=== PATIENT | female | born 1935 | race Caucasian/White ===

== ENCOUNTER 2023-09-05 21:25 | Emergency (ER) | payer MEDICARE, MEDICAID, SELFPAY ==
--- NOTE | ~2023-09-05 | XR_ITS ---
EXAMINATION: CHEST Abdomen CLINICAL INFORMATION: Evaluate prior to MRI COMPARISON: None. TECHNIQUE: Supine frontal view of the chest Frontal view of the abdomen FINDINGS: Chest: Tortuous aorta. No mediastinal or hilar mass. Low lung volumes. No dense consolidation or edema. There are no findings which would preclude safe performance of MRI. ABDOMEN: There is a large amount of gas and enteric material within large and small bowel throughout the abdomen and pelvis to the level of the rectum and nonobstructed pattern. Large fecal residue. Degenerative change in the spine. Narrowing and sclerosis with proliferative change around the right hip. There are no findings which would preclude safe performance of MRI XR/XR KUB IMPRESSION: No findings which would contraindicate safe performance of MRI
--- NOTE | ~2023-09-05 | MR_ITS ---
EXAMINATION: MR BRAIN WITHOUT CONTRAST CLINICAL INFORMATION: Acute vision changes. History of multiple sclerosis and lupus. COMPARISON: CT scan of the head earlier 09/06/2023. TECHNIQUE: MRI of the brain was obtained using routine sequences without contrast. FINDINGS: No diffusion abnormalities are identified to suggest an acute or subacute infarct. No mass effect or midline shift is seen. There is commensurate prominence of the ventricles and sulci consistent with diffuse volume loss. There are scattered areas of hyperintense T2 and FLAIR signal in the periventricular subcortical white matter, most consistent with chronic microvascular ischemic changes. In view of the patient's history, areas of demyelination cannot be excluded. No extra-axial fluid collections are seen. The brainstem appears normal. No pathologic magnetic susceptibility artifact is identified on the gradient refocused acquisition. The cerebellar tonsils have normal contour and position, and the craniocervical junction appears normal. Marrow signal and midline structures are normal. There is extensive hyperostosis frontalis interna. The orbits appear normal bilaterally. The major intracranial flow-voids at the level of the [place] of [place] are preserved. The dural venous sinus flow-voids are maintained. There is trace fluid at the right mastoid tip. There is mild mucoperiosteal thickening in the inferior right sphenoid sinus and in the bilateral anterior ethmoid air cells. MR/MR head/brain wo con IMPRESSION: 1. There are no acute bleeds or territorial infarcts. No masses are demonstrated. 2. There are chronic microvascular ischemic changes and there is diffuse volume loss.
--- NOTE | ~2023-09-05 | XR_ITS ---
EXAMINATION: CHEST Abdomen CLINICAL INFORMATION: Evaluate prior to MRI COMPARISON: None. TECHNIQUE: Supine frontal view of the chest Frontal view of the abdomen FINDINGS: Chest: Tortuous aorta. No mediastinal or hilar mass. Low lung volumes. No dense consolidation or edema. There are no findings which would preclude safe performance of MRI. ABDOMEN: There is a large amount of gas and enteric material within large and small bowel throughout the abdomen and pelvis to the level of the rectum and nonobstructed pattern. Large fecal residue. Degenerative change in the spine. Narrowing and sclerosis with proliferative change around the right hip. There are no findings which would preclude safe performance of MRI XR/XR chest 1V IMPRESSION: No findings which would contraindicate safe performance of MRI
--- NOTE | ~2023-09-05 | CT_ITS ---
EXAMINATION: CT head/brain wo IV con CLINICAL INFORMATION: Reason for Exam ams COMPARISON: None. TECHNIQUE: Contiguous axial imaging was performed from the skull base to vertex without intravenous contrast. Sagittal and coronal reformatted images were obtained. This CT examination was performed using dose optimization techniques as appropriate, variously including the following: * Automated exposure control * Adjustment of mA and/or kV according to patient size (this includes techniques or standardized protocols for targeted exams where dose is matched to indication/reason for exam; i.e. extremities or head) Use of iterative reconstruction technique DLP: 562 mGy-cm FINDINGS: No acute osseous or soft tissue abnormality. Degenerative changes of the left greater than right temporomandibular joints. The mastoid air cells and visualized portions of the paranasal sinuses are well aerated. There is no evidence of acute intracranial hemorrhage or territorial infarction. No abnormal mass effect or midline shift is seen. Colin to white matter differentiation is well preserved. No extra-axial fluid collections are identified. No hydrocephalus. No significant volume loss. Patchy periventricular and deep white matter hypoattenuation is consistent with mild to moderate small vessel ischemic changes. CT/CT head/brain wo IV con IMPRESSION: No acute intracranial abnormality including hemorrhage, mass effect, hydrocephalus, or acute territorial edematous infarction.
[2023-09-05 21:35] VITALS: BP 106/64; BP 119/72; PULSE 80; PULSE 87; RESP 16; TEMP 36.7; O2SAT 94; O2SAT 96; BMI 25.0
--- NOTE | 2023-09-05 22:06 | ED.GENADULT ---
HPI - General Adult General Chief complaint: Failure to Thrive Stated complaint: increased confusion, visual changes, hip pain Time Seen by Provider: 09/05/23 21:35 Source: patient and EMS Mode of arrival: EMS Limitations: altered mental status History of Present Illness HPI narrative: Patient's history of dementia details not available from group home place was at [facility] earlier today discharge comes back as staff noticed that she is more confused patient complaining of vision changes keep changing her complaints seems to be very confused feels that cough is causing her vision change Related Data Allergies Allergy/AdvReac Type Severity Reaction Status Date / Time No Known Allergies Allergy Verified 09/05/23 21:39 Review of Systems Review of Systems: Yes Unobtainable due to mental condition [facility] Social History Social History Advance Directives: No Advance Directives Information Provided: No Do you have a plan to hurt others: No Plan Physical Exam ED Vital Signs: Vital Signs - 24 hr 09/05/23 21:35 09/06/23 01:48 Temperature 98.0 F 97.9 F Pulse Rate 87 76 Respiratory Rate 16 16 Blood Pressure 119/72 138/67 Pulse Oximetry 96 97 Oxygen Delivery Method Room Air Room Air BMI result Body Mass Index 25.0 Appearance: Alert. Oriented X2-3. No acute distress. Eyes: PERRLA, No Nystagmus cataract+ ENT: Pharynx normal. Oral Mucosa moist Neck: Normal inspection. Neck supple. CVS: Normal heart rate and rhythm. Pulses normal. Respiratory: No respiratory distress. Equal air entry bilateral, no wheezing/rales/rhonchi Abdomen: Soft and nontender. Bowel sounds are present, no mass palpable, no CVA tenderness Skin: Skin warm and dry. Normal skin color. Normal skin turgor. Extremities: No lower extremity edema. No calf tenderness Neuro: Oriented X 2-3. No motor deficit. No sensory deficit.No cerebellar signs , cranial nerves II-XII intact Medical Decision Making Medical Decision Making [facility] Narrative: Patient with increased confusion with dementia will get records from [facility] no focal deficits labs are stable will get CT head rule out CVA and get case management Differential Diagnosis Differential Diagnoses: The differential diagnosis associated with the presentation includes Dementia/metabolic encephalopathy/UTI/CVA Lab Data [facility] Lab Attestation statement: I reviewed the patient's lab results. 09/05/23 23:45 09/05/23 23:45 Labs: Lab Results 09/05/23 09/06/23 Range/Units 23:45 01:35 WBC 10.3 (4.8-10.8) X10*3/uL RBC 4.00 L (4.20-5.50) X10*6/uL Hgb 12.2 (12.0-16.0) g/dl Hct 36.5 L (37.0-47.0) % MCV 91.3 (80.0-98.0) fL MCH 30.5 (27.0-33.0) pg MCHC 33.4 (31.0-35.0) g/dl RDW 19.3 H (11.0-16.0) % Plt Count 199 (160-400) X10*3/uL MPV 12.3 (9.4-12.3) fL Immature Gran % (Auto) 0.4 (0.0-0.4) % Neut % (Auto) 59.5 (45-73) % Lymph % (Auto) 25.8 (20-40) % [place] % (Auto) 10.9 (2-11) % Eos % (Auto) 2.7 (0-4) % Baso % (Auto) 0.7 (0-2) % Lymph # (Auto) 2.7 (1.2-4.9) X10*3/uL [place] # (Auto) 1.1 (0.1-1.2) X10*3/uL Eos # (Auto) 0.3 (0.0-0.4) X10*3/uL Baso # (Auto) 0.1 (0.0-0.2) X10*3/uL Abs Immat Gran (auto) 0.04 H (0.00-0.03) X10*3/uL Absolute Neuts (auto) 6.1 (2.0-8.3) x10*3/uL Absolute Nucleated RBC 0.000 (0.0-0.012) X10*3/uL Nucleated RBC % (auto) 0.0 (0.0-0.2) /100WBC Sodium 139 (135-145) mmol/L Potassium 3.9 (3.3-5.1) mmol/L Chloride 106 (96-108) mmol/L Carbon Dioxide 23 (22-29) mmol/L Anion Gap 14 (12-20) BUN 28 H (9-16) mg/dL Creatinine 0.86 (0.5-1.4) mg/dL Estim Creat Clear Calc 41.4 Estimated GFR > 60 Random Glucose 102 (60-115) mg/dL Calcium 9.4 (8.4-10.2) mg/dL Total Bilirubin 0.5 (0.0-1.0) mg/dL AST 14 (5-31) U/L ALT 9 (0-31) U/L Alkaline Phosphatase 49 (39-117) U/L Total Protein 6.6 (6.5-8.0) g/dL Albumin 3.9 (3.5-5.0) g/dL Urine Color Dark Yellow Urine Appearance Clear Urine pH 5.5 (5.0-9.0) Ur Specific Arp 1.025 (1.005-1.025) Urine Protein Negative (Neg-Trace) mg/dL Urine Glucose (UA) Negative (Negative) mg/dL Urine Ketones Negative (Negative) mg/dL Urine Blood Negative (Negative) Urine Nitrite Negative (Negative) Ur Leukocyte Esterase Trace H (Negative) Discharge Plan Discharge Clinical Impression: Dementia, Acute on chronic alteration in mental status Patient Disposition: Still a Patient Print Language: Uruguayan
--- NOTE | 2023-09-05 23:47 | MHC.EDTECH ---
Labs collected on Pt. Pt advised Dr ordered a urine sample but states she does not have to go at this time and states that she can tell us when she has to go.
[2023-09-05 23:49] LABS: MANUAL DIFF FLAG NO
[2023-09-05 23:50] LABS: Basophils Absolute Auto 0.1 X10*3/uL (0.0-0.2); Basophils Percent Auto 0.7 % (0-2); Eosinophils Absolute Auto 0.3 X10*3/uL (0.0-0.4); Eosinophils Percent Auto 2.7 % (0-4); Hematocrit 36.5 % (37.0-47.0); Hemoglobin 12.2 g/dl (12.0-16.0); Imm Gran Abs Auto 0.04 X10*3/uL (0.00-0.03); Imm Gran Pct Auto 0.4 % (0.0-0.4); Lymphocytes Absolute Auto 2.7 X10*3/uL (1.2-4.9); Lymphocytes Percent Auto 25.8 % (20-40); Mean Corpuscular HGB Conc 33.4 g/dl (31.0-35.0); Mean Corpuscular Hemoglobin 30.5 pg (27.0-33.0); Mean Corpuscular Volume 91.3 fL (80.0-98.0); Mean Platelet Volume 12.3 fL (9.4-12.3); Monocytes Absolute Auto 1.1 X10*3/uL (0.1-1.2); Monocytes Percent Auto 10.9 % (2-11); Neutrophils Absolute Auto 6.1 x10*3/uL (2.0-8.3); Neutrophils Percent Auto 59.5 % (45-73); Platelet Count 199 X10*3/uL (160-400); Red Cell Distribution Width 19.3 % (11.0-16.0); White Blood Count 10.3 X10*3/uL (4.8-10.8)
[2023-09-06 00:07] LABS: Alanine Aminotransferase 9 U/L (0-31); Albumin Level 3.9 g/dL (3.5-5.0); Alkaline Phosphatase 49 U/L (39-117); Anion Gap 14 (12-20); Aspartate Amino Transferase 14 U/L (5-31); Bilirubin Total 0.5 mg/dL (0.0-1.0); Blood Urea Nitrogen 28 mg/dL (9-16); Calcium 9.4 mg/dL (8.4-10.2); Carbon Dioxide 23 mmol/L (22-29); Chloride 106 mmol/L (96-108); Creatinine Clr Calc Pharmacy 41.4; Estimated Glomerular Filt Rate > 60; Glucose Random 102 mg/dL (60-115); Potassium 3.9 mmol/L (3.3-5.1); Sodium 139 mmol/L (135-145); Total Protein 6.6 g/dL (6.5-8.0)
--- NOTE | 2023-09-06 01:39 | MHC.EDTECH ---
T/w ambulated with Pt to and from bathroom with walker. Urine sample provided and sent. Pt lying in stretcher at this time.
[2023-09-06 01:41] LABS: Appearance Urine Clear; Color Urine Dark Yellow; Glucose Urine UA Negative (Negative); Leukocyte Esterase Urine Trace (Negative); Nitrite Urine Negative (Negative); PH 5.5 (5.0-9.0); Specific Gravity - Urine 1.025 (1.005-1.025); UMIC TRIGGER UACC YES; Urine Blood Negative (Negative); Urine Ketones Negative (Negative); Urine Protein Negative (Neg-Trace)
[2023-09-06 01:48] VITALS: BP 138/67; PULSE 76; RESP 16; TEMP 36.6; O2SAT 97
[2023-09-06 01:51] LABS: Bacteria Urine 1+ (None Seen); Hyaline Casts Urine 0-2 /LPF (0-2); RBC Urine 0-2 /HPF (0-2); UACC Culture Trigger YES
--- NOTE | 2023-09-06 03:10 | PC.NURSE ---
Pt resting at the bedside. No apparent distress noted. Able to engage in conversation with intermittent episodes of confusion. Pt is able to ambulate to the bathroom with a walker and one assist for safety.
[2023-09-06 04:00] VITALS: BP 108/58; PULSE 66; RESP 16; TEMP 36.2; O2SAT 96
--- NOTE | 2023-09-06 06:11 | MHC.EDTECH ---
Assisted Pt to and from bathroom, now resting comfortably in stretcher.
--- NOTE | 2023-09-06 08:33 | MHC.EDTECH ---
Patient ate 100% of breakfast. Patient currently in rinaldi bed. Patient states she is comfortable. Patient resting, respirations even and unlabored.
[2023-09-06 10:24] LABS: C Reactive Protein < 0.10 mg/dL (< or = 0.50)
[2023-09-06 10:50] LABS: Erythrocyte Sedimentation Rate 9 MM/HR (0-20)
[2023-09-06 13:04] VITALS: BP 137/70; PULSE 78; RESP 16; O2SAT 98
--- NOTE | 2023-09-06 14:09 | MHC.CM.ED ---
Received case management consult overnight from Dr Riley. Patient came to the ER via EMS due to confusion, visual changes and hip pain. Work up essentially negative. Physical therapy eval is pending. Per [facility], patient was inpatient there from 08/29-09/02 due to question of TIA. Capacity eval was completed. Patient was found to have capacity to make her own decisions. Patient was found to have severe cataracts, was d/c'd home with [facility] and outpatient follow up. Patient declined VNA when at home. Patient returned to [facility] ER on 09/04 due to vision issues. Patient declined vision acuity test at [facility]. Patient was d/c'd home and then apparently came to [facility] ER. Awaiting copy of [facility] d/c summary and HCP. Attempted to contact patient's friend/HCP, Cathyleonila Park via telephone at [phone]. Cathy is unable to talk at this time because she is in [place]. She will return call to kristie. Waiting for PT eval to determine safe d/c plan. Continue to monitor for d/c needs.
[2023-09-06 15:22] LABS: COVID-19 Test Negative (Negative); IDNOW Serial# 152EDE1D
--- NOTE | 2023-09-06 15:33 | MHC.CM.ED ---
Received return telephone call from Cathy. Cathy reports patient has been to [facility] 6 times in the past 30 days. Patient has received all services at home except for digital asset specialist. Patient's digital asset specialist has reported to Cathy that she is unsure of patient's ability to take care of herself and questions her grasp on reality. Cathy was able to further explain that patient states there is no adequate medical services in [facility]. 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 Cathy also states patient has been having a hard time dealing with life due to her limited eye vision, her mother passing away over a year ago and her older sister passing away over 3 years ago. Cathy also stated patient's biggest fear is dying of pneumonia. Patient has stated I feel safe in the hospital because people don't in the hospital. 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 T/W has concerns about patient safely discharging home at this time. Thelma HEEL BREASTER and Anamaria RN made aware. Psych consult ordered for capacity to see if patient can safely return home. Continue to monitor for d/c needs.
--- NOTE | 2023-09-06 17:51 | PC.NURSE ---
pt restless throughout shift, camera placed on pt in rinaldi as she will jump out of bed. pt demanding to walk home. educated pt on the safety of his matter. CM spoke with pts HCP. pt currently awaiting PT and psych eval. pt requiring frequent redirection and re-education related to why she is here and the plan of care. pt is otherwise alert and oriented but forgetful
[2023-09-06 18:10] VITALS: BP 118/60; PULSE 71; RESP 18; TEMP 36.6; O2SAT 98
--- NOTE | 2023-09-06 19:52 | PC.NURSE ---
pt repeatedly trying to get out of bed, says she is going anywhere but here, I have had enough of being in the hallway , no rooms available at this time. pt is upset she doesnt have a tv.
[2023-09-06] MEDS: OLANZapine 2.5 MG TABLET PO (21:06)
--- NOTE | 2023-09-06 21:11 | PC.NURSE ---
pt medicated per MAR, pt reports feeling restless
--- NOTE | 2023-09-06 22:29 | PC.NURSE ---
assist with ambulation to bathroom
[2023-09-06] MEDS: Melatonin 3 MG TABLET PO (22:55)
[2023-09-06] MEDS: Acetaminophen 325 MG TABLET 650 MG PO (23:45)
--- NOTE | 2023-09-07 00:18 | PC.NURSE ---
pt reporting her fentanyl patch was removed yesterday for MRI. now c/o R hip pain d/t not having patch. aware
--- NOTE | 2023-09-07 02:42 | PC.NURSE ---
spoke with pharmacy regarding fentanyl patch, 12 mcg not available. aware
[2023-09-07 02:56] VITALS: BP 128/67; PULSE 72; RESP 20; TEMP 36.9; O2SAT 98
[2023-09-07] MEDS: fentaNYL citrate/PF 100 MCG/2 ML VIAL 50 MCG IVPUSH (02:59)
--- NOTE | 2023-09-07 03:11 | PC.NURSE ---
pt medicated per MAR for pain
--- NOTE | 2023-09-07 03:23 | PC.NURSE ---
IV to L wrist infiltrated, new 22g IV placed to R upper arm
--- NOTE | 2023-09-07 03:58 | PC.NURSE ---
pt awake on the stretcher but resting comfortably at this time
--- NOTE | 2023-09-07 05:09 | PC.NURSE ---
pt resting comfortably with eyes closed, breathing even and unlabored. no apparent distress noted at this time
[2023-09-07 06:33] VITALS: BP 112/47; PULSE 59; RESP 18; TEMP 36.6; O2SAT 96
[2023-09-07] MEDS: fentaNYL 12 MCG PATCH.TD72 TRANSDERMA ×3 (08:25→10:33)
[2023-09-07] MEDS: Acetaminophen 325 MG TABLET 650 MG PO (11:37)
--- NOTE | 2023-09-07 13:42 | MHC.CM.ED ---
Patient remains in ER. Psych consult is pending to evaluate if patient has the capacity to make her own medical decisions. Attempted to speak to patient's sister/2nd HCP, Jojo, via telephone at [phone] for additional collateral. Left message requesting return telephone call. Patient requesting to speak with CM. CM met with patient again and explained that patient was waiting for a physical therapy eval and for psych to see her. Patient then stated I know what is wrong with the healthcare system . Patient then proceded to state There are not enough good PCP's. So everyone comes to the ER. The ER will need to start providing PCP care to patients to fix this. Continue to monitor for d/c needs.
[2023-09-07 19:44] VITALS: BP 120/77; PULSE 94; RESP 16
--- NOTE | 2023-09-07 19:49 | PC.NURSE ---
This RN assumed pt care @ 1900. Pt upset about not having a working tv. Pt requested and given dinner. Pt repositioned in bed for comfort Pt ca&ox3, no signs of distress. Plan of care ongoing.
--- NOTE | 2023-09-07 21:27 | PC.NURSE ---
Pt requested Zyprexa and when this RN attempted to administer med, pt took med and stated im not taking it now. I will take it at 2300. This RN asked pt take med now orthopedics teacher could bring med back at 2300. Pt stated I cannot trust you, you are all liars. Pt gave med back to RN after refusing. Pt states I hope you go to [facility] and I hope everyone that works here goes to [facility] Zyprexa wasted. Plan of care ongoing.
--- NOTE | 2023-09-07 22:59 | PC.NURSE ---
Pt requested and assisted to restroom. Pt requesting Zyprexa. Plan of care ongoing.
[2023-09-07] MEDS: OLANZapine 2.5 MG TABLET PO (23:05)
--- NOTE | 2023-09-07 23:07 | PC.NURSE ---
Pt given zyprexa as requested. Pt states I want something that will help me sleep, and if I dont get anything I'm going to make it hell for everyone here. Plan of care ongoing.
[2023-09-07] MEDS: LORazepam 2 MG/ML VIAL 1 MG IVPUSH (23:22)
[2023-09-07 23:25] VITALS: BP 111/70; PULSE 80; RESP 16; TEMP 36.7; O2SAT 98
--- NOTE | 2023-09-07 23:26 | MHC.EDTECH ---
This tech took over care of patient at 2300,hourly rounds and vitals completed,call bruno in reach
--- NOTE | 2023-09-08 00:06 | MHC.EDTECH ---
Patient ambulated with a 1 assist to the bathroom,patient has a slow and steady gait,patient urinated and is back in bed at this time.call bruno in reach
[2023-09-08] MEDS: LORazepam 1 MG TABLET 2 MG PO (02:43)
--- NOTE | 2023-09-08 04:40 | MHC.EDTECH ---
Assisted pt to bathroom with walker multiple times at every 30 min intervals. After being medicated by RN, pt started to get more unsteady on feet and bedside commode was brought to pt room. Pt being very difficult and adamant to walk to bathroom. This pct and RN explained to pt that it is only for her safety to make sure she does not fall. Pt expressed her frustration with her care and stated you are all liars and just want to keep me here to Camera in pt room to alert when pt gets up.
--- NOTE | 2023-09-08 04:55 | PC.NURSE ---
Pt A+Ox2 forgetful. Pt frequently getting up to urinate. One time dose PO ativan given as sleep aid. Pt demanded to get up and walk with walker to bathroom through unsteady. Bedside commode placed in room to minimize chance of fall. Camera in room and bed alarm on for safety. Call bruno within reach
--- NOTE | 2023-09-08 06:42 | MHC.EDTECH ---
Pt refused vitals. Pt states I'm not here for anything medical so you're not allowed to do that . RN notified. Pt keeps trying to get out of bed and demanding that the RN gives her more pills. Requesting advil, adivan and morphine. Multiple episodes of confusion where pt forgets that RN and Pct already talked to her. Pt requiring constant redirection. RN aware
[2023-09-08 10:00] VITALS: BP 133/66; PULSE 71; RESP 15; O2SAT 97
--- NOTE | 2023-09-08 10:39 | MHC.CM.PN ---
EMR REVIEWED, P.T. ATTEMPTED TO EVAL THIS AM HOWEVER UNABLE TO AROUSE PT AND WILL REVISIT, PSYCH CONSULT FOR CAPACITY STILL PENDING, CM WILL CONT TO FOLLOW.
--- NOTE | 2023-09-08 10:51 | PM.PSYCN ---
History of Present Illness Date of Service: 09/08/23 Chief Complaint: increased confusion, visual changes, hip pain Reason for Consult: capacity eval Requesting physician: Thelma Jeff Discussed with referring provider: Yes Sources of Information: patient interviewed and chart reviewed HPI Narrative: pt seen lying in bed. she is slightly irritable and dismissive upon approach. pt states sheis here inhospital due to police calling ambulance due toconcerns about how she was walking in common room at assisted living. pt states she came to common room to ask someone for help because her clock had stopped working. 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 She asks me to call her Dr Hernandez. She does report a history of being misjudged and at times discriminated due to being a woman, saying everyone thought I should just get but I loved teaching the students. pt participated in MOCA screening, she reported having cataracts so could not do some of the tests that required seeing well or drawing; she was able to name 3 animals , recalled 5 /5 immediately but only 1 after five minutes. she was able to recite 5 digits backward without hesitation. she was able to count backwards from 100 She scored 100% on abstractions. she is oriented x 4 knew month, year, day of week, [facility] nancy MADRID and presidebt of us is michela. Past Psychiatric History: pt denies Personal & Social History: lives alone, had 3 sibkings - s2 and Morena still alive; pt has VNA and RN DOCUMENTATION services at home Review of Systems Review of Systems Yes Unobtainable due to mental condition Diagnostics Vital Signs (24Hr): Vital Signs - 24 hr 09/07/23 19:44 09/07/23 23:25 09/08/23 10:00 Temperature 98.0 F Pulse Rate 94 80 71 Respiratory Rate 16 16 15 Blood Pressure 120/77 111/70 133/66 Pulse Oximetry 98 97 Oxygen Delivery Method Room Air Room Air BMI result Body Mass Index 25.0 Labs 09/05/23 23:45 09/05/23 23:45 Labs: Laboratory Results - last 48 hr 09/06/23 09/06/23 15:04 23:45 ESR 9 COVID-19 ([facility]) Negative COVID-19 Clin Com See Note Imaging Radiology Impressions: ITS Impressions Head CT 09/06/23 02:05 IMPRESSION: No acute intracranial abnormality including hemorrhage, mass effect, hydrocephalus, or acute territorial edematous infarction. Chest X-Ray 09/06/23 11:23 IMPRESSION: No findings which would contraindicate safe performance of MRI KUB X-Ray 09/06/23 11:23 IMPRESSION: No findings which would contraindicate safe performance of MRI Brain MRI 09/06/23 12:15 IMPRESSION: 1. There are no acute bleeds or territorial infarcts. No masses are demonstrated. 2. There are chronic microvascular ischemic changes and there is diffuse volume loss. Medications Medications Current Medications Olanzapine (Olanzapine 2.5 Mg Tablet) 2.5 mg PO BEDTIME BALTAZAR Last Admin: 09/07/23 23:05 Dose: 2.5 mg Allergies Allergies Allergy/AdvReac Type Severity Reaction Status Date / Time No Known Allergies Allergy Verified 09/05/23 21:39 Assessment & Plan Assessment & Plan (1) Acute on chronic alteration in mental status: Status: Acute Code(s): R41.82 - Altered mental status, unspecified (2) Dementia: Status: Acute Code(s): F03.90 - Unspecified dementia, unspecified severity, without behavioral disturbance, psychotic disturbance, mood disturbance, and anxiety Plan pt has capacity to make decison about health care at this time; she does need help with daily functioning Total time managing care of this patient today ____ minutes.
[2023-09-08 14:00] VITALS: BP 101/59; PULSE 76; RESP 14; O2SAT 97
[2023-09-08 16:35] VITALS: BP 101/62
[2023-09-08] MEDS: OLANZapine 2.5 MG TABLET PO (21:07)
[2023-09-08 21:08] VITALS: BP 103/63; PULSE 67; RESP 16; TEMP 36.9; O2SAT 96
--- NOTE | 2023-09-08 21:08 | MHC.EDTECH ---
THIS PCT ASSUMED CARE OF PATIENT AT 1900 ,VITALS TAKEN ,PT WAS ASSISTED TO BEDSIDE COMMODE AND BACK TO BED ,FRESH WATER GIVEN AND WARM BLANKET .
--- NOTE | 2023-09-08 22:22 | PC.NURSE ---
pt resting comfortably at this time, denies any pain. assist with boost in bed, changed TV channel. call kiana w/in reach
[2023-09-09 05:25] VITALS: BP 110/54; PULSE 67; RESP 16; TEMP 36.4; O2SAT 97
--- NOTE | 2023-09-09 10:45 | PC.NURSE ---
pt calm and cooperative with care this AM.
[2023-09-09 11:50] VITALS: BP 115/52; PULSE 83; RESP 18; TEMP 36.6; O2SAT 94
[2023-09-09] MEDS: Famotidine 20 MG TABLET PO (13:56)
--- NOTE | 2023-09-09 14:53 | MHC.CM.ED ---
Patient remains in ER overflow. Per psych, has capacity to make her own decisions. Physical therapy eval completed. Short term rehab is recommended. Referral broadcasted within 15 miles of patient's home at this time. Copy of discharge summary and HCP requested from [facility]. Continue to monitor for d/c needs.
[2023-09-09 16:40] VITALS: BP 113/56; PULSE 78; RESP 16; TEMP 36.3; O2SAT 98
--- NOTE | 2023-09-09 17:06 | MHC.CM.ED ---
CM met with patient to discuss plan of care moving forward. Pt aware that [facility] should have a bed in the morning for STR. Pt is agreeable. Pt is aware that CM will follow up with her in the morning. CM will follow for discharge planning.
--- NOTE | 2023-09-09 18:10 | MHC.EDTECH ---
Pt ate 100% of her dinner and 240cc of fluids
[2023-09-09] MEDS: OLANZapine 2.5 MG TABLET PO (21:25)
--- NOTE | 2023-09-09 21:27 | PC.NURSE ---
Addendum entered by Rozina Holt RN 09/10/23 01:53: pt oob to BR with a walker and standby assist, pt tolerated well, returned to bed with any difficulties. bed alarmed for safety Original Note: assumed care at 1900, pt assessed, c/o visual problems, medicated per jun, eating, bed alarmed for safety
[2023-09-10 02:00] VITALS: BP 100/56; PULSE 74; RESP 14; TEMP 36.3; O2SAT 94
--- NOTE | 2023-09-10 07:59 | PHA.MEDREC ---
Pharmacy Consult ? Medication Reconciliation Pharmacy has completed the medication reconciliation. reviewed med rec done by nursing.
[2023-09-10 08:21] VITALS: BP 118/82; PULSE 85; RESP 16; TEMP 37.1; O2SAT 98
[2023-09-10] MEDS: DULoxetine HCl 30 MG CAPSULE.DR PO (08:26)
[2023-09-10] MEDS: Atorvastatin Calcium 20 MG TABLET PO (08:26)
[2023-09-10] MEDS: Ondansetron ODT 4 MG TAB.RAPDIS TRANSLINGU (08:26)
--- NOTE | 2023-09-10 09:43 | MHC.CM.ED ---
Addendum entered by Zoey Sebastian 09/10/23 13:32: Ismael MILLER booked for 1pm. Med nec with chart. Patient, friend Parul Fay RN and Ciera ENGLAND aware. Patient's sister/2nd HCP, Jojo, made aware via telephone at [phone]. Left message for friend/1st HCP, Cathy, at [phone] requesting return telephone call. Original Note: Patient remains in ER overflow. Copy of HCP obtained from PCP's office. [facility] PASRR Level 1 completed. Both sent to [facility]. Continue to monitor for d/c needs.
== END 2023-09-10 12:56 ==
PROVIDERS: Nurse Practitioner Family; Emergency Provider Internal Medicine; PCP Internal Medicine
DX: R41.82 Altered mental status, unspecified (principal); R62.7 Adult failure to thrive; Z68.25 Body mass index [BMI] 25.0-25.9, adult; F03.90 Unspecified dementia, unspecified severity, without behavioral disturbance, psychotic disturbance, mood disturbance, and anxiety; R05.9 Cough, unspecified; Z79.02 Long term (current) use of antithrombotics/antiplatelets; Z79.899 Other long term (current) drug therapy
CPT/HCPCS: 36415; 70450; 70551; 71045; 74018; 80053; 81001; 85025; 85652; 86140; 87086; 87635; 96374; 96375; 97162; 99285; J2060; J3010

== ENCOUNTER → 2023-09-05 22:46 | Outpatient (BNV) | payer MEDICARE, MEDICAID, SELFPAY | PROVIDERS: Emergency Provider Internal Medicine; Visit Provider Clinical Nurse Specialist Psychiatric/Mental Health | DX: R41.82 Altered mental status, unspecified (principal); F03.90 Unspecified dementia, unspecified severity, without behavioral disturbance, psychotic disturbance, mood disturbance, and anxiety | CPT/HCPCS: 99222 ==

== ENCOUNTER 2023-10-28 12:41 | Emergency (ER) | payer MEDICARE, MEDICAID, SELFPAY ==
[2023-10-28] VITALS (9 sets, daily range): BP systolic 110–157; BP diastolic 60–78; PULSE 58–81; RESP 14–20; TEMP 36.7–37.3; O2SAT 96–99; BMI 22.3
--- NOTE | 2023-10-28 13:05 | ECG_ITS ---
Test Reason : weakness Blood Pressure : / mmHG Vent. Rate : 064 BPM Atrial Rate : 064 BPM P-R Int : 158 ms QRS Dur : 090 ms QT Int : 416 ms P-R-T Axes : 017 017 037 degrees QTc Int : 429 ms Normal sinus rhythm Normal ECG No previous ECGs available Referred By: Nydia Daniels Electronically Signed By:ELE TOMPKINS MD
[2023-10-28 13:50] LABS: Alanine Aminotransferase 6 U/L (0-31); Albumin Level 3.7 g/dL (3.5-5.0); Alkaline Phosphatase 55 U/L (39-117); Anion Gap 12 (12-20); Aspartate Amino Transferase 11 U/L (5-31); Bilirubin Direct 0.1 mg/dL (0.0-0.5); Bilirubin Total 0.5 mg/dL (0.0-1.0); Blood Urea Nitrogen 13 mg/dL (9-16); Calcium 8.8 mg/dL (8.4-10.2); Carbon Dioxide 21 mmol/L (22-29); Chloride 111 mmol/L (96-108); Creatinine Clr Calc Pharmacy 38.4; Estimated Glomerular Filt Rate 60; Glucose Random 94 mg/dL (60-115); Magnesium 1.5 mg/dL (1.6-2.6); Potassium 3.3 mmol/L (3.3-5.1); Sodium 141 mmol/L (135-145); Total Protein 5.9 g/dL (6.5-8.0)
--- NOTE | 2023-10-28 14:04 | MHC.EDTECH ---
pt was 1 assisted to commode with steady gait and very little assistance, clean catch urine sample collected, RN aware
[2023-10-28 14:05] LABS: Appearance Urine Hazy; Color Urine Yellow; Glucose Urine UA Negative (Negative); Leukocyte Esterase Urine Small (1+) (Negative); Nitrite Urine Positive (Negative); PH 5.5 (5.0-9.0); Specific Gravity - Urine 1.025 (1.005-1.025); UMIC TRIGGER UACC YES; Urine Blood Trace (Negative); Urine Ketones Negative (Negative); Urine Protein Trace mg/dL (Neg-Trace)
[2023-10-28 14:12] LABS: Bacteria Urine 4+ (None Seen); Hyaline Casts Urine 0-2 /LPF (0-2); RBC Urine 0-2 /HPF (0-2); UACC Culture Trigger YES
[2023-10-28 14:15] LABS: Basophils Absolute Auto 0.1 X10*3/uL (0.0-0.2); Basophils Percent Auto 0.9 % (0-2); Eosinophils Absolute Auto 0.2 X10*3/uL (0.0-0.4); Eosinophils Percent Auto 2.4 % (0-4); Hematocrit 33.6 % (37.0-47.0); Hemoglobin 10.8 g/dl (12.0-16.0); Imm Gran Abs Auto 0.03 X10*3/uL (0.00-0.03); Imm Gran Pct Auto 0.3 % (0.0-0.4); Lymphocytes Absolute Auto 1.9 X10*3/uL (1.2-4.9); Mean Corpuscular HGB Conc 32.1 g/dl (31.0-35.0); Mean Corpuscular Hemoglobin 27.8 pg (27.0-33.0); Mean Corpuscular Volume 86.4 fL (80.0-98.0); Mean Platelet Volume 11.8 fL (9.4-12.3); Monocytes Absolute Auto 1.1 X10*3/uL (0.1-1.2); Monocytes Percent Auto 12.1 % (2-11); Neutrophils Absolute Auto 5.5 x10*3/uL (2.0-8.3); Neutrophils Percent Auto 62.3 % (45-73); Platelet Count 185 X10*3/uL (160-400); Red Blood Count 3.89 X10*6/uL (4.20-5.50); Red Cell Distribution Width 19.2 % (11.0-16.0); White Blood Count 8.8 X10*3/uL (4.8-10.8)
[2023-10-28 14:17] LABS: Glucose, Whole Blood 88 mg/dL (60-115)
[2023-10-28 14:19] LABS: Amphetamine Screen Urine Not Detected (Not Detect); Barbiturates, Urine Not Detected (Not Detect); Benzodiazepines Screen Urine Not Detected (Not Detect); Buprenorphine Scr Not Detected (Not Detect); Cannabinoid Screen Urine Not Detected (Not Detect); Cocaine Screen Urine Not Detected (Not Detect); Fentanyl, urine POSITIVE (Not Detect); Methadone Screen, Urine Not Detected (Not Detect); Opiate Screen Urine Not Detected (Not Detect); Oxycodone Screen Urine Not Detected (Not Detect); Phencyclidine Screen Urine Not Detected (Not Detect)
--- NOTE | 2023-10-28 15:08 | MHC.EDTECH ---
pt was 1 assisted to bedside commode with little assistance, pt was helped back to bed, warm blankets given, call bruno within reach
--- NOTE | 2023-10-28 15:13 | PC.NURSE ---
Steph at [facility] [phone] Ext [phone]
--- NOTE | 2023-10-28 16:43 | ED.GENADULT ---
HPI - General Adult General Chief complaint: General Medical Stated complaint: feels unwell fever blurred vision Time Seen by Provider: 10/28/23 16:43 History of Present Illness ED Provider: Dr. Alex Mejias HPI narrative: 88-year-old female with a history of chronic right hip pain which is treated with fentanyl patches 12 mcg q.72 hours who was sent to the emergency department from her [facility] for not appearing well. The patient told the nurse that she lives in [place] and lives close to the [facility]. She walk to the [facility] and when she got there staff felt that she did not appear well. Patient complained of blurred vision, feeling short of breath and feeling weak. Patient had similar complaints in the past and was seen at [facility] and had a negative workup including an MRI. She was also seen here on 09/04/2024 and also had a negative workup for these symptoms including CT scan MRI and blood work. The MRI here revealed chronic microvascular ischemic changes and diffuse volume loss but no other acute findings After her ED stay she was sent to the [facility] ([facility]) but it is unclear if she had any services set up for her at home. The patient told me that she has an upper respiratory tract infection with her symptoms including a dry nonproductive cough and feeling short of breath. Patient was oriented to person, place, month and year. She answers all questions appropriately. Related Data Home Medications ?Medication ?Instructions ?Recorded ?Confirmed atorvastatin 20 mg tablet 20 mg PO DAILY 09/08/23 09/08/23 duloxetine 30 mg capsule,delayed 30 mg PO DAILY 09/08/23 09/08/23 release esomeprazole magnesium 40 mg 40 mg PO DAILY 09/08/23 09/08/23 capsule,delayed release fentanyl 12 mcg/hr transdermal 3 patch transdermal Q3D 09/08/23 09/08/23 patch albuterol sulfate 90 mcg/actuation 2 puff inhalation Q4H PRN 09/10/23 09/10/23 aerosol inhaler Shortness Of Breath Or Wheezing Previous Rx's ?Medication ?Instructions ?Recorded fentanyl 12 mcg/hr transdermal 3 patch transdermal Q72H #5 ea 09/10/23 patch Allergies Allergy/AdvReac Type Severity Reaction Status Date / Time No Known Allergies Allergy Verified 10/28/23 12:53 Review of Systems Review of Systems: Yes all other systems are reviewed and are negative [facility] Past Medical History [facility] Narrative: Social history: The patient states she lives alone. She has some with the helps her with housekeeping but does not have anyone that helps her with her medications. She denies tobacco, alcohol and drug use. Social History Social History Smoked in Last 30 Days: No Advance Directives: Yes Advance Directives on File: Yes Advance Directives Date on File: 09/10/23 Physical Exam ED Vital Signs: Vital Signs - 24 hr 10/28/23 12:52 10/28/23 13:03 10/28/23 14:12 Temperature 98.4 F 99.2 F Pulse Rate 75 58 Respiratory Rate 18 14 Blood Pressure 143/62 H Pulse Oximetry 97 96 Oxygen Delivery Method Room Air Room Air 10/28/23 17:03 Temperature 98.1 F Pulse Rate 62 Respiratory Rate 14 Blood Pressure 157/78 H Pulse Oximetry 99 Oxygen Delivery Method Room Air BMI result Body Mass Index 22.3 Vital signs were normal Exam: General: Awake, alert in no distress, oriented to person, place, month and year. Patient has a very flat affect Head: Normocephalic, atraumatic EENT: PERRL, Lids normal, sclera normal, conjunctiva normal, nose normal , ears normal, throat without erythema or exudates Neck: Supple, no adenopathy Lung: breath sounds symmetric, no wheezing, rales or rhonchi Chest: symmetric movement, nontender Heart: regular rate and rhythm, normal S1, S2 no murmurs or rubs Abdomen: soft, non-tender, nondistended, normal bowel sounds Back: no vertebral tenderness, no CVAT Extremities: no deformities, moves all extremities symmetrically Neuro: Awake, alert, oriented, normal speech, cranial nerves intact, moves all extremities symmetrically, patient was able to walk without assistance with a slow gait Psych: Flat affect, cooperative Medical Decision Making Medical Decision Making MDM Narrative: 88-year-old female with a history of chronic right hip pain which is treated with fentanyl patches 12 mcg q.72 hours who was sent to the emergency department from her [facility] for not appearing well. Patient states she has an upper respiratory tract infection, she feels weak and has blurred vision. She states she has had these symptoms for very long time and had a negative workup here on 09/04/[address] scan and an MRI that revealed no acute findings-she did have chronic microvascular ischemia with diffuse volume loss. Vital signs were normal. Physical examination was unremarkable. Differential diagnosis: ?Includes but is not limited to myocardial infarction, myocardial ischemia, electrolyte abnormalities, anemia, unintentional fentanyl overdose secondary to wearing too many patches Following evaluation was ordered: CBC, BMP, liver panel, magnesium, urinalysis, EKG Course: 17:27 My interpretation patient's laboratory evaluation is as follows: Normocytic anemia with an H&H of 10.8 and 33.6. Normal WBC 8800. Magnesium low 1.5. Urinalysis positive for leukocyte esterase and nitrates. Microscopic revealed 11-20 WBCs, 6-10 squamous cells, 4+ bacteria-the patient has no symptoms At this time, I believe that the patient's symptoms that she is complaining of her chronic. I do not think that she has a lung infection or an upper respiratory tract infection based on her symptoms. I am concerned that the patient had 5 fentanyl patches on and she can not explain this. I will obtain a case management consult to determine what type of services the patient has at home. 20:54 Start physician observation The patient was seen by our immigration case manager. The immigration case manager was unable to reach [facility] who is aware of this patient's home situation. The patient does have meals on wheels and a housecleaner floor but it is unclear she has anyone to his sister with her medical needs. Given the fact that the patient had 5 fentanyl patches her body and was unaware of this situation, the patient will be kept in the emergency room overnight for observation until we can determine a safe disposition for her tomorrow morning. I did discuss this with the patient and she is agreeable to stay in the hospital overnight. She is requesting something to help her sleep while she was in the emergency department therefore I ordered Zyprexa 10 mg orally. I also ordered a fentanyl transdermal 12 mcg and this should be removed in 72 hours. Patient will remain in the emergency department until disposition can be determined or until patient's symptoms improve over time. I was informed by the nurse then we do not have 12 mcg fentanyl patches. I am concerned that the patient will withdraw if she does not get transdermal fentanyl therefore I ordered a fentanyl 25 mcg transdermal patch. Admission/Observation Consideration of admission/observation: Escalation of care including admission/observation considered Lab Data MDM Lab Attestation statement: I reviewed the patient's lab results. 10/28/23 13:58 10/28/23 13:30 Labs: Lab Results 10/28/23 10/28/23 10/28/23 Range/Units 13:30 13:55 13:58 WBC 8.8 (4.8-10.8) X10*3/uL RBC 3.89 L (4.20-5.50) X10*6/uL Hgb 10.8 L (12.0-16.0) g/dl Hct 33.6 L (37.0-47.0) % MCV 86.4 (80.0-98.0) fL MCH 27.8 (27.0-33.0) pg MCHC 32.1 (31.0-35.0) g/dl RDW 19.2 H (11.0-16.0) % Plt Count 185 (160-400) X10*3/uL MPV 11.8 (9.4-12.3) fL Immature Gran % (Auto) 0.3 (0.0-0.4) % Neut % (Auto) 62.3 (45-73) % Lymph % (Auto) 22.0 (20-40) % Mellette % (Auto) 12.1 H (2-11) % Eos % (Auto) 2.4 (0-4) % Baso % (Auto) 0.9 (0-2) % Lymph # (Auto) 1.9 (1.2-4.9) X10*3/uL Mellette # (Auto) 1.1 (0.1-1.2) X10*3/uL Eos # (Auto) 0.2 (0.0-0.4) X10*3/uL Baso # (Auto) 0.1 (0.0-0.2) X10*3/uL Abs Immat Gran (auto) 0.03 (0.00-0.03) X10*3/uL Absolute Neuts (auto) 5.5 (2.0-8.3) x10*3/uL Absolute Nucleated RBC 0.000 (0.0-0.012) X10*3/uL Nucleated RBC % (auto) 0.0 (0.0-0.2) /100WBC Sodium 141 (135-145) mmol/L Potassium 3.3 (3.3-5.1) mmol/L Chloride 111 H (96-108) mmol/L Carbon Dioxide 21 L (22-29) mmol/L Anion Gap 12 (12-20) BUN 13 (9-16) mg/dL Creatinine 0.89 (0.5-1.4) mg/dL Estim Creat Clear Calc 38.4 Estimated GFR 60 POC Glucose (60-115) mg/dL Random Glucose 94 (60-115) mg/dL Calcium 8.8 D (8.4-10.2) mg/dL Magnesium 1.5 L (1.6-2.6) mg/dL Total Bilirubin 0.5 (0.0-1.0) mg/dL Direct Bilirubin 0.1 (0.0-0.5) mg/dL AST 11 (5-31) U/L ALT 6 (0-31) U/L Alkaline Phosphatase 55 (39-117) U/L Total Protein 5.9 L (6.5-8.0) g/dL Albumin 3.7 (3.5-5.0) g/dL Urine Color Yellow Urine Appearance Hazy Urine pH 5.5 (5.0-9.0) Ur Specific [place] 1.025 (1.005-1.025) Urine Protein Trace (Neg-Trace) mg/dL Urine Glucose (UA) Negative (Negative) mg/dL Urine Ketones Negative (Negative) mg/dL Urine Blood Trace (Negative) Urine Nitrite Positive H (Negative) Ur Leukocyte Esterase Small (1+) H (Negative) Urine RBC 0-2 (0-2) /HPF Urine WBC 11-20 H (0-5) /HPF Ur Squamous Epith Cells 6-10 (0-2) /HPF Urine Bacteria 4+ (None Seen) Hyaline Casts 0-2 (0-2) /LPF Urine Opiates Screen Not Detected (Not Detect) Ur Buprenorphine Scrn Not Detected (Not Detect) ng/mL Ur Oxycodone Screen Not Detected (Not Detect) ng/mL Urine Methadone Screen Not Detected (Not Detect) ng/mL Urine Fentanyl Screen POSITIVE H (Not Detect) Ur Barbiturates Screen Not Detected (Not Detect) Ur Phencyclidine Scrn Not Detected (Not Detect) Ur Amphetamines Screen Not Detected (Not Detect) U Benzodiazepines Scrn Not Detected (Not Detect) Urine Cocaine Screen Not Detected (Not Detect) U Marijuana (THC) Screen Not Detected (Not Detect) 10/28/23 Range/Units 14:12 WBC (4.8-10.8) X10*3/uL RBC (4.20-5.50) X10*6/uL Hgb (12.0-16.0) g/dl Hct (37.0-47.0) % MCV (80.0-98.0) fL MCH (27.0-33.0) pg MCHC (31.0-35.0) g/dl RDW (11.0-16.0) % Plt Count (160-400) X10*3/uL MPV (9.4-12.3) fL Immature Gran % (Auto) (0.0-0.4) % Neut % (Auto) (45-73) % Lymph % (Auto) (20-40) % Mellette % (Auto) (2-11) % Eos % (Auto) (0-4) % Baso % (Auto) (0-2) % Lymph # (Auto) (1.2-4.9) X10*3/uL Mellette # (Auto) (0.1-1.2) X10*3/uL Eos # (Auto) (0.0-0.4) X10*3/uL Baso # (Auto) (0.0-0.2) X10*3/uL Abs Immat Gran (auto) (0.00-0.03) X10*3/uL Absolute Neuts (auto) (2.0-8.3) x10*3/uL Absolute Nucleated RBC (0.0-0.012) X10*3/uL Nucleated RBC % (auto) (0.0-0.2) /100WBC Sodium (135-145) mmol/L Potassium (3.3-5.1) mmol/L Chloride (96-108) mmol/L Carbon Dioxide (22-29) mmol/L Anion Gap (12-20) BUN (9-16) mg/dL Creatinine (0.5-1.4) mg/dL Estim Creat Clear Calc Estimated GFR POC Glucose 88 (60-115) mg/dL Random Glucose (60-115) mg/dL Calcium (8.4-10.2) mg/dL Magnesium (1.6-2.6) mg/dL Total Bilirubin (0.0-1.0) mg/dL Direct Bilirubin (0.0-0.5) mg/dL AST (5-31) U/L ALT (0-31) U/L Alkaline Phosphatase (39-117) U/L Total Protein (6.5-8.0) g/dL Albumin (3.5-5.0) g/dL Urine Color Urine Appearance Urine pH (5.0-9.0) Ur Specific [place] (1.005-1.025) Urine Protein (Neg-Trace) mg/dL Urine Glucose (UA) (Negative) mg/dL Urine Ketones (Negative) mg/dL Urine Blood (Negative) Urine Nitrite (Negative) Ur Leukocyte Esterase (Negative) Urine RBC (0-2) /HPF Urine WBC (0-5) /HPF Ur Squamous Epith Cells (0-2) /HPF Urine Bacteria (None Seen) Hyaline Casts (0-2) /LPF Urine Opiates Screen (Not Detect) Ur Buprenorphine Scrn (Not Detect) ng/mL Ur Oxycodone Screen (Not Detect) ng/mL Urine Methadone Screen (Not Detect) ng/mL Urine Fentanyl Screen (Not Detect) Ur Barbiturates Screen (Not Detect) Ur Phencyclidine Scrn (Not Detect) Ur Amphetamines Screen (Not Detect) U Benzodiazepines Scrn (Not Detect) Urine Cocaine Screen (Not Detect) U Marijuana (THC) Screen (Not Detect) Independent Interpretation I performed an independent interpretation of an: EKG Interpretation: My independent interpretation patient's 12 EKG is as follows: Normal sinus rhythm with a rate of 64, normal SD interval, QRS duration QTC interval, no ST segment elevation, no ST segment depression, flattened T-waves lead 3, no PACs, no PVCs Discharge Plan Discharge Clinical Impression: Fentanyl dependence, Vision blurred Patient Disposition: Still a Patient Prescriptions: No Action atorvastatin 20 mg tablet 20 mg PO DAILY esomeprazole magnesium 40 mg capsule,delayed release(DR/EC) 40 mg PO DAILY duloxetine 30 mg capsule,delayed release(DR/EC) 30 mg PO DAILY fentanyl 12 mcg/hr patch 72 hour 3 patch transdermal Q3D albuterol sulfate 90 mcg/actuation HFA aerosol inhaler 2 puff inhalation Q4H PRN (Reason: Shortness Of Breath Or Wheezing) fentanyl 12 mcg/hr patch 72 hour 3 patch transdermal Q72H Qty: 5 0RF Rx Instructions: Partial Fill upon patient request. Print Language: Spanish
--- NOTE | 2023-10-28 17:22 | PC.NURSE ---
pt ambulated independently. Standby assist their for precaution. No walker or cane, pt with steady gait
--- NOTE | 2023-10-28 18:02 | MHC.EDTECH ---
camera placed in room for pt safety d/t being a fall risk, RN aware
[2023-10-28] MEDS: OLANZapine 10 MG TABLET PO (21:08)
[2023-10-28] MEDS: fentaNYL 25 MCG PATCH.TD72 TRANSDERMA (21:10)
[2023-10-28] MEDS: OLANZapine 10 MG VIAL IM (22:11)
--- NOTE | 2023-10-28 22:38 | MHC.CM.ED ---
Patient screaming for help. Believes staff is out to hurt her. Yelling that she is being held against her will. Believes she is being medicated against her will. Trying to climb out of bed. Unable to re-direct her. Nursing staff and CM tried to calm her fears. Pt received IM medication. Requested psych for capacity consult. Pt does not appear able to safely care for herself.
--- NOTE | 2023-10-28 22:54 | PC.NURSE ---
Patient screaming that staff is hurting her and harming her, and holding me against my will and giving me medication without my permission. Patient was attempted to be redirected by the camera monitor, a sitter, and numerous staff. Patient stated that all the staff are evil, hateful, and only wanting to put her to sleep for the night. There were numerous attempts prior to the PO zyprexa of going to the bathroom and repositioning with no help.Patient continued prior to the sitter to try and scoot off the end of the bed repeatedly. SItter was initiated for the safety of the patient at which time patient was swinging and grabbing at staff, trying to pull out IV,etc. At one point there were 5 staff members present attempting to calm the patient and to no avail it did not work. Patient was dosed with Zyprexa IM ultimately for her safety. Patient even after receiving IM zyprexa is attempting to scratch and swing at staff. She states, just let me outside in the parking lot so I can hitchhike home. We reassured her why she was here and what the plan was for the morning, when patient stated, Well I will never go to the [facility] again after this. At this moment patient is still awake and restless, screaming don't touch me
--- NOTE | 2023-10-28 23:08 | PC.NURSE ---
Patient now screaming, help, help, help, repeatedly.
--- NOTE | 2023-10-28 23:13 | PC.NURSE ---
Patient currently attempting to slide through the side rails. Redirection is not working, staff assisting patient back to center of bed
[2023-10-29] VITALS (15 sets, daily range): BP systolic 102–167; BP diastolic 47–98; PULSE 59–106; RESP 14–22; TEMP 36.2–37.2; O2SAT 95–99
--- NOTE | 2023-10-29 00:04 | PC.NURSE ---
patient ambulated to bathroom with assist of 1. very unsteady gait. Screaming, help repeatedly over and over. Attempted to switch sitters to see if that would help and it did not. Nurse at bedside and patient attempting to reach for staff amd then pumched staff in stomach. Youre all monsters.
[2023-10-29] MEDS: Acetaminophen 325 MG TABLET 975 MG PO (00:30)
[2023-10-29] MEDS: Phenazopyridine HCL 100 MG TABLET PO (01:17)
[2023-10-29] MEDS: cefuroxime axetiL 250 MG TABLET PO ×2 (01:20→11:31)
--- NOTE | 2023-10-29 01:45 | PC.NURSE ---
Patient still being combative and attempting to hit staff at this time.
--- NOTE | 2023-10-29 02:12 | PC.NURSE ---
patient requesting to go to the cabinet for peaches, to go outside and walk. Patient is still intrmittently screaming HELP. Patient has been reoriented several times and to no avail does this seem to help the patient.
[2023-10-29] MEDS: risperiDONE 1 MG TABLET PO (02:29)
--- NOTE | 2023-10-29 04:14 | PC.NURSE ---
Patient grabbing staff, attempting to dismantle wall equipment, and attempting to get out of bed. Patient kicking staff.
[2023-10-29] MEDS: LORazepam 2 MG/ML VIAL IM (04:21)
--- NOTE | 2023-10-29 05:36 | PC.NURSE ---
Patient remains restless but less violent
--- NOTE | 2023-10-29 06:13 | MHC.EDTECH ---
Patient is less restless ,But still trying to get oob ,Was incontinent of urine ,care given and bedding change ,vitals taken .
[2023-10-29] MEDS: OLANZapine 10 MG VIAL IM (09:20)
--- NOTE | 2023-10-29 10:03 | MHC.CM.ED ---
Patient remains in ER. Psych consult pending. Received telephone call from Jake wolf [facility]. He can be reached via telephone at [phone]. Patient receives meals on wheels 5 days a week and 6 hours a week of personal care/homemaking. Patient had someone for heavy chores in order to pickle pumper human feces. But patient fired this worker before coming into the ER. [facility] has tried to put additional services in patient's home but she has refused stating if they're not providing medical care then I don't need them. [facility] has also been trying to get patient into LTC, which patient has been agreeable to. Continue to monitor for d/c needs.
--- NOTE | 2023-10-29 11:31 | PC.NURSE ---
Antibiotic administered late d/t pt. being too combative earlier and refusing care
--- NOTE | 2023-10-29 17:53 | P.CNPS_ITS ---
History of Present Illness Date of Service: 10/29/23 Chief Complaint: feels unwell fever blurred vision Reason for Consult: Assess capacity Requesting physician: Alex Mejias Discussed with referring provider: No Sources of Information: patient interviewed, chart reviewed and crisis/core team assessment reviewed Additional Sources of Information: Earnest Schofield, nurse bilingual case manager HPI Narrative: Patient is an 88-year-old woman, who lives alone, history of chronic hip pain treated with fentanyl patches, chronic, microvascular ischemic changes, who presents to the emergency department after she walked to [facility] staff there who knew her thought she seemed confused. In the ED patient found to have several fentanyl patches on her at the time which she could not explain to staff; found to be with UTI and started on antibiotic treatment. On approach, patient currently sleeping did not easily awake and at this time underwriter solicitation director thought best to let her sleep (as she's recovering from UTI). Discussed case in detail with nursing bilingual case manager Earnest Schofield who has worked with patient in the past and reports that patient continues to live alone, eats and drinks, attends to most ADLs and has been able to function independently in the community without any dangerousness to self. She has a an apartment intermodal customer service who comes to the house several times a week to help with various chores; she has meals on wheels that deliver food; she has a home health aide that comes and helps her shop; she also has another helping service that comes and deep cleans the apartment when patient incontinent. Patient also has some services from [facility]. She has thus far been resistant to getting more help and has in the past refused a VNA. In the ED she did yell and scream on 1 night asking for help. Otherwise nursing bilingual case manager reports that patient is fully oriented to self, time, place; she has some limited insight into the fact that she is needs more help than she has allowing, but does not seem to accept that she has moments of confusion or any cognitive dysfunction. At this time it is unclear why patient has numerous fentanyl patches on her; either she forgets to take them off and puts new ones on or she forgets she put 1 on it puts on additional ones. Patient capacity was recently assessed by Jojo Perez APRN assessed on 09/08/23 who reports pt has capacity to make decison about health care at this time;she does need help with daily functioning. Past Psychiatric History: pt denies The MRI here revealed chronic microvascular ischemic changes and diffuse volume loss Diagnostics Vital Signs (24Hr): Vital Signs - 24 hr 10/28/23 22:10 10/28/23 22:25 10/28/23 22:40 Temperature Pulse Rate 78 80 Respiratory Rate 20 18 18 Blood Pressure Pulse Oximetry 96 96 Oxygen Delivery Method Room Air Room Air 10/28/23 22:55 10/28/23 23:10 10/29/23 00:00 Temperature 97.7 F Pulse Rate 79 81 84 Respiratory Rate 18 16 22 H Blood Pressure 167/86 H Pulse Oximetry 97 98 98 Oxygen Delivery Method Room Air Room Air Room Air 10/29/23 04:20 10/29/23 04:35 10/29/23 04:50 Temperature Pulse Rate 96 101 H Respiratory Rate 18 19 16 Blood Pressure 156/90 H 146/47 H Pulse Oximetry 96 96 96 Oxygen Delivery Method Room Air Room Air Room Air 10/29/23 05:05 10/29/23 05:20 10/29/23 06:00 Temperature 97.9 F Pulse Rate 106 H 95 85 Respiratory Rate 17 15 16 Blood Pressure 145/68 H Pulse Oximetry 95 97 95 Oxygen Delivery Method Room Air Room Air Room Air 10/29/23 08:40 10/29/23 09:50 10/29/23 10:05 Temperature 98.9 F 97.1 F Pulse Rate 59 89 81 Respiratory Rate 14 16 16 Blood Pressure 124/61 119/81 140/84 H Pulse Oximetry 98 98 99 Oxygen Delivery Method Room Air Room Air Room Air 10/29/23 10:20 10/29/23 11:26 10/29/23 15:18 Temperature Pulse Rate 77 81 102 H Respiratory Rate 16 16 16 Blood Pressure 154/98 H 139/65 144/83 H Pulse Oximetry 98 98 98 Oxygen Delivery Method Room Air Room Air Room Air BMI result Body Mass Index 22.3 Labs 10/28/23 13:58 10/28/23 13:30 Labs: Laboratory Results - last 48 hr 10/28/23 10/28/23 10/28/23 13:30 13:55 13:58 WBC 8.8 RBC 3.89 L Hgb 10.8 L Hct 33.6 L MCV 86.4 MCH 27.8 MCHC 32.1 RDW 19.2 H Plt Count 185 MPV 11.8 Immature Gran % (Auto) 0.3 Neut % (Auto) 62.3 Lymph % (Auto) 22.0 Early % (Auto) 12.1 H Eos % (Auto) 2.4 Baso % (Auto) 0.9 Lymph # (Auto) 1.9 Early # (Auto) 1.1 Eos # (Auto) 0.2 Baso # (Auto) 0.1 Abs Immat Gran (auto) 0.03 Absolute Neuts (auto) 5.5 Absolute Nucleated RBC 0.000 Nucleated RBC % (auto) 0.0 Sodium 141 Potassium 3.3 Chloride 111 H Carbon Dioxide 21 L Anion Gap 12 BUN 13 Creatinine 0.89 Estim Creat Clear Calc 38.4 Estimated GFR 60 POC Glucose Random Glucose 94 Calcium 8.8 D Magnesium 1.5 L Total Bilirubin 0.5 Direct Bilirubin 0.1 AST 11 ALT 6 Alkaline Phosphatase 55 Total Protein 5.9 L Albumin 3.7 Urine Color Yellow Urine Appearance Hazy Urine pH 5.5 Ur Specific Reading 1.025 Urine Protein Trace Urine Glucose (UA) Negative Urine Ketones Negative Urine Blood Trace Urine Nitrite Positive H Ur Leukocyte Esterase Small (1+) H Urine RBC 0-2 Urine WBC 11-20 H Ur Squamous Epith Cells 6-10 Urine Bacteria 4+ Hyaline Casts 0-2 Urine Opiates Screen Not Detected Ur Buprenorphine Scrn Not Detected Ur Oxycodone Screen Not Detected Urine Methadone Screen Not Detected Urine Fentanyl Screen POSITIVE H Ur Barbiturates Screen Not Detected Ur Phencyclidine Scrn Not Detected Ur Amphetamines Screen Not Detected U Benzodiazepines Scrn Not Detected Urine Cocaine Screen Not Detected U Marijuana (THC) Screen Not Detected 10/28/23 14:12 WBC RBC Hgb Hct MCV MCH MCHC RDW Plt Count MPV Immature Gran % (Auto) Neut % (Auto) Lymph % (Auto) Early % (Auto) Eos % (Auto) Baso % (Auto) Lymph # (Auto) Early # (Auto) Eos # (Auto) Baso # (Auto) Abs Immat Gran (auto) Absolute Neuts (auto) Absolute Nucleated RBC Nucleated RBC % (auto) Sodium Potassium Chloride Carbon Dioxide Anion Gap BUN Creatinine Estim Creat Clear Calc Estimated GFR POC Glucose 88 Random Glucose Calcium Magnesium Total Bilirubin Direct Bilirubin AST ALT Alkaline Phosphatase Total Protein Albumin Urine Color Urine Appearance Urine pH Ur Specific Reading Urine Protein Urine Glucose (UA) Urine Ketones Urine Blood Urine Nitrite Ur Leukocyte Esterase Urine RBC Urine WBC Ur Squamous Epith Cells Urine Bacteria Hyaline Casts Urine Opiates Screen Ur Buprenorphine Scrn Ur Oxycodone Screen Urine Methadone Screen Urine Fentanyl Screen Ur Barbiturates Screen Ur Phencyclidine Scrn Ur Amphetamines Screen U Benzodiazepines Scrn Urine Cocaine Screen U Marijuana (THC) Screen Mental Status Exam Mental Status Exam Narrative: pt sleeping Medications Medications Current Medications Cefuroxime Axetil (Cefuroxime Axetil 250 Mg Tablet) 250 mg PO BID BALTAZAR Stop: 11/05/23 01:09 Last Admin: 10/29/23 11:31 Dose: 250 mg Allergies Allergies Allergy/AdvReac Type Severity Reaction Status Date / Time No Known Allergies Allergy Verified 10/28/23 12:53 Assessment & Plan Assessment & Plan (1) Cognitive and behavioral changes: Status: Acute Code(s): R41.89 - Other symptoms and signs involving cognitive functions and awareness; R46.89 - Other symptoms and signs involving appearance and behavior (2) UTI (urinary tract infection): Status: Acute Code(s): N39.0 - Urinary tract infection, site not specified Plan HPI: Patient is an 88-year-old woman, who lives alone, history of chronic hip pain treated with fentanyl patches, chronic, microvascular ischemic changes, who presents to the emergency department after she walked to [facility] staff there who knew her thought she seemed confused. In the ED patient found to have several fentanyl patches on her at the time which she could not explain to staff; found to be with UTI and started on antibiotic treatment. On approach, patient currently sleeping did not easily awake and at this time underwriter solicitation director thought best to let her sleep (as she's recovering from UTI). Discussed case in detail with nursing bilingual case manager Earnest Schofield who has worked with patient in the past and reports that patient continues to live alone, eats and drinks, attends to most ADLs and has been able to function independently in the community without any dangerousness to self. She has a an apartment intermodal customer service who comes to the house several times a week to help with various chores; she has meals on wheels that deliver food; she has a home health aide that comes and helps her shop; she also has another helping service that comes and deep cleans the apartment when patient incontinent. Patient also has some services from [facility]. She has thus far been resistant to getting more help and has in the past refused a VNA. In the ED she did yell and scream on 1 night asking for help. Otherwise nursing bilingual case manager reports that patient is fully oriented to self, time, place; she has some limited insight into the fact that she is needs more help than she has allowing, but does not seem to accept that she has moments of confusion or any cognitive dysfunction. At this time it is unclear why patient has numerous fentanyl patches on her; either she forgets to take them off and puts new ones on or she forgets she put 1 on it puts on additional ones. Recently, patients capacity was assessed by Jojo Perez APRN assessed on 09/08/23 who reports pt has capacity to make decison about health care at this time;she does need help with daily functioning. Impression/Clinical reasoning: At this time patient was not able to participate in interview. However discussed case at length with nursing bilingual case manager Mary Schofield who knows patient. The consult to assess for capacity is vague. At this time underwriter solicitation director can not testify she is fully unable to live independently and care for herself in the community; ANITA Hernandez agrees. Thus far, it seems that patient has capacity to make a number of decisions for herself; she has continued to demonstrate her ability live independently, on her own with the assistance of community resources, and has no history of dangerousness to self or others. 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 The fact that she has multiple fentanyl patches on her body demonstrates the presence of some amount of cognitive dysfunction. And while she retains capacity some areas, it is underwriter solicitation director's opinion that patient lacks capacity and other areas, i.e. making medical decisions as it is apparent she needs more help than she realizes. In order to remain safe in the community, patient needs a VNA (that she has refused in the past) who can safely deliver and administer fentanyl patches. At this time, underwriter solicitation director finds that patient lacks capacity to make medical decisions for herself and for this reason underwriter solicitation director INVOKES patients healthcare proxy, patient's friend Cathy Lazaro. At some point, perhaps as UTI clears, patient may regain capacity. This can be re- evaluated as patient progresses. At this time however for her safety HCP remains involved INVOKE HCP Total time managing care of this patient today ____ minutes.
--- NOTE | 2023-10-29 19:34 | PC.NURSE ---
assumed care of the pt at 1915. pt resting on stretcher, continuously yelling out help! 1:1 sitter at bedside. plan of care ongoing.
--- NOTE | 2023-10-29 19:37 | MHC.EDTECH ---
this tech began 1:1 observation of the pt at 19:05. Pt found incontinent of urine. Pt cleaned, linens changed with VIJAY Bates. Pt combative, agitated, and confused.
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
--- NOTE | 2023-10-29 21:33 | PC.NURSE ---
Tech attempted to feed patient dinner however pt continuously throwing food at the tech.
--- NOTE | 2023-10-29 22:46 | PC.NURSE ---
late admin for abx as pt is finally asleep, comfortable on stretcher, respirations even and unlabored. 1:1 sitter at bedside
[2023-10-30] VITALS (8 sets, daily range): BP systolic 95–113; BP diastolic 52–67; PULSE 61–98; RESP 14–19; TEMP 36.4–37; O2SAT 92–99
[2023-10-30] MEDS: cefuroxime axetiL 250 MG TABLET PO ×2 (09:16→20:15)
--- NOTE | 2023-10-30 09:33 | PHA.MEDREC ---
Pharmacy Consult ? Medication Reconciliation Pharmacy has completed the medication reconciliation. Spoke to pt at bedside, she confirmed that all she takes is her fentanyl patches, 3 patches every 3 days. Despite past claim history she said she does not take any pills or eyedrops. Did not endorse taking an albuterol inhaler, atorvastatin, duloxetine, esomeprazole, or ketorolac eyedrops.
--- NOTE | 2023-10-30 13:15 | PC.NURSE ---
Report given to Marilin schroeder RN, patient to be transported over to overflow once room clean.
[2023-10-30] MEDS: OLANZapine ODT 10 MG TAB.RAPDIS TRANSLINGU (15:34)
--- NOTE | 2023-10-30 15:58 | PC.NURSE ---
pt came over from main ED and I assumed care of this patient at approx 1400. pt was sleeping at the time- fall precautions/bed alarm as well as camera in tact, as pt woke she became increasingly agitated and screaming. pt was mad because there was no TV available for her to watch in bed 5, to help with this situation this nurse moved patient over to bed 3 where there was a tv available, pt then became fixated on wanting coffee and screaming for coffee and food. pt was offered food which she stated wasnt good enough, pt also had coffee and when she finished it she wanted more and became agitated when we told her there wasnt any currently available- the kitchen was called for some more. Pt then began screaming for help and jumping up out of bed to use bathroom, pt was ambulated with assist to the bathroom and back to her bed. pt was medicated with prn zyprexa and this nurse spoke with provider as patients agitation is elevating, sitter was ordered and obtained.
[2023-10-30] MEDS: OLANZapine 10 MG VIAL 5 MG IM (16:28)
--- NOTE | 2023-10-30 16:33 | MHC.CM.ED ---
CM called and spoke with RN at [facility] in [place] regarding this patient and her missed appointment yesterday due to being in the ED. Pt was to have medical clearance appointment for cataract surgery. Per RN, patient has missed appointments, and they have had concerns about her ability to safely care for herself at home. Pt has had multiple fentanyl patches on in the past. They will make note in her chart regarding this ED visit and need to remain due to delirium from a UTI. RN will message her PCP Dr. Abbe Galeana.
--- NOTE | 2023-10-30 16:38 | MHC.CM.ED ---
Pt continues to yell and scream for help. Wants to go home. Has no safety awareness and no understanding of her current medical situation. Denies having delirium from her UTI or dementia. Cannot be re-directed, despite CM and 2 RN attempts to do so. RN to medicate patient with IM injection.
[2023-10-30] MEDS: QUEtiapine Fumarate 25 MG TABLET PO (22:50)
--- NOTE | 2023-10-31 00:36 | PC.NURSE ---
Pt sleeping at the bedside. No apparent distress noted. Breaths are even regular and unlabored with equal chest rises. Monitoring is ongoing.
[2023-10-31 05:56] VITALS: BP 106/62; PULSE 81; RESP 17; TEMP 36.6; O2SAT 97
--- NOTE | 2023-10-31 11:23 | MHC.CM.ED ---
Addendum entered by Zoey Sebastian 10/31/23 16:09: Shelly Hernandez CM director aware. Original Note: Patient remains in ER. IM zyprexa given on 10/29. Will not be able to find SNF placement until patient has been sitter free and IM med free for at least 48 hours. Continue to monitor for d/c needs.
[2023-10-31] MEDS: OLANZapine ODT 10 MG TAB.RAPDIS TRANSLINGU (15:23)
[2023-10-31] MEDS: cefuroxime axetiL 250 MG TABLET PO ×2 (15:23→21:41)
[2023-10-31 16:50] VITALS: BP 116/62; PULSE 90; RESP 20; O2SAT 99
[2023-10-31] MEDS: Ondansetron ODT 4 MG TAB.RAPDIS TRANSLINGU (19:15)
[2023-10-31 20:49] VITALS: RESP 16
--- NOTE | 2023-10-31 23:11 | PC.NURSE ---
delay on Zyprexa as we do not have the med in overflow, messaged charge to bring it over from main ED
[2023-10-31] MEDS: OLANZapine 7.5 MG TABLET PO (23:28)
[2023-11-01 06:38] VITALS: BP 136/76; PULSE 82; RESP 16; TEMP 37.7; O2SAT 96
--- NOTE | 2023-11-01 08:22 | MHC.CM.ED ---
Addendum entered by Gabriela Bach 11/01/23 14:25: No response from [facility] regarding acceptance. Review of EMR does not indicate pt had a Medicare qualifying stay for STR. Pt may need to access her [facility] benefit for placement. In addition, pt has not had a PT eval for STR needs. Will discuss w/ED provider. Message left for pt's activated HCP, Cathy inquiring on extending the STR search (which has been done) ED CM to await offers. Original Note: Review of notes, meds and clinical data do not show IM medication administration or sitter. Pt getting po meds and has a video monitor only. Referred to [facility] and presently awaiting response. Will contact pt's activated HCP with updates or requests for more STR choices as needed. ED CM to follow
[2023-11-01] MEDS: Ibuprofen 600 MG TABLET PO (09:27)
[2023-11-01] MEDS: cefuroxime axetiL 250 MG TABLET PO ×2 (12:47→22:19)
--- NOTE | 2023-11-01 14:54 | MHC.EDTECH ---
Patient refused vitals at this time.
[2023-11-01 16:04] VITALS: BP 103/49; PULSE 101; RESP 16; TEMP 37.3; O2SAT 99
--- NOTE | 2023-11-01 16:10 | MHC.EDTECH ---
This pct assumed care of Pt at 1500 ,patient awake watching television ,Pt was reposition and boosted up in bed .vitals taken .Patient had sips of joe aristides .
[2023-11-01] MEDS: Acetaminophen 325 MG TABLET 975 MG PO (16:44)
--- NOTE | 2023-11-01 18:00 | MHC.EDTECH ---
Patient was set up for dinner ate 50 % of meal and drank 120 ml fluids .
[2023-11-01] MEDS: fentaNYL 12 MCG PATCH.TD72 TRANSDERMA (18:33)
[2023-11-01] MEDS: fentaNYL 25 MCG PATCH.TD72 TRANSDERMA (18:33)
--- NOTE | 2023-11-01 18:40 | PC.NURSE ---
Fentanyl patch placed to R upper chest, old patched found on the L upper chest was removed.
[2023-11-01 20:15] VITALS: BP 121/68; PULSE 97; RESP 16; TEMP 36.8; O2SAT 96
--- NOTE | 2023-11-01 20:16 | MHC.EDTECH ---
Patient was assisted to walk with walker and 1 person to bathroom ,Pt void care given and back to bed ,vitals taken ,Pt now watching television ,Plan of care continue .
[2023-11-01] MEDS: Omeprazole 20 MG CAPSULE.DR PO (20:46)
--- NOTE | 2023-11-02 00:08 | PC.NURSE ---
vp digital marketing social media and crm delayed, pt resting quietly with eyes closed, will wait until pt wakes on her own to prevent agitation during vp digital marketing social media and crm
[2023-11-02] MEDS: Melatonin 3 MG TABLET PO (00:53)
[2023-11-02] MEDS: Acetaminophen 325 MG TABLET 975 MG PO ×2 (00:54→23:50)
--- NOTE | 2023-11-02 01:08 | MHC.EDTECH ---
Patient awake asked to bathroom ,was assisted to walk ,Pt void and was assisted by to bed .
--- NOTE | 2023-11-02 06:23 | PC.NURSE ---
pt resting comfortably throughout the night, no apparent distress noted, breathing even and unlabored with eyes closed. call bruno w/in reach
[2023-11-02 06:41] VITALS: BP 113/57; PULSE 76; RESP 16; TEMP 36.6; O2SAT 95
--- NOTE | 2023-11-02 12:50 | PC.NURSE ---
continues to rest quietly in room, respirations even and unlabored.
--- NOTE | 2023-11-02 14:13 | MHC.CM.ED ---
Pt holding in ED OF waiting for STR placement with likely LTC transition: PT eval supports STR: eval uploaded for SNF referrals. Several facilities requesting last SNF admission dates: pt not reliable and HCP Cathy unsure but feels it was September 2023. Some referrals have responded with no bed availabilty: still waiting for 2 to respond. PLAN: confirm last SNF dates: may need to refer further out if no local offers are extended.
--- NOTE | 2023-11-02 15:12 | PC.NURSE ---
Addendum entered by Micki Cantrell 11/02/23 15:52: continuously asking for someone to talk to in regards to her discharge and leaving today. made aware that she will most likely not be leaving today, continues to ask to speak with someone in regards to leaving as she has been here for too long. Original Note: patient awake ambulated with one assist using walker to the bathroom
[2023-11-02] MEDS: Ondansetron ODT 4 MG TAB.RAPDIS TRANSLINGU (18:16)
[2023-11-02] MEDS: OLANZapine ODT 10 MG TAB.RAPDIS TRANSLINGU (18:21)
--- NOTE | 2023-11-02 18:22 | PC.NURSE ---
patient agitated in the room, complaining of nausea - medicated per the MAR. states that zofran does not help. yelling out help constantly in the room. medicated with prn agitation medication which patient took willingly.
[2023-11-02] MEDS: diphenhydrAMINE HCL 25 MG CAPSULE 50 MG PO (20:57)
[2023-11-02 20:59] VITALS: BP 107/56; PULSE 84; RESP 18; TEMP 37.3; O2SAT 97
--- NOTE | 2023-11-02 21:00 | PC.NURSE ---
PT assisted to the br, pt amb slowly and steadily with a walker, with standby assist. Pt requested something for sleep, new orders received. Pt medicated as ordered.
--- NOTE | 2023-11-02 22:12 | PC.NURSE ---
pt slept for awhile, now she is awake and stating that she did not sleep, and asking for something for sleep
[2023-11-02] MEDS: cefuroxime axetiL 250 MG TABLET PO (22:36)
--- NOTE | 2023-11-02 22:40 | PC.NURSE ---
pt yelling at nurse, calling the nurse hateful and rotten. Pt yelling out for help, but willl not let this nurse help her. pt wants more sleeping med, but refuses to close her eyes and try to sleep. No S/S of acute distress, resp with ease.
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
[2023-11-02] MEDS: QUEtiapine Fumarate 50 MG TABLET PO (23:50)
--- NOTE | 2023-11-03 00:07 | PC.NURSE ---
pt medicated withseroquel po. Pt is quietly taking to Makayla TORIBIO, who is sitting at her bedside.
--- NOTE | 2023-11-03 00:43 | PC.NURSE ---
pt is quietly, watching tv at this time, not yelling, no s/s of any acute distress, resp with ease, cont plan of care
--- NOTE | 2023-11-03 01:29 | MHC.EDTECH ---
Patient was ambulated to bathroom with 1 asst ,pt void and was ambulated back to bed ,Pt having some saltines crackers and watching the news ,at this time Pt is calm and Cooperative ,Plan of care continue .
[2023-11-03 06:37] VITALS: BP 134/61; PULSE 64; RESP 16; TEMP 36.8; O2SAT 96
--- NOTE | 2023-11-03 06:37 | PC.NURSE ---
pt is resting quietly on the bed at this time, resp with ease, no s/s of acute distress, will cont plan of care
--- NOTE | 2023-11-03 06:40 | MHC.EDTECH ---
Patient awake ,vitals taken ,was assisted to b/r void and back to bed .
--- NOTE | 2023-11-03 07:13 | PC.NURSE ---
report ashia Pope RN
[2023-11-03] MEDS: Acetaminophen 325 MG TABLET 975 MG PO ×2 (08:34→16:32)
--- NOTE | 2023-11-03 09:39 | MHC.CM.ED ---
Addendum entered by Zoey Sebastian 11/03/23 16:01: Received verification from Aubree that patient was under observation 09/28-09/29. Was not inpatient. [facility] is unable to offer a bed. Addendum entered by Zoey Sebastian 11/03/23 13:23: [facility] and [facility] are not able to offer a bed. [facility] and [facility] are still reviewing. Addendum entered by Zoey Sebastian 11/03/23 09:57: [facility] does not have a bed available. Original Note: Patient remains in ER overflow. Call placed to [facility] to see if they have a bed available. Waiting for return telephone call. Clinical updates [facility], [facility]. Continue to monitor for d/c needs.
--- NOTE | 2023-11-03 12:26 | PC.NURSE ---
Pt with fentanyl patch 25mcg and 12 mcg patch both well secured under same tegaderm on R anterior shoulder/chest. verified with RN Christine Powell.
--- NOTE | 2023-11-03 12:30 | PC.NURSE ---
Report taken from Toshia TORIBIO, assumed care of pt at this time. Resting in bed, skin pwd respirations even unlabored. Lunch offered, pt only eating chips and drinking gingerale. Fentanyl patches remain in place to right chest. Plan for STR, awaiting placement.
[2023-11-03 14:26] VITALS: BP 165/70; PULSE 61; RESP 17; TEMP 37.5; O2SAT 99
--- NOTE | 2023-11-03 15:08 | PC.NURSE ---
Pt complaining of nausea and heartburn requesting med, provider notified awaiting new med order.
[2023-11-03] MEDS: Omeprazole 20 MG CAPSULE.DR PO (15:20)
[2023-11-03] MEDS: ondansetron HCL 4 MG/2 ML VIAL IVPUSH (15:20)
--- NOTE | 2023-11-03 15:23 | PC.NURSE ---
Pt medicated per MAR, awaiting improvement in symptoms.
[2023-11-03] MEDS: OLANZapine ODT 10 MG TAB.RAPDIS TRANSLINGU (16:58)
--- NOTE | 2023-11-03 17:04 | PC.NURSE ---
Pt agitated yelling out Help, help, help incessantly. Requesting something to help her sleep. Medicated with PRN per MAR. Dinner tray provided, pt states I'm not going to eat pushing tray away. Tray kept in pt reach in case she changes mind.
--- NOTE | 2023-11-03 17:33 | PC.NURSE ---
Pt resting eyes closed, skin pwd, respirations even unlabored.
--- NOTE | 2023-11-03 19:08 | PC.NURSE ---
received report from Christine TORIBIO, assume care of pt at this time. pt is lying in bed, yelling for help, whenever, someone is not by her bedside. Cont plan of care
--- NOTE | 2023-11-03 21:18 | PC.NURSE ---
pt asking for something for her acid reflux, explained to pt, that she had something earlier and it was a once a day medicine. Offer pt some milk, and she refused. Informed pt, I would check with the doctor and get her something.
[2023-11-03 22:00] VITALS: BP 93/64; PULSE 74; RESP 16; TEMP 37.4; O2SAT 95
--- NOTE | 2023-11-03 22:56 | PC.NURSE ---
pt is resting quietly, with eyes closed, resp at east, at this time
--- NOTE | 2023-11-03 23:29 | PC.NURSE ---
report given ot oncoming nurse at 2300, all questions answered
[2023-11-03] MEDS: cefuroxime axetiL 250 MG TABLET PO (23:56)
[2023-11-04] MEDS: Acetaminophen 325 MG TABLET 975 MG PO ×3 (02:14→21:08)
[2023-11-04 06:25] VITALS: BP 102/63; PULSE 94; RESP 16; TEMP 37.3; O2SAT 94
[2023-11-04] MEDS: cefuroxime axetiL 250 MG TABLET PO ×2 (10:10→22:59)
--- NOTE | 2023-11-04 10:49 | PC.NURSE ---
assumed care of pt at 0700, pt resting quietly, reporting acid reflux, medicated per MAR. messaged PA at pt request for a PRN order for Tums. pt expressing anxiety at missing surgery schedule 11/12 for cataract repair. pt stated that she has an envelope on her kitchen table with paperwork that needs to get mailed for the surgery. case management notified. pt declined breakfast, no needs at this time.
--- NOTE | 2023-11-04 12:06 | MHC.CM.ED ---
Addendum entered by Zoey Sebastian 11/04/23 14:09: [facility] updated. Original Note: Patient remains in ER overflow. Referral broadcasted within 25 miles. Waiting to hear about bed availability. Patient's friend/HCP, Cathy made aware via telephone. Continue to monitor for d/c needs.
[2023-11-04 16:00] VITALS: BP 92/49; PULSE 88; RESP 20; TEMP 37.4; O2SAT 99
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
--- NOTE | 2023-11-04 18:33 | PC.NURSE ---
pt redirectable after visit from Case Management staff. calmed by discussion regarding psych consult in am to determine capacity. pt expressed that she is frustrated that Cathy is making decisions for her because she isn't family and has no legal right. pt focused on how she can get out of here. pt calling family members to explain situation to see if anyone else can assist her legally. pt asking RN how she can prove she can home. explained to pt that outburst are not helping to show that she is able to make decisions for herself - emphasised that pt hasn't been eating meals and participating in ADLs. suggested that pt focus on demonstrating ability to perform self care tasks and work on emotion control. pt agreeable to plan and ate 75% of dinner. pt calm and cooperative w plan of care at this time.
[2023-11-04 19:11] VITALS: BP 140/68; PULSE 103; RESP 16; TEMP 36.7; O2SAT 96
--- NOTE | 2023-11-04 19:45 | PC.NURSE ---
Assumed care of pt. Pt lying on stretcher, no acute distress at this time. Preparing for night med administration and educated pt on plan of care.
--- NOTE | 2023-11-04 20:11 | PC.NURSE ---
This RN reviewed med Rec with Pharmacy and Corrina Teague, and determined pt should remain on Q3day Fentanyl patches. Home dosing unavailable, so approximate dosing to be ordered. Of note, the pain reevaluation for the existing Fetanyl patches cannot be completed d/t a fault in the JUN. pt currently endorsing no pain; however pain to be reassessed prior to next dosing of patches.
[2023-11-04] MEDS: fentaNYL 25 MCG PATCH.TD72 TRANSDERMA (21:08)
[2023-11-04] MEDS: fentaNYL 12 MCG PATCH.TD72 TRANSDERMA (21:08)
[2023-11-04] MEDS: OLANZapine ODT 10 MG TAB.RAPDIS TRANSLINGU (21:08)
[2023-11-05 06:00] VITALS: BP 102/47; PULSE 87; RESP 16; TEMP 36.9; O2SAT 97
[2023-11-05] MEDS: cefuroxime axetiL 250 MG TABLET PO ×2 (11:35→21:50)
[2023-11-05 14:18] VITALS: BP 89/51; PULSE 88; RESP 16; TEMP 37.4; O2SAT 95
[2023-11-05 14:45] VITALS: BP 125/62
[2023-11-05] MEDS: Acetaminophen 325 MG TABLET 975 MG PO (15:57)
[2023-11-05 21:52] VITALS: BP 99/61; PULSE 80; RESP 16; TEMP 36.6; O2SAT 94
[2023-11-05 23:45] VITALS: BP 100/52; PULSE 80
[2023-11-05] MEDS: OLANZapine ODT 10 MG TAB.RAPDIS TRANSLINGU (23:48)
[2023-11-06 01:20] VITALS: RESP 16
[2023-11-06 06:00] VITALS: BP 128/69; PULSE 86; RESP 18; TEMP 36.8; O2SAT 97
[2023-11-06] MEDS: Acetaminophen 325 MG TABLET 975 MG PO ×3 (08:34→20:39)
--- NOTE | 2023-11-06 08:37 | PC.NURSE ---
this RN resumed care of pt at 0645. alert and oriented x 3. unaware on why she's here. pt reporting, i don't know why i'm here and that's why i'm so angry all the time. pt educated on why she currently resides in overflow unit at this time. pt medicated per provider order. pt refusing breakfast at this time stating, i'm not hungry, get it away from me. breakfast tray placed bedside for convenience if she changes her mind. pt resting comfortably in no apparent distress w/ eyes closed. no sob/wob noted. respirations even/unlabored. bed alarm turned on for safety precautions. plan of care ongoing. call bruno placed within reach.
[2023-11-06] MEDS: cefuroxime axetiL 250 MG TABLET PO ×2 (10:07→23:02)
--- NOTE | 2023-11-06 10:08 | PC.NURSE ---
abx administered per provider order.
--- NOTE | 2023-11-06 15:09 | PC.NURSE ---
pt ambulated to the restroom w/ a strong steady gait w/ the use of a walker. no difficulties noted. UA obtained/sent to lab. fresh linen/pads applied to pt's bed. pt now resting in bed in no apparent distress. respirations remain even/unlabored. bed alarm turned on for safety precautions. plan of care ongoing.
[2023-11-06 15:10] VITALS: BP 119/63; PULSE 78; RESP 16; TEMP 37.2; O2SAT 95
[2023-11-06 15:15] LABS: Appearance Urine Cloudy; Color Urine Yellow; Glucose Urine UA Negative (Negative); Leukocyte Esterase Urine Large (3+) (Negative); Nitrite Urine Negative (Negative); UMIC TRIGGER UACC YES; Urine Blood Trace (Negative); Urine Ketones Negative (Negative); Urine Protein Negative (Neg-Trace)
[2023-11-06 15:27] LABS: Bacteria Urine 2+ (None Seen); Hyaline Casts Urine 0-2 /LPF (0-2); RBC Urine 0-2 /HPF (0-2); Squamous Epithelial Cell Urine 0-2 /HPF (0-2); UACC Culture Trigger YES; WBC Urine 21-50 /HPF (0-5)
--- NOTE | 2023-11-06 15:58 | PC.NURSE ---
Addendum entered by Annia George 11/06/23 18:40: *strong steady gait Original Note: pt ambulating around overflow unit w/ stony steady gait. walker being utilized. medication administered per provider order.
[2023-11-06] MEDS: OLANZapine ODT 10 MG TAB.RAPDIS TRANSLINGU (17:40)
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
--- NOTE | 2023-11-06 17:54 | PC.NURSE ---
analysis or research safety inspector notified/aware of pt's behavior. this physician underwriter is requesting a sitter for pt's inappropriate behavior at this time. 1:1 sitter pending. safety precautions in place.
--- NOTE | 2023-11-06 18:24 | PC.NURSE ---
1:1 sitter now present.
--- NOTE | 2023-11-06 18:40 | MHC.CM.ED ---
CM present when patient was yelling for help. Sitter at bedside. CM spoke with patient in a firm voice, explaining why patient is here, that she is not acting like she can care for herself, and that staff at [facility], Her PCP, [facility] and her HCP/friend Cathy all have concerns about her ability to care for herself. Pt states we are all wrong, that she has no friends and when she gets out of hospital, she will sheila. CM explained that psych has ordered an ACL test to determine her ability to care for herself at home. Pt was encouraged to have appropriate behaviors and that she does not have to yell and scream. Explained that those behaviors do not help her.. Pt is calm and not yelling, but states she will no longer speak to CM
--- NOTE | 2023-11-06 18:46 | PC.NURSE ---
pt currently asleep/resting in no apparent distress s/p medication administration. 1:1 sitter/camera/bed alarm in place for safety precautions. call bruno placed within reach.
[2023-11-06 19:20] VITALS: BP 106/55; PULSE 80; RESP 16; TEMP 37.1; O2SAT 95
--- NOTE | 2023-11-06 21:56 | PC.NURSE ---
Patient occasionally yelling out requesting help . Pt agitated stating I don't want to stay the weekend. I don't need to have another evaluation, I've already had a bunch! I'm not confused! Also repeatedly asking for something to help me sleep and my antacid medication . Was given Zyprexa at 17:40 prior to this RN's shift, confirmed in RN to RN report and EMAR. Pt then stated that If I don't get some help to sleep, then I'm gonna yell and wake everyone up! Pt got into brief verbal arguement with 1:1 sitter, that quickly resolved. Pt called the sitter isaiah . This RN explained that she is exhibiting concerning behaviors and the inability to care for herself or recall events. Denies throwing a walker at staff earlier today. She has been closing her eyes intermittently since this RN's shift began (19:00). Dr. Angulo aware of patient's statements, behaviors, and requests. Care ongoing. 1:1 remains at bedside.
--- NOTE | 2023-11-06 22:41 | PC.NURSE ---
Spoke with pharmacy. Geodon 40mg tablet unavailable in ED Overflow Pyxis. Awaiting pharmacy to bring medication to ED Overflow. Will administer upon receipt.
[2023-11-06] MEDS: Ziprasidone 40 MG CAPSULE PO (23:02)
[2023-11-06 23:56] VITALS: BP 127/62; PULSE 80; RESP 16; TEMP 36.8; O2SAT 98
--- NOTE | 2023-11-07 00:59 | PC.NURSE ---
Pt rummaging through back pack at bedside. Pt counting money, refusing to allow t/w to lock it up. Money counted with pt 7-$20, 1-$10 and 6-$1 bills. Placed back in backpack and tried to redirect pt. Pt concerned about bills that need to be paid and t/w tried to explain the time and that nothing could be done at this time. Pt was agreeable momentarily but trying to go through backpack just a few short minutes later.
[2023-11-07] MEDS: traZODone HCL 50 MG TABLET PO ×2 (01:59→21:20)
[2023-11-07 06:00] VITALS: RESP 16
--- NOTE | 2023-11-07 08:05 | MHC.EDTECH ---
pt given breakfast tray
[2023-11-07] MEDS: Acetaminophen 325 MG TABLET 975 MG PO ×3 (09:06→19:48)
[2023-11-07] MEDS: cefuroxime axetiL 250 MG TABLET PO ×2 (11:55→21:20)
[2023-11-07 14:00] VITALS: BP 107/41; PULSE 85; TEMP 36.6; O2SAT 96
[2023-11-07] MEDS: OLANZapine ODT 10 MG TAB.RAPDIS TRANSLINGU (15:32)
[2023-11-07] MEDS: Melatonin 3 MG TABLET 6 MG PO (19:47)
[2023-11-07 20:00] VITALS: BP 141/66; PULSE 90; RESP 18; TEMP 36.8; O2SAT 97
--- NOTE | 2023-11-07 20:09 | MHC.EDTECH ---
This tech took over care of patient at 1900,hourly rounds and vitals completed,patient ambulated to the bathroom with sitter,patient urinated,patient is eating a snack (Bannana) at this time,sitter at bedside for safety
[2023-11-07] MEDS: fentaNYL 25 MCG PATCH.TD72 TRANSDERMA (20:43)
[2023-11-07] MEDS: fentaNYL 12 MCG PATCH.TD72 TRANSDERMA (20:43)
--- NOTE | 2023-11-07 22:00 | MHC.EDTECH ---
Hourly rounds completed,patient is resting quietly at this time sitter at bedside for safety
--- NOTE | 2023-11-08 06:26 | PC.NURSE ---
Pt AOx3, confused and forgetful at times. She will receive her medication then a few minutes later complain to the sitter she did not receive it. She was asking for medication for depression and for something to help her sleep. Appears she expects the PO medication to work instantly. Educated pt on how PO medication works. Contacted ED PA for melatonin and about 90 minutes later for something else for pt as she was escalting w/her inappropriate behavior. One time trazadone 50mg ordered and administered w/good effect as pt slept for the rest of the night. She ambulates x1 assist w/walker to the bathroom. Fentanyl patches removed and replaced, witnessed by RN customer services supervisor. Call bruno within reach. 1:1 sitter bedside until 2300, d/t staffing no sitter available for overnight but pt in full view of this RN. 1:1 sitter expected for dayshift.
--- NOTE | 2023-11-08 09:29 | PC.NURSE ---
Patient resting comfortably in bed, breathing is even and unlabored. Patient is A x 2 and is forgetful at times, sitter in place. No c/o pain, call bruno within reach and all other needs met a this time.
[2023-11-08] MEDS: cefuroxime axetiL 250 MG TABLET PO ×2 (12:29→22:26)
[2023-11-08 12:53] VITALS: BP 89/53; PULSE 75; RESP 16; TEMP 36.7; O2SAT 95
[2023-11-08 12:59] VITALS: BP 124/76
[2023-11-08] MEDS: Acetaminophen 325 MG TABLET 975 MG PO ×2 (15:47→19:38)
--- NOTE | 2023-11-08 18:14 | PC.NURSE ---
Patient awake and talking with staff, frequently asking for staff to call her sister and to call her apartment building to tell them that she is in the hospital. Patient was able to call sister and leave a message. Patient asking staff the same questions about why she is here and wanting to speak with a doctor to arrange for her to go to [place]. Patient very demanding and will yell at staff if staff does not do what she says. Patient requesting nail clipper and very upset that we do not provide them here.
[2023-11-08 19:29] VITALS: BP 112/62; PULSE 77; RESP 14; TEMP 36.6; O2SAT 99
[2023-11-08] MEDS: OLANZapine ODT 10 MG TAB.RAPDIS TRANSLINGU (22:24)
[2023-11-08] MEDS: traZODone HCL 50 MG TABLET PO (22:57)
--- NOTE | 2023-11-08 23:59 | PC.NURSE ---
Addendum entered by Jerica Gage RN 11/09/23 04:12: ED PA bedside to eval pt. See MAR for new order. Pt verbally abusive to staff, eventually fell asleep. She awoke approx 0400 to be toileted. Pt back to bed, perseverating over why the 1:1 sitter isn't sleeping in one of the empty beds. Original Note: Pt growing increasingly agitated over the course of this RN's shift. Pt given PRN and ED PA tigered for trazadone which worked last night (see MAR for administration). Pt keeps repeating she can't sleep and demanding to be given something to go to sleep, I need sleep right now. Give me an injection to put me out . Reminded pt she has been given 2 pills to help her sleep but she keeps insisting on being given something else. Pt attempting to climb/jump OOB 1:1 sitter, this RN, and corrosion control technician bedside to keep pt safe. She keeps repeating she is in penitentiary and wants to go home. She intermittently screams and will also scream help . Have tigered RN cab supervisor and ED PA again. Staff remain close by to keep pt safe.
--- NOTE | 2023-11-09 07:07 | PC.NURSE ---
report recieved from overnight RN, patient resting comfortably on bed at this time, 1:1 remains at bedside for impulsivity and redirection. no safety concerns at this time
[2023-11-09] MEDS: Acetaminophen 325 MG TABLET 975 MG PO (08:04)
[2023-11-09 08:07] VITALS: BP 92/60; PULSE 82; RESP 16; TEMP 37.1; O2SAT 95
--- NOTE | 2023-11-09 08:19 | PC.NURSE ---
patient provided with breakfast tray, medicated per MAR, patient endorsing sleeping well, cooperative with care at this time. sitter remains at bedside
--- NOTE | 2023-11-09 08:56 | PC.NURSE ---
VB NET DEVELOPER offered to clean patient up, patient refusing at this time, requesting to watch TV, adjusted in bed and TV turned on for patient. all safety maintained
[2023-11-09] MEDS: cefuroxime axetiL 250 MG TABLET PO ×2 (11:16→22:08)
--- NOTE | 2023-11-09 12:00 | PC.NURSE ---
patient remains asleep at this time, provided with lunch tray for when she wakes up. 1:1 sitter remains at bedside all safety maintained
--- NOTE | 2023-11-09 14:05 | PC.NURSE ---
patient ambulatory with steady gait and walker to bathroom with standby assistance from sitter, patient placed back into bed without incident. provided with lunch tray.
--- NOTE | 2023-11-09 14:42 | PC.NURSE ---
patient completed her lunch tray, requesting to be cleaned up now by GIUSEPPE
[2023-11-09 14:45] VITALS: BP 94/56; PULSE 76; RESP 14; TEMP 37.3; O2SAT 98
--- NOTE | 2023-11-09 15:24 | PC.NURSE ---
patient cleaned up in bed by ENTRY LEVEL MECHANICAL ENGINEER, patient continues to be calm, cooperative and respectful to staff at this time
--- NOTE | 2023-11-09 16:40 | PC.NURSE ---
patient provided with dinner tray
--- NOTE | 2023-11-09 19:24 | PC.NURSE ---
at 1855 received report from off going nurse, Cathleen Santiago RN
[2023-11-09 20:00] VITALS: BP 103/57; PULSE 81; RESP 14; TEMP 37.3; O2SAT 98
--- NOTE | 2023-11-09 21:00 | PC.NURSE ---
pt resting quietly, with eyes closed,resp with ease, no s/s of acute distress. Pt will ask for help, when she needs something, but she is not yelling and screaming for help, will cont plan of care
[2023-11-09] MEDS: OLANZapine ODT 10 MG TAB.RAPDIS TRANSLINGU (21:26)
[2023-11-09 22:00] VITALS: BP 96/57; PULSE 79; RESP 14; TEMP 37.3; O2SAT 96
--- NOTE | 2023-11-09 22:16 | PC.NURSE ---
at 2129, pt was getting agitated, keep asking for medicine, pt medicated, with zyprea, will cont paln of care
--- NOTE | 2023-11-09 23:00 | PC.NURSE ---
report given to Stepan TORIBIO
[2023-11-09] MEDS: QUEtiapine Fumarate 50 MG TABLET PO (23:18)
--- NOTE | 2023-11-10 00:01 | PC.NURSE ---
Assumed care of pt approx 1045. When this RN walked onto unit, pt agitated, yelling out for help, then screaming, GIUSEPPE and sitter bedside attempting to help pt and attend to her needs. She was rude and manipulative to staff. Tigered ED PA for prn (see MAR for administration). Pt settled, ate half a sandwich and then asked to be taken to the bathroom. Call bruno within reach. Camera on. GIUSEPPE Vaughn, and this RN within viewing distance of pt for safety.
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
[2023-11-10] MEDS: Ziprasidone Mesylate 20 MG VIAL IM (01:30)
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
--- NOTE | 2023-11-10 06:06 | MHC.EDTECH ---
0600 rounding done Patient up to bed side commode ,void and was assisted back to bed ,Pt slept for about 1 hour ,call bruno within Pt reach .
--- NOTE | 2023-11-10 06:21 | PC.NURSE ---
Pt continued to sleep off and on from approx 0200 - this note writing. She remains impulsive, manipulative and insulting to nursing staff while attempting to provide her w/care and to keep her safe. Bedside commode utilized 2x. Call bruno within reach, camera on. 1:1 sitter not provided d/t staffing from 0300- 0700. Did smooth nursing supervisor powder and primer canning and requested a 1:1 sitter d/t pt being impulsive.
--- NOTE | 2023-11-10 07:52 | MHC.EDTECH ---
patient woke up to use the commode. patient back in bed eating breakfast at this time.
[2023-11-10] MEDS: Acetaminophen 325 MG TABLET 975 MG PO ×2 (08:17→21:18)
--- NOTE | 2023-11-10 08:27 | PC.NURSE ---
Calm and cooperative, ate well for breakfast. Denies pain or discomfort. Sitting up in bed watching t.v
[2023-11-10] MEDS: cefuroxime axetiL 250 MG TABLET PO (11:37)
--- NOTE | 2023-11-10 11:53 | MHC.EDTECH ---
patient resting at this time. lunch is at bedside.
--- NOTE | 2023-11-10 12:02 | MHC.CM.ED ---
Patient remains in ER overflow. Still waiting for ACL to be performed. Received telephone call from patient's friend/HCP, Cathy. Patient scheduled to have cataract surgery on 11/12. T/W spoke with Bridgett at [facility] via telephone at [phone] ext [phone]. Explained surgery would have to be rescheduled due to being in ER. Bridgett stated surgery was going to have to be rescheduled because patient did not go to PCP appointment for pre-surgery clearance. Continue to monitor for d/c needs.
--- NOTE | 2023-11-10 13:02 | PC.NURSE ---
Resting quietly with eyes closed, breathing even and unlabored
--- NOTE | 2023-11-10 16:00 | MHC.EDTECH ---
patient woke up and walked to the bathroom with a walker and a standby assist. patients linen and Yobani was changed.
[2023-11-10] MEDS: OLANZapine ODT 10 MG TAB.RAPDIS TRANSLINGU (17:52)
[2023-11-10 18:22] VITALS: BP 112/58; PULSE 88; RESP 18; TEMP 37.3; O2SAT 98
--- NOTE | 2023-11-10 18:28 | PC.NURSE ---
Patient anxious asking for medical staff to find out about her eye apt on 11/12. Patient re directed for short periods of time. Patient asking to be medicated to help her rest. Medicated per mar with good effect
[2023-11-10] MEDS: Melatonin 3 MG TABLET 6 MG PO (21:18)
[2023-11-10] MEDS: fentaNYL 25 MCG PATCH.TD72 TRANSDERMA (21:47)
--- NOTE | 2023-11-10 22:24 | PC.NURSE ---
unable to locate R-shoulder patch for removal. Pt turned and assessed skin and bed but unable to find. New fentanyl patch date and times placed to L-shoulder/upper back
--- NOTE | 2023-11-10 23:00 | PC.NURSE ---
Assumed care of patient at this time. Patient resting quietly with even respirations in bed. 1:1 sitter at bedside and camera for safety in place.
[2023-11-11] MEDS: Morphine Sulfate Immed Release 15 MG TABLET PO (01:16)
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
[2023-11-11] MEDS: OLANZapine ODT 10 MG TAB.RAPDIS TRANSLINGU (11:49)
[2023-11-11 15:28] VITALS: BP 128/71; PULSE 92; RESP 14; TEMP 37.1; O2SAT 99
--- NOTE | 2023-11-11 16:19 | PC.NURSE ---
Pt A&Ox3, disoriented to situation and day of the week. Pt obsessing over her eye surgery she is supposed to have on November 12. This RN looked back in pt chart and found that the eye surgery did exist but is being rescheduled. Pt reoriented to this many times but cont to obsess. Pt cont yells out for help throughout the day because she wants to go home. Pt agreed to taking PO PRN Zyprexa. OOB with walker to the bathroom, gait steady. Pt did not eat her breakfast but ate approx 40% of her lunch.
--- NOTE | 2023-11-11 19:34 | PC.NURSE ---
This RN assumed pt care @ 1900. Pt resting in bed comfortably, watching tv. Sitter remains Plan of care ongoing.
--- NOTE | 2023-11-11 23:13 | PC.NURSE ---
Pt requesting meds for acid reflux and nausea. Provider Elizabeth notified. No new orders at this time. Plan of care ongoing.
--- NOTE | 2023-11-12 03:16 | PC.NURSE ---
Pt ambulated with walker and sitter to restroom. Plan of care ongoing.
--- NOTE | 2023-11-12 03:19 | PC.NURSE ---
Pt repositioned for comfort in bed by this RN and sitter. Plan of care ongoing.
[2023-11-12 03:56] VITALS: BP 103/79; PULSE 76; RESP 16; TEMP 36.1; O2SAT 95
--- NOTE | 2023-11-12 04:43 | PC.NURSE ---
Dr. Dennis notified and aware that pt is requesting meds for acid reflux. Plan of care ongoing.
--- NOTE | 2023-11-12 04:55 | PC.NURSE ---
Pt yelling help over and over again. This RN and sitter attempted to redirect pt but pt continues to yell. Plan of care ongoing.
--- NOTE | 2023-11-12 06:55 | PC.NURSE ---
Dennis gave this RN a written order for maalox 30cc po x1. Order entered in per providers req. Plan of care ongoing.
[2023-11-12 07:25] VITALS: BP 102/66; PULSE 87; RESP 16; TEMP 37.3; O2SAT 98
[2023-11-12] MEDS: Magnesium Hydrox/Alum Hydrox 30 ML ORAL.SUSP PO (07:27)
--- NOTE | 2023-11-12 09:15 | PC.NURSE ---
assumed care of patient at 0
--- NOTE | 2023-11-12 09:16 | PC.NURSE ---
assumed care of patient at 0700, patient has sitter 1:1 at bedside. appears to be sleeping off and on, respirations equal and unlabored, skin dry and intact. patient requested medicine for acid reflux this morning, medicated per JUN. patient VSS
--- NOTE | 2023-11-12 12:11 | PC.NURSE ---
patient appears to be asleep, respirations equal and unlabored, lunch at bedside. patient has sitter 1:1
--- NOTE | 2023-11-12 13:44 | P.CNPS_ITS ---
History of Present Illness Date of Service: 11/12/2023 Chief Complaint: feels unwell fever blurred vision Reason for Consult: f/u cognitive impairment/agitation Sources of Information: patient interviewed, chart reviewed and crisis/core team assessment reviewed HPI Narrative: Mrs. Hernandez is a 88 year-old woman who was sent to [facility] emergency department after she walked to [facility] staff there who knew her thought she seemed confused. In the ED patient found to have several fentanyl patches on her at the time which she could not explain to staff; found to be with UTI and started on antibiotic treatment. Increased concerned has been reported to case management in terms of her ability to care for herself and accept additional supports in the home. Pt seen and assessed by psychiatry back on 10/29/2023 deemed as not having capacity to make medical decisions. Further assessments have been completed to determine level of functional cognition. She scored 3.2 on ACL which shows severe cognitive impairment in ability to problem solve, anticipate potential dangerous situations. Such score does recommend 24/7 supervision and Mrs. Heranndez is not safe to live independently. Pt has been agitated in the evening and at times during the day, mostly demanding to be discharged back home. Not able to retain information regarding concerns in terms of her memory/cognitive impairments. No recollection of some medical conditions treated here including UTI. Today- Pt seen in her room. She asks if this automobile service writer knows why is she here, still. This automobile service writer explained in detail concern in terms of vascular dementia affecting her ability to care for herself. Her response to this information is that she believes any cognitive impairments are reversible and she may only need temporary placement. This automobile service writer explained that cognitive impairments in her situation are permanent, may have some progression, but slower than seen in other types of dementia. We discussed adding aricept, although mostly for AD, some benefit in Vascular dementia. No delusional content noted or reported. No signs of psychosis. No SI/HI. She does not seem to recall episodes of combative behaviors and need for IM which has been barrier for her to transition to memory unit. Past Psychiatric History: pt denies [facility] Medical History Chronic hip pain Vascular dementia with behavior disturbance Diagnostics Vital Signs (24Hr): Vital Signs - 24 hr 11/11/23 15:28 11/12/23 03:56 11/12/23 07:25 Temperature 98.7 F 96.9 F 99.1 F Pulse Rate 92 76 87 Respiratory Rate 14 16 16 Blood Pressure 128/71 103/79 102/66 Pulse Oximetry 99 95 98 Oxygen Delivery Method Room Air Room Air Room Air BMI result Body Mass Index 22.3 Labs 11/12/23 14:39 11/12/23 14:39 Mental Status Exam Mental Status Exam Narrative: Appearance: wearing gown, fair hygiene, in NAD Behavior: cooperative Psychomotor: no agitation or retardation noted Speech:clear, normal rate/rhythm/volume, spontaneous TP: mostly linear TC: wanting to transition to facility soon Mood: good Affect: congruent SI: denies HI: denies VH/AH: no signs Delusions: no delusions, some confabulation Insight/judgment: impaired x 2. memory/cog: alert oriented to place, month and year, not to situation. executive function and visuo spatial impairments. ACL score 3.2 on 11/11/2023. showing severe cognitive impairment and need for 04/11 care. Medications Medications Current Medications Acetaminophen (Acetaminophen 325 Mg Tablet) 975 mg PO TID [facility] Last Admin: 11/12/23 09:41 Dose: Not Given Fentanyl (Fentanyl 25 Mcg Patch.Td72) 25 mcg TRANSDERMA Q3D [facility] Last Admin: 11/10/23 21:47 Dose: 25 mcg Ibuprofen (Ibuprofen 600 Mg Tablet) 600 mg PO ONCE PRN PRN Reason: Pain, Mild (Pain Scale 1-3) Last Admin: 11/01/23 09:27 Dose: 600 mg Olanzapine (Olanzapine Odt 10 Mg Tab.Rapdis) 10 mg TRANSLINGU Q12H PRN PRN Reason: agitation Last Admin: 11/11/23 11:49 Dose: 10 mg Allergies Allergies Allergy/AdvReac Type Severity Reaction Status Date / Time No Known Allergies Allergy Verified 10/28/23 12:53 Assessment & Plan Assessment & Plan (1) Vascular dementia with behavior disturbance: Status: Acute Code(s): F01.518 - Vascular dementia, unspecified severity, with other behavioral disturbance Plan Mrs. Hernandez'jocelyne pattern of cognitive and memory impairment is consistent with a vascular type of dementia in which orientation for the most part tends to be fairly intact but higher cognitive function such as executive function, visuo spatial, ability to retain information and understand more complex information is impaired. Her functional cognition shows an even greater impairment with an ACL scored completed on 11/12/2023 of 3.2 showing severe cognitive impairments and need for 04/11 supervision and assistance. PLAN 1. Pt's HCP has been invoked. She is awaiting placement. No signs of delirium and capacity not expected to be regained. 2. Will repeat labs- including cmp given that she has received several IM antipsychotic medications over the last few days, unclear oral intake- also magnesium was low on admission. EKG with normal Qtc on admission. 3. will start aricept 5mg po qhs. will add risperidone 0.5mg po TID Total time managing care of this patient today ____ minutes.
--- NOTE | 2023-11-12 14:16 | PC.NURSE ---
patient sitting up, inpatient psych provider at bedside. patient eating lunch, awake and alert. sitter at bedside
[2023-11-12 15:06] LABS: Baso%MD 0.9 %; Hematocrit 32.8 % (37.0-47.0); Hemoglobin 9.9 g/dl (12.0-16.0); IG%MD 0.9 %; Lymph%MD 32.5 %; Mean Corpuscular HGB Conc 30.2 g/dl (31.0-35.0); Mean Corpuscular Hemoglobin 27.7 pg (27.0-33.0); Mean Corpuscular Volume 91.6 fL (80.0-98.0); Neut%MD 50.7 %; PLT CLUMP 1; Red Blood Count 3.58 X10*6/uL (4.20-5.50); Red Cell Distribution Width 20.6 % (11.0-16.0)
[2023-11-12 15:09] LABS: White Blood Count 10.2 X10*3/uL (4.8-10.8)
[2023-11-12] MEDS: Acetaminophen 325 MG TABLET 975 MG PO (15:27)
[2023-11-12 15:28] LABS: Alanine Aminotransferase 13 U/L (0-31); Albumin Level 2.7 g/dL (3.5-5.0); Alkaline Phosphatase 44 U/L (39-117); Anion Gap 12 (12-20); Aspartate Amino Transferase 22 U/L (5-31); Bilirubin Total 0.3 mg/dL (0.0-1.0); Blood Urea Nitrogen 22 mg/dL (9-16); Calcium 8.7 mg/dL (8.4-10.2); Carbon Dioxide 22 mmol/L (22-29); Chloride 109 mmol/L (96-108); Creatinine Clr Calc Pharmacy 48.2; Estimated Glomerular Filt Rate > 60; Glucose Random 86 mg/dL (60-115); Magnesium 2.2 mg/dL (1.6-2.6); Potassium 4.6 mmol/L (3.3-5.1); Sodium 138 mmol/L (135-145); Total Protein 5.4 g/dL (6.5-8.0)
[2023-11-12] MEDS: risperiDONE 0.5 MG TABLET PO (15:28)
--- NOTE | 2023-11-12 15:29 | PC.NURSE ---
patient medicated per MAR, patient starting to get agitated about why she is in the hospital and why she needs to take her medications. patient takes meds whole with water. sitter 1:[address]
[2023-11-12 15:34] LABS: Basophils Abs Manual 0.1 X10*3/uL (0.0-0.2); Basophils Percent Manual 1 % (0-2); Eosinophils Absolute Manual 0.5 X10*3/uL (0.0-0.4); Eosinophils Percent Manual 5 % (0-4); Lymphocytes Absolute Manual 2.4 X10*3/uL (1.2-4.9); Lymphocytes Percent Manual 24 % (20-40); Monocytes Absolute Manual 0.7 X10*3/uL (0.1-1.2); Monocytes Percent Manual 7 % (2-11); Neutrophils Percent Manual 63 % (45-73)
[2023-11-12 15:38] LABS: Ovalocytes 2+ (15-30) /OIF; RBC Morphology NOTED
[2023-11-12 15:39] LABS: Platelet Count 98 X10*3/uL (160-400); Platelet Estimate NORMAL (NORMAL); Platelet Morphology Comment NORMAL
[2023-11-12 15:40] LABS: Band Neutrophils Percent 0 % (3-5); Neutrophils Absolute Manual 6.4 X10*3/uL (2.0-8.3)
[2023-11-12 16:01] LABS: Cholesterol 192 mg/dL (<200); HDL Cholesterol 35 mg/dL (>40); LDL Cholesterol Calculated 126 mg/dL (<100); Triglycerides 157 mg/dL (<150)
[2023-11-12 16:20] LABS: Estimated Average Glucose 100 mg/dL; Hemoglobin A1c % 5.1 % (<6.0)
[2023-11-12 16:23] LABS: TSH reflex Free T4 0.46 uIU/mL (0.32-4.0)
[2023-11-12 16:35] LABS: Folate 4.5 ng/mL (> or = 4.0); Vitamin B12 322 pg/mL (200-900)
[2023-11-12 16:57] VITALS: BP 124/55; PULSE 86; RESP 20; TEMP 36.8; O2SAT 96
--- NOTE | 2023-11-12 17:07 | PC.NURSE ---
patient sitting up in bed, awake and alert, patient picking at dinner tray and watching tv, calm and cooperative. patient has sitter 1:1 VSS
--- NOTE | 2023-11-12 17:31 | P.HPHOSP_ITS ---
History of Present Illness Date of Service: 11/12/23 Attending physician on admission: Apoorva Horta Chief Complaint: dementia 88-year-old female with history of chronic right hip pain previously treated with fentanyl patches presented to the ED initially on 10/27 from her [facility] for not appearing well. She had been complaining of blurred vision, feeling short of breath and feeling weak. The patient had reportedly been experiencing similar complaints in the past and was seen at [facility] where she had a negative workup including MRI. She was then again seen in [facility] on 09/04 with negative workup for these symptoms including CT scan MRI and blood work. The MRI had revealed chronic microvascular ischemic changes and diffuse volume loss but no acute findings. She was sent to the [facility] for extended care in [place] but then was ultimately discharged home. Reportedly, she had presented to the ED on 10/27 wearing 5 fentanyl patches that she was unable to explain but is now blaming her VNA service for this. Urinalysis at the time of presentation was suspicious for UTI PMFSH Social History Smoked in Last 30 Days: No Advance Directives: Yes Advance Directives on File: Yes Advance Directives Date on File: 09/10/23 Meds Allergies Allergy/AdvReac Type Severity Reaction Status Date / Time No Known Allergies Allergy Verified 10/28/23 12:53 Active Medications: Current Medications Acetaminophen (Acetaminophen 325 Mg Tablet) 975 mg PO TID [facility] Last Admin: 11/12/23 15:27 Dose: 975 mg Donepezil HCl (Donepezil Hcl 5 Mg Tablet) 5 mg PO BEDTIME [facility] Fentanyl (Fentanyl 25 Mcg Patch.Td72) 25 mcg TRANSDERMA Q3D [facility] Last Admin: 11/10/23 21:47 Dose: 25 mcg Ibuprofen (Ibuprofen 600 Mg Tablet) 600 mg PO ONCE PRN PRN Reason: Pain, Mild (Pain Scale 1-3) Last Admin: 11/01/23 09:27 Dose: 600 mg Olanzapine (Olanzapine Odt 10 Mg Tab.Rapdis) 10 mg TRANSLINGU Q12H PRN PRN Reason: agitation Last Admin: 11/11/23 11:49 Dose: 10 mg Omeprazole (Omeprazole 20 Mg Capsule.Dr) 20 mg PO DAILY@0630 [facility] Risperidone (Risperidone 0.5 Mg Tablet) 0.5 mg PO TID [facility] Last Admin: 11/12/23 15:28 Dose: 0.5 mg Physical Exam 2 Vital Signs and Narrative: Vital Signs: Last Vital Signs Temp 98.3 F 11/12/23 16:57 Pulse 86 11/12/23 16:57 Resp 20 11/12/23 16:57 BP 124/55 L 11/12/23 16:57 Pulse Ox 96 11/12/23 16:57 O2 Del Method Room Air 11/12/23 16:57 BMI result Body Mass Index 22.3 Results Labs 11/12/23 14:39 11/12/23 14:39 Labs: Laboratory Results - last 24 hr 11/12/23 11/12/23 14:39 15:23 MCV 91.6 MCH 27.7 MCHC 30.2 L RDW 20.6 H Plt Count 98 L D MPV Not Reportable Absolute Nucleated RBC 0.000 Nucleated RBC % (auto) 0.0 Neutrophils % (Manual) 63 Band Neutrophils % 0 L Lymphocytes % (Manual) 24 Monocytes % (Manual) 7 Eosinophils % (Manual) 5 H Basophils % (Manual) 1 Abs Neuts (Manual) 6.4 Lymphocytes # (Manual) 2.4 Monocytes # (Manual) 0.7 Eosinophils # (Manual) 0.5 H Basophils # (Manual) 0.1 Platelet Estimate NORMAL Plt Morphology Comment NORMAL RBC Morphology NOTED Ovalocytes 2+ (15-30) Hold Purple Top SEE NOTE Anion Gap 12 Estim Creat Clear Calc 48.2 Estimated GFR > 60 Random Glucose 86 Estimat Average Glucose 100 Hemoglobin A1c % 5.1 Calcium 8.7 Magnesium 2.2 Total Bilirubin 0.3 AST 22 ALT 13 Alkaline Phosphatase 44 Total Protein 5.4 L Albumin 2.7 L Triglycerides 157 H Cholesterol 192 LDL Cholesterol, Calc 126 H HDL Cholesterol 35 L Vitamin B12 322 Folate 4.5 TSH 0.46 Hold Yellow Top See Note Quality VTE VTE Risk Level:: Medical - moderate - high VTE Device Contraindication: Treatment Not Indicated VTE Drug Contraindication: N/A - Med Ordered
--- NOTE | 2023-11-12 18:33 | PC.NURSE ---
patient ambulated to bathroom with walker 1 assist. pads changed on patient bed. patient brief changed while in bathroom
== END 2023-11-12 20:51 | disposition still patient (30) ==
PROVIDERS: Physician Assistant; Social Worker; Emergency Provider Emergency Medicine Emergency Medical Services; PCP Internal Medicine
DX: N39.0 Urinary tract infection, site not specified (principal); F11.23 Opioid dependence with withdrawal; F01.518 Vascular dementia, unspecified severity, with other behavioral disturbance; H53.8 Other visual disturbances; R50.9 Fever, unspecified; R45.1 Restlessness and agitation; R41.89 Other symptoms and signs involving cognitive functions and awareness; R41.0 Disorientation, unspecified; M25.551 Pain in right hip; R05.9 Cough, unspecified; R26.2 Difficulty in walking, not elsewhere classified; G89.4 Chronic pain syndrome; R06.02 Shortness of breath; Z79.899 Other long term (current) drug therapy; Z51.81 Encounter for therapeutic drug level monitoring
CPT/HCPCS: 36415; 80048; 80053; 80061; 80076; 80307; 81001; 81003; 82607; 82746; 82947; 83036; 83735; 84443; 85007; 85025; 85027; 87086; 87088; 87186; 93005; 96372; 96374; 97162; 99285; J2060; J2359; J2405; J3486

== ENCOUNTER → 2023-10-28 13:05 | Outpatient (BNV) | payer MEDICARE, MEDICAID, SELFPAY | PROVIDERS: Emergency Provider Emergency Medicine Emergency Medical Services; Visit Provider Internal Medicine Cardiovascular Disease | DX: R53.1 Weakness (principal) | CPT/HCPCS: 93010 ==

== ENCOUNTER → 2023-10-28 13:09 | Outpatient (BNV) | payer MEDICARE, MEDICAID, SELFPAY | PROVIDERS: Emergency Provider Emergency Medicine Emergency Medical Services; PCP Internal Medicine; Visit Provider Psychiatry & Neurology Psychiatry | DX: F01.518 Vascular dementia, unspecified severity, with other behavioral disturbance (principal) | CPT/HCPCS: 99232; 99283 ==

== ENCOUNTER 2023-11-12 20:17 | Observation (INO) | payer MEDICARE, MEDICAID, SELFPAY ==
--- NOTE | 2023-11-12 17:51 | P.HPHOSP_ITS ---
History of Present Illness Date of Service: 11/12/23 Attending physician on admission: Apoorva Horta Chief Complaint: dementia 88-year-old female with history of chronic right hip pain on fentanyl presented to the ED initially on 10/27 after being found at her [facility] appearing generally unwell. The patient was also found to have 5 fentanyl patches on her body and was unaware of the situation however today on exam, she is blaming her VNA service at home for the multiple patches. The patient on arrival had initially been complaining of blurred vision, feeling short of breath and generally weak. She had had similar complaints in the past and was seen at [facility] with negative workup including an MRI. She was then again seen on 09/04 at our ED for similar symptoms with again negative workup including CT scan and MRI of the brain and negative blood work. The MRI did reveal chronic microvascular ischemic changes and diffuse volume loss but no acute findings. She was then discharged from her ED stay to the [facility] at [place] but was ultimately discharged home. While in the ED, she was diagnosed with UTI and ultimately grew Citrobacter on her urine culture was treated with Ceftin. Repeat culture was obtained and ultimately grew Ps eudomonas. The patient has been boarding in the ED after being evaluated by Physical therapy who recommended short-term rehab but ultimately was concern that the patient may need long-term care. She has been evaluated by Psychiatry on 2 occasions and has been deemed to not have capacity due to underlying suspected vascular dementia having score of 3.21 ACL indicative of severe cognitive impairment. Recommended adding treatment with Aricept and Risperdal t.i.d.. The patient does have poor insight and judgment though does speak very confidently. She is being admitted to medical floors as a social admit while awaiting placement. I did initially call her primary healthcare proxy, Cathy, who reports that the patient did fire her as her healthcare proxy since arriving to the hospital. We did discuss with the patient does not have capacity but Cathy would like to be removed as her primary healthcare proxy. Subsequently, call placed to patient's sister, Jojo, who is secondary healthcare proxy who is aware of patient's transfer to the medical floors and is in agreement with plan of care. Review of Systems Review of Systems: General: No fevers, malaise, unintentional weight loss HEENT: No blurred vision, diplopia. No sore throat, nasal congestion, rhinorrhea, sinus pain, ear pain Cardiovascular: No chest pain, palpitations, or leg edema Respiratory: No shortness of breath, wheezing, cough GI: No abdominal pain, nausea, vomiting, diarrhea, constipation, melena, hematochezia : No dysuria, hematuria, increased urinary frequency, decreased urinary output MSK: No myalgia, back pain Neuro: No headaches, weakness, paresthesias Skin: No rashes or lesions COUNTS INCLUDE 234 BEDS AT THE [facility] Medical History Chronic hip pain Vascular dementia with behavior disturbance Social History Advance Directives: Yes Advance Directives on File: Yes Advance Directives Date on File: 09/10/23 Meds Allergies Allergy/AdvReac Type Severity Reaction Status Date / Time No Known Allergies Allergy Verified 10/28/23 12:53 Active Medications: Current Medications Acetaminophen (Acetaminophen 325 Mg Tablet) 650 mg PO Q6H PRN PRN Reason: Pain, Mild (Pain Scale 1-3), fever or headache Calcium Carbonate (Calcium Carbonate 750 Mg Tab.Chew) 750 mg PO Q4H PRN PRN Reason: Heartburn Enoxaparin Sodium (Enoxaparin Sodium 40 Mg/0.4 Ml Syringe) 40 mg SUBCUT Q24H [facility] Levofloxacin (Levofloxacin 250 Mg Tablet) 250 mg PO Q24H [facility] Stop: 11/14/23 17:46 Magnesium Hydroxide (Milk Of Magnesia 30 Ml Oral.Susp) 30 ml PO DAILY PRN PRN Reason: Constipation Melatonin (Melatonin 3 Mg Tablet) 6 mg PO BEDTIME PRN PRN Reason: Insomnia Sodium Chloride (0.9 % Sodium Chloride Flush 3 Ml Syringe) 3 ml IVFLUSH QSHIFT [facility]TA[facility] Physical Exam Vital Signs and Narrative: Constitutional - Awake and Alert, No apparent distress Eyes - PERRLA, EOMI Cardiovascular - S1S2, RRR, No edema Respiratory - Normal lung expansion, Normal respiratory effort, No respiratory distress, CTA bilaterally Gastrointestinal - NT / ND; +BS; No rebound or guarding Extremities - no calf tenderness bilaterally, no swelling Skin - Warm/Dry Neurological - Alert & oriented x3, CN II-XII in tact, 5/5 strength BUE and BLE Psychological - Appropriate affect Assessment and Plan (1) Vascular dementia with behavior disturbance: Status: Acute Plan 88-year-old female with history of chronic right hip pain on fentanyl to be observed as socail admit while admitting placement due to dementia #Vascular dementia -evaluated by psychiatry on 2 occasions scoring very low on ACL indicative of severe cognitive impairment and deemed to not have capacity. Healthcare proxy invoked -per Psychiatry, Aricept 5 mg bedtime and Risperdal 0.5 mg t.i.d. -continue sitter -awaiting placement to [facility] #Acute UTI -treated for citrobacter UTI with ceftin -11/05 repeat UC grew pseudomonas. Ass levaquin 250mg daily x 3 days (started 11/11) -no leukocytosis or sepsis #Chronic R hip pain -continue fentanyl patches DVT prophylaxis-Lovenox Full code-discussed with healthcare proxy HCP- primary HCP has been friend, Cathy, however pt fired Cathy. Discussed pt does not have capacity but Cathy would like to step back from role. HCP invoked- sister Jojo [phone] Quality Stroke Does the patient have a stroke diagnosis?: No VTE Prior VTE?: No VTE Risk Level:: Medical - moderate - high VTE Device Contraindication: Treatment Not Indicated VTE Drug Contraindication: N/A - Med Ordered
--- NOTE | 2023-11-12 23:37 | MHC.CM.ED ---
Addendum entered by Isabela Bertrand 11/12/23 23:39: HCP invoked. Per Hospitalist, Cathy has requested to step down as HCP. HCP/sister Jojo [phone] has agreed to be HCP. Use previous acct number to review psych note. Original Note: All of patients records can be accessed as she has been in boarder status for 13 days. Acees her record using .
--- NOTE | 2023-11-13 03:00 | PC.NURSE ---
note written by Mirta Hickman rn due to lack of chart access. pt awake and argumentative regarding assistance to bathroom. pt refusing to be touched, swearing and scratching any persons attempting to help. pt ambulated to bathroom using walker and 3 person standby. ambulated back to room and positioned self on hospital bed, allowed Mirta to assist with repositioning legs. new warm blankets provided and pt repositioned using pillows. pt sts she wants medication to help her sleep and begins yelling out for medication, repeatedly raising voice despite attempts at redirection. er head charger and coordinator called to assist with accessing meds and mar.
[2023-11-13] MEDS: Melatonin 3 MG TABLET 6 MG PO ×2 (03:11→19:29)
[2023-11-13] MEDS: Donepezil HCl 5 MG TABLET PO ×2 (03:12→19:28)
[2023-11-13] MEDS: OLANZapine ODT 10 MG TAB.RAPDIS TRANSLINGU ×3 (03:12→19:29)
[2023-11-13] MEDS: risperiDONE 0.5 MG TABLET PO ×4 (03:12→19:27)
--- NOTE | 2023-11-13 03:16 | PC.NURSE ---
Pt medicated with t/w and primary RN Mirta. (Mirta unable to document in chart due to registration error) Pt agreeable to taking medications, pt swallowing pills whole with gingerale. Pt resting in bed at this time.
[2023-11-13 04:46] VITALS: BP 111/56; PULSE 74; RESP 16; TEMP 36.1; O2SAT 95
[2023-11-13 04:48] VITALS: BMI 24.0
[2023-11-13 06:08] LABS: MANUAL DIFF FLAG NO
[2023-11-13 06:16] LABS: Basophils Absolute Auto 0.1 X10*3/uL (0.0-0.2); Basophils Percent Auto 0.9 % (0-2); Eosinophils Absolute Auto 0.6 X10*3/uL (0.0-0.4); Hematocrit 26.2 % (37.0-47.0); Hemoglobin 8.5 g/dl (12.0-16.0); Imm Gran Abs Auto 0.05 X10*3/uL (0.00-0.03); Imm Gran Pct Auto 0.6 % (0.0-0.4); Lymphocytes Absolute Auto 2.7 X10*3/uL (1.2-4.9); Lymphocytes Percent Auto 35.3 % (20-40); Mean Corpuscular HGB Conc 32.4 g/dl (31.0-35.0); Mean Corpuscular Hemoglobin 27.7 pg (27.0-33.0); Mean Corpuscular Volume 85.3 fL (80.0-98.0); Mean Platelet Volume 11.1 fL (9.4-12.3); Monocytes Absolute Auto 0.8 X10*3/uL (0.1-1.2); Monocytes Percent Auto 9.7 % (2-11); Neutrophils Absolute Auto 3.5 x10*3/uL (2.0-8.3); Neutrophils Percent Auto 45.5 % (45-73); Platelet Count 269 X10*3/uL (160-400); Red Blood Count 3.07 X10*6/uL (4.20-5.50); Red Cell Distribution Width 19.9 % (11.0-16.0); White Blood Count 7.8 X10*3/uL (4.8-10.8)
[2023-11-13] MEDS: levoFLOXacin 250 MG TABLET PO (06:16)
[2023-11-13] MEDS: Omeprazole 20 MG CAPSULE.DR PO (06:16)
[2023-11-13] MEDS: Enoxaparin Sodium 40 MG/0.4 ML SYRINGE SUBCUT (06:20)
--- NOTE | 2023-11-13 06:26 | MHC.PIE ---
p; pt arrived from overflow at 0430 with lovenox for 1799 and levaquin po for 1999 not given. i; pharmacy notified. time changed for AM e; [facility]
[2023-11-13 06:41] LABS: Anion Gap 9 (12-20); Blood Urea Nitrogen 19 mg/dL (9-16); Calcium 8.2 mg/dL (8.4-10.2); Carbon Dioxide 27 mmol/L (22-29); Chloride 108 mmol/L (96-108); Creatinine Clr Calc Pharmacy 46.8; Estimated Glomerular Filt Rate > 60; Glucose Random 93 mg/dL (60-115); Potassium 3.8 mmol/L (3.3-5.1); Sodium 140 mmol/L (135-145)
[2023-11-13 09:17] VITALS: BP 135/58; PULSE 94; RESP 18; TEMP 37; O2SAT 96
--- NOTE | 2023-11-13 09:21 | PHA.MEDREC ---
Pharmacy Consult ? Medication Reconciliation Pharmacy has completed the medication reconciliation. Attempted to call patient's sister Jojo who took over as HCP and left a message ([phone]). Also called patient's provider office ([phone]) who noted patient has no record of being discontinued from Cymbalta and Nexium. Utilized claim history, however the nurse I spoke to at Dr. Galeana's office noted that a 60 day supply of RX's were sent 08/22/23 (record previously showed last fills for both of these on 06/16/23 x 90 days). Included these medications on list.
--- NOTE | 2023-11-13 10:33 | P.PNIM_ITS ---
Subjective Subjective Date of Service: 11/13/23 Interval History: No acute issues overnight. Some agitated behavior this a.m. handled well by staff Review of Systems Unable to obtain Physical Exam 2 Vital Signs: Vital Signs: Last Vital Signs Temp 98.6 F 11/13/23 09:17 Pulse 94 11/13/23 09:17 Resp 18 11/13/23 09:17 BP 135/58 L 11/13/23 09:17 Pulse Ox 96 11/13/23 09:17 O2 Del Method Room Air 11/13/23 09:17 BMI result Body Mass Index 24.0 Const: Other: Awake alert no acute distress Resp: Other: Clear to auscultation bilaterally no rales rhonchi or wheezes Cardio: Other: No S4; positive S1-S2; no S3 murmurs rubs or gallops GI: Other: Soft nontender nondistended normoactive bowel sounds Neuro: Other: Awake alert confused. Cranial nerves 2-12 grossly intact as tested. Motor is 5/5 all extremities sensation is intact. Gait steady Extrem: Other: No edema bilaterally Objective Data Active Medications Acetaminophen (Acetaminophen 325 Mg Tablet) 650 mg PO Q6H PRN PRN Reason: Pain, Mild (Pain Scale 1-3), fever or headache Calcium Carbonate (Calcium Carbonate 750 Mg Tab.Chew) 750 mg PO Q4H PRN PRN Reason: Heartburn Donepezil HCl (Donepezil Hcl 5 Mg Tablet) 5 mg PO BEDTIME [facility] Last Admin: 11/13/23 03:12 Dose: 5 mg Documented By: DAYAN Enoxaparin Sodium (Enoxaparin Sodium 40 Mg/0.4 Ml Syringe) 40 mg SUBCUT Q24H [facility] Last Admin: 11/13/23 06:20 Dose: 40 mg Documented By: NAREN Fentanyl (Fentanyl 25 Mcg Patch.Td72) 25 mcg TRANSDERMA Q72H [facility] Levofloxacin (Levofloxacin 250 Mg Tablet) 250 mg PO Q24H [facility] Stop: 11/15/23 06:31 Last Admin: 11/13/23 06:16 Dose: 250 mg Documented By: NAREN Magnesium Hydroxide (Milk Of Magnesia 30 Ml Oral.Susp) 30 ml PO DAILY PRN PRN Reason: Constipation Melatonin (Melatonin 3 Mg Tablet) 6 mg PO BEDTIME PRN PRN Reason: Insomnia Last Admin: 11/13/23 03:11 Dose: 6 mg Documented By: DAYAN Olanzapine (Olanzapine Odt 10 Mg Tab.Rapdis) 10 mg TRANSLINGU BID PRN PRN Reason: agitation Last Admin: 11/13/23 10:12 Dose: 10 mg Documented By: ADILENE Comments: ok to give now per dr rowe Omeprazole (Omeprazole 20 Mg Capsule.) 20 mg PO DAILY@0630 [facility] Last Admin: 11/13/23 06:16 Dose: 20 mg Documented By: NAREN Risperidone (Risperidone 0.5 Mg Tablet) 0.5 mg PO TID [facility] Last Admin: 11/13/23 09:21 Dose: 0.5 mg Documented By: LOU Sodium Chloride (0.9 % Sodium Chloride Flush 3 Ml Syringe) 3 ml IVFLUSH QSHIFT [facility] Last Admin: 11/13/23 08:49 Dose: Not Given Documented By: ADILENE Non-Admin Reason: No Access Labs 11/13/23 05:50 11/13/23 05:50 Labs: Laboratory Results - last 24 hr 11/13/23 05:50 MCV 85.3 D MCH 27.7 MCHC 32.4 RDW 19.9 H Plt Count 269 D MPV 11.1 Immature Gran % (Auto) 0.6 H Neut % (Auto) 45.5 Lymph % (Auto) 35.3 [place] % (Auto) 9.7 Eos % (Auto) 8.0 H Baso % (Auto) 0.9 Lymph # (Auto) 2.7 [place] # (Auto) 0.8 Eos # (Auto) 0.6 H Baso # (Auto) 0.1 Abs Immat Gran (auto) 0.05 H Absolute Neuts (auto) 3.5 Absolute Nucleated RBC 0.000 Nucleated RBC % (auto) 0.0 Anion Gap 9 L Estim Creat Clear Calc 46.8 Estimated GFR > 60 Random Glucose 93 Calcium 8.2 L Assessment and Plan (1) Vascular dementia with behavior disturbance: Status: Acute (2) UTI (urinary tract infection): Status: Acute Plan 88-year-old female with history of chronic right hip pain on fentanyl to be observed as socail admit while admitting placement due to dementia 1.Vascular dementia -evaluated by psychiatry on 2 occasions scoring very low on ACL indicative of severe cognitive impairment and deemed to not have capacity. Healthcare proxy invoked -Aricept 5 mg /Risperdal 0.5 mg t.i.d... PRNs as indicated -continue sitter -awaiting placement to [facility]/LTC 2.Acute UTI -treated for citrobacter UTI with ceftin -levaquin 250mg daily x 3 days (2) 3Chronic R hip pain -continue fentanyl patches Lovenox Full code Requires ongoing hospitalization pending safe placement Quality Stroke Does the patient have a stroke diagnosis?: No VTE Prior VTE?: No VTE Risk Level:: Medical - moderate - high VTE Device Contraindication: Treatment Not Indicated VTE Drug Contraindication: N/A - Med Ordered
--- NOTE | 2023-11-13 11:56 | PC.NURSE ---
Pt agitated, yelling out I want to go home , pt stating, I'm in a half-way . Pt attempting to get out of bed without assistance, education provided on fall safety.. Pt verbally redirected multiple times without success, PRN Zyprexa given at 10:12 with good effect. 1:1 sitter in room for safety. MD Cantrell aware.
--- NOTE | 2023-11-13 12:59 | PC.NURSE ---
ACLS score Pt is an 88 y.o. woman presented to the the ED on 10/28/23 [facility] about her general well-being and ability to care for herself. Pt lives alone and has VNA services. PMH includes vascular dementia with behavioral disturbance, UTI. Pt presents in bed in ED, disheveled, darkness under her fingernails, unkempt and soiled hair. Pt is confused, verbal narrative is inconsistent, non-chronological. Pt scored a 3.2 on the Star Cognitive Level Screen indicating severe cognitive impairment and indicative of the need for 24 hour care. Pt cannot care for herself at home alone due to cognitive decline.
[2023-11-13] MEDS: Acetaminophen 325 MG TABLET 650 MG PO (13:12)
--- NOTE | 2023-11-13 14:36 | PC.NURSE ---
Two Fentanyl patches found on pt. Patch on left shoulder dated for 11/10/23. Patch on right chest dated for 11/07/23. Right chest patched removed and disposed of with CATARINO Perez. MD rowe made aware.
[2023-11-13 15:26] VITALS: BP 104/57; PULSE 91; RESP 18; TEMP 36.2; O2SAT 96
[2023-11-13 19:28] VITALS: BP 140/69; PULSE 103; RESP 18; TEMP 36.8; O2SAT 98
[2023-11-13] MEDS: fentaNYL 25 MCG PATCH.TD72 TRANSDERMA (20:47)
--- NOTE | 2023-11-13 21:00 | PC.NURSE ---
Fentanyl patch on left shoulder removed. New patched placed on middle upper back.
[2023-11-14 03:19] VITALS: BP 147/68; PULSE 93; RESP 18; TEMP 36.6; O2SAT 97
[2023-11-14] MEDS: Omeprazole 20 MG CAPSULE.DR PO (05:41)
[2023-11-14] MEDS: Acetaminophen 325 MG TABLET 650 MG PO ×2 (05:41→11:55)
[2023-11-14] MEDS: levoFLOXacin 250 MG TABLET PO (05:42)
[2023-11-14] MEDS: Enoxaparin Sodium 40 MG/0.4 ML SYRINGE SUBCUT (05:54)
[2023-11-14 06:16] LABS: MANUAL DIFF FLAG NO
[2023-11-14 06:25] LABS: Basophils Percent Auto 0.6 % (0-2); Eosinophils Absolute Auto 0.5 X10*3/uL (0.0-0.4); Eosinophils Percent Auto 7.4 % (0-4); Hematocrit 26.3 % (37.0-47.0); Hemoglobin 8.2 g/dl (12.0-16.0); Imm Gran Abs Auto 0.03 X10*3/uL (0.00-0.03); Imm Gran Pct Auto 0.4 % (0.0-0.4); Lymphocytes Absolute Auto 2.1 X10*3/uL (1.2-4.9); Lymphocytes Percent Auto 30.6 % (20-40); Mean Corpuscular HGB Conc 31.2 g/dl (31.0-35.0); Mean Corpuscular Hemoglobin 26.7 pg (27.0-33.0); Mean Corpuscular Volume 85.7 fL (80.0-98.0); Mean Platelet Volume 10.9 fL (9.4-12.3); Monocytes Absolute Auto 0.8 X10*3/uL (0.1-1.2); Monocytes Percent Auto 11.7 % (2-11); Neutrophils Absolute Auto 3.3 x10*3/uL (2.0-8.3); Neutrophils Percent Auto 49.3 % (45-73); Platelet Count 266 X10*3/uL (160-400); Red Blood Count 3.07 X10*6/uL (4.20-5.50); Red Cell Distribution Width 20.1 % (11.0-16.0); White Blood Count 6.8 X10*3/uL (4.8-10.8)
[2023-11-14 06:42] LABS: Alanine Aminotransferase 17 U/L (0-31); Albumin Level 2.9 g/dL (3.5-5.0); Alkaline Phosphatase 40 U/L (39-117); Anion Gap 10 (12-20); Aspartate Amino Transferase 18 U/L (5-31); Bilirubin Total 0.2 mg/dL (0.0-1.0); Blood Urea Nitrogen 15 mg/dL (9-16); Calcium 8.3 mg/dL (8.4-10.2); Carbon Dioxide 27 mmol/L (22-29); Chloride 109 mmol/L (96-108); Creatinine Clr Calc Pharmacy 46.8; Estimated Glomerular Filt Rate > 60; Glucose Fasting 105 mg/dL (60-99); Potassium 3.5 mmol/L (3.3-5.1); Sodium 142 mmol/L (135-145); Total Protein 4.9 g/dL (6.5-8.0)
[2023-11-14] MEDS: risperiDONE 0.5 MG TABLET PO (07:35)
[2023-11-14 08:00] VITALS: BP 144/63; PULSE 79; RESP 16; TEMP 36; O2SAT 97
[2023-11-14] MEDS: OLANZapine ODT 10 MG TAB.RAPDIS TRANSLINGU (09:33)
[2023-11-14 13:01] VITALS: BP 144/63; PULSE 79; O2SAT 97
[2023-11-14] MEDS: LORazepam 1 MG TABLET PO (13:29)
--- NOTE | 2023-11-14 14:45 | HO.PM.IMPN ---
Subjective Subjective Date of Service: 11/14/23 Interval History: No acute events overnight. Mild agitation managed with redirection Review of Systems Unable to obtain Physical Exam Vital Signs: Vital Signs: Last Vital Signs Temp 96.8 F 11/14/23 08:00 Pulse 79 11/14/23 13:01 Resp 16 11/14/23 08:00 BP 144/63 H 11/14/23 13:01 Pulse Ox 97 11/14/23 13:01 O2 Del Method Room Air 11/14/23 08:00 BMI result Body Mass Index 24.0 Const: Other: Awake alert no acute distress Resp: Other: Clear to auscultation bilaterally no rales rhonchi or wheezes Cardio: Other: No S4; positive S1-S2; no S3 murmurs rubs or gallops GI: Other: Soft nontender nondistended normoactive bowel sounds Neuro: Other: Awake alert confused. Cranial nerves 2-12 grossly intact as tested. Motor is 5/5 all extremities sensation is intact. Gait steady Extrem: Other: No edema bilaterally Objective Data Active Medications Acetaminophen (Acetaminophen 325 Mg Tablet) 650 mg PO Q6H PRN PRN Reason: Pain, Mild (Pain Scale 1-3), fever or headache Last Admin: 11/14/23 11:55 Dose: 650 mg Documented By: COTEMA Calcium Carbonate (Calcium Carbonate 750 Mg Tab.Chew) 750 mg PO Q4H PRN PRN Reason: Heartburn Donepezil HCl (Donepezil Hcl 5 Mg Tablet) 5 mg PO BEDTIME [facility] Last Admin: 11/13/23 19:28 Dose: 5 mg Documented By: SAEID Enoxaparin Sodium (Enoxaparin Sodium 40 Mg/0.4 Ml Syringe) 40 mg SUBCUT Q24H [facility] Last Admin: 11/14/23 05:54 Dose: 40 mg Documented By: SAEID Fentanyl (Fentanyl 25 Mcg Patch.Td72) 25 mcg TRANSDERMA Q72H [facility] Last Admin: 11/13/23 20:47 Dose: 25 mcg Documented By: SAEID Levofloxacin (Levofloxacin 250 Mg Tablet) 250 mg PO Q24H [facility] Stop: 11/15/23 06:31 Last Admin: 11/14/23 05:42 Dose: 250 mg Documented By: SAEID Magnesium Hydroxide (Milk Of Magnesia 30 Ml Oral.Susp) 30 ml PO DAILY PRN PRN Reason: Constipation Melatonin (Melatonin 3 Mg Tablet) 6 mg PO BEDTIME PRN PRN Reason: Insomnia Last Admin: 11/13/23 19:29 Dose: 6 mg Documented By: SAEID Olanzapine (Olanzapine Odt 10 Mg Tab.Rapdis) 10 mg TRANSLINGU BID PRN PRN Reason: agitation Last Admin: 11/14/23 09:33 Dose: 10 mg Documented By: LOU Omeprazole (Omeprazole 20 Mg Capsule.Dr) 20 mg PO DAILY@0630 [facility] Last Admin: 11/14/23 05:41 Dose: 20 mg Documented By: SAEID Risperidone (Risperidone 2 Mg Tablet) 2 mg PO BID [facility] Sodium Chloride (0.9 % Sodium Chloride Flush 3 Ml Syringe) 3 ml IVFLUSH QSHIFT [facility] Last Admin: 11/14/23 14:33 Dose: Not Given Documented By: LOU Non-Admin Reason: No Access Labs 11/14/23 05:21 11/14/23 05:21 Labs: Laboratory Results - last 24 hr 11/14/23 05:21 MCV 85.7 MCH 26.7 L MCHC 31.2 RDW 20.1 H Plt Count 266 MPV 10.9 Immature Gran % (Auto) 0.4 Neut % (Auto) 49.3 Lymph % (Auto) 30.6 [place] % (Auto) 11.7 H Eos % (Auto) 7.4 H Baso % (Auto) 0.6 Lymph # (Auto) 2.1 [place] # (Auto) 0.8 Eos # (Auto) 0.5 H Baso # (Auto) 0.0 Abs Immat Gran (auto) 0.03 Absolute Neuts (auto) 3.3 Absolute Nucleated RBC 0.000 Nucleated RBC % (auto) 0.0 Anion Gap 10 L Estim Creat Clear Calc 46.8 Estimated GFR > 60 Fasting Glucose 105 H Calcium 8.3 L Total Bilirubin 0.2 AST 18 ALT 17 Alkaline Phosphatase 40 Total Protein 4.9 L Albumin 2.9 L Assessment and Plan (1) Vascular dementia with behavior disturbance: Status: Acute Plan 88-year-old female with history of chronic right hip pain on fentanyl to be observed as socail admit while admitting placement due to dementia 1.Vascular dementia -evaluated by psychiatry on 2 occasions scoring very low on ACL indicative of severe cognitive impairment and deemed to not have capacity. Healthcare proxy invoked -Aricept 5 mg /Risperdal 0.5 mg t.i.d... PRNs as indicated -continue sitter -awaiting placement to [facility]/LTC 2.Acute UTI -treated for citrobacter UTI with ceftin -levaquin 250mg daily x 3 days (3) 3Chronic R hip pain -continue fentanyl patches Lovenox Full code Requires ongoing hospitalization pending safe placement Quality Stroke Does the patient have a stroke diagnosis?: No VTE Prior VTE?: No VTE Risk Level:: Medical - moderate - high VTE Device Contraindication: Treatment Not Indicated VTE Drug Contraindication: N/A - Med Ordered
[2023-11-14 15:16] VITALS: BP 119/63; PULSE 81; RESP 18; TEMP 36.5; O2SAT 97
[2023-11-14 20:00] VITALS: BP 122/58; PULSE 93; RESP 18; TEMP 36.3; O2SAT 94
[2023-11-14] MEDS: Donepezil HCl 5 MG TABLET PO (21:01)
[2023-11-14] MEDS: risperiDONE 2 MG TABLET PO (21:01)
[2023-11-14] MEDS: Melatonin 3 MG TABLET 6 MG PO (21:01)
[2023-11-14] MEDS: Trolamine Salicylate 10 % Cream 85 GM TUBE 1 APPL TOPICAL (22:56)
[2023-11-15] MEDS: Acetaminophen 325 MG TABLET 650 MG PO (00:07)
[2023-11-15 04:00] VITALS: BP 124/57; PULSE 81; RESP 16; TEMP 36.4; O2SAT 98
[2023-11-15 06:24] LABS: MANUAL DIFF FLAG NO
[2023-11-15 06:28] LABS: Basophils Absolute Auto 0.1 X10*3/uL (0.0-0.2); Basophils Percent Auto 0.7 % (0-2); Eosinophils Absolute Auto 0.4 X10*3/uL (0.0-0.4); Eosinophils Percent Auto 5.5 % (0-4); Hematocrit 25.6 % (37.0-47.0); Imm Gran Abs Auto 0.06 X10*3/uL (0.00-0.03); Imm Gran Pct Auto 0.9 % (0.0-0.4); Lymphocytes Percent Auto 28.6 % (20-40); Mean Corpuscular HGB Conc 31.3 g/dl (31.0-35.0); Mean Corpuscular Hemoglobin 26.8 pg (27.0-33.0); Mean Corpuscular Volume 85.6 fL (80.0-98.0); Mean Platelet Volume 11.3 fL (9.4-12.3); Monocytes Absolute Auto 0.8 X10*3/uL (0.1-1.2); Monocytes Percent Auto 11.5 % (2-11); Neutrophils Absolute Auto 3.6 x10*3/uL (2.0-8.3); Neutrophils Percent Auto 52.8 % (45-73); Platelet Count 284 X10*3/uL (160-400); Red Blood Count 2.99 X10*6/uL (4.20-5.50); Red Cell Distribution Width 19.9 % (11.0-16.0); White Blood Count 6.9 X10*3/uL (4.8-10.8)
[2023-11-15 06:58] LABS: Alanine Aminotransferase 22 U/L (0-31); Albumin Level 2.9 g/dL (3.5-5.0); Alkaline Phosphatase 41 U/L (39-117); Anion Gap 12 (12-20); Aspartate Amino Transferase 20 U/L (5-31); Bilirubin Total 0.2 mg/dL (0.0-1.0); Blood Urea Nitrogen 14 mg/dL (9-16); Calcium 8.6 mg/dL (8.4-10.2); Carbon Dioxide 23 mmol/L (22-29); Chloride 111 mmol/L (96-108); Creatinine Clr Calc Pharmacy 46.8; Estimated Glomerular Filt Rate > 60; Glucose Fasting 92 mg/dL (60-99); Potassium 3.3 mmol/L (3.3-5.1); Sodium 143 mmol/L (135-145)
[2023-11-15 07:10] VITALS: BP 130/62; PULSE 88; RESP 18; TEMP 36.5; O2SAT 95
[2023-11-15] MEDS: Omeprazole 20 MG CAPSULE.DR PO (07:15)
[2023-11-15] MEDS: levoFLOXacin 250 MG TABLET PO (07:15)
[2023-11-15] MEDS: Enoxaparin Sodium 40 MG/0.4 ML SYRINGE SUBCUT (07:17)
[2023-11-15] MEDS: risperiDONE 2 MG TABLET PO ×2 (09:38→19:08)
--- NOTE | 2023-11-15 10:47 | HO.PM.IMPN ---
Subjective Subjective Date of Service: 11/15/23 Interval History: No acute behavioral issues overnight. Review of Systems Unable to obtain Physical Exam Vital Signs: Vital Signs: Last Vital Signs Temp 97.7 F 11/15/23 07:10 Pulse 88 11/15/23 07:10 Resp 18 11/15/23 07:10 BP 130/62 11/15/23 07:10 Pulse Ox 95 11/15/23 07:10 O2 Del Method Room Air 11/15/23 07:10 BMI result Body Mass Index 24.0 Const: Other: Awake alert no acute distress Resp: Other: Clear to auscultation bilaterally no rales rhonchi or wheezes Cardio: Other: No S4; positive S1-S2; no S3 murmurs rubs or gallops GI: Other: Soft nontender nondistended normoactive bowel sounds Neuro: Other: Awake alert confused. Cranial nerves 2-12 grossly intact as tested. Motor is 5/5 all extremities sensation is intact. Gait steady Extrem: Other: No edema bilaterally Objective Data Active Medications Acetaminophen (Acetaminophen 325 Mg Tablet) 650 mg PO Q6H PRN PRN Reason: Pain, Mild (Pain Scale 1-3), fever or headache Last Admin: 11/15/23 00:07 Dose: 650 mg Documented By: TARYN Calcium Carbonate (Calcium Carbonate 750 Mg Tab.Chew) 750 mg PO Q4H PRN PRN Reason: Heartburn Donepezil HCl (Donepezil Hcl 5 Mg Tablet) 5 mg PO BEDTIME [facility] Last Admin: 11/14/23 21:01 Dose: 5 mg Documented By: TARYN Enoxaparin Sodium (Enoxaparin Sodium 40 Mg/0.4 Ml Syringe) 40 mg SUBCUT Q24H [facility] Last Admin: 11/15/23 07:17 Dose: 40 mg Documented By: TARYN Fentanyl (Fentanyl 25 Mcg Patch.Td72) 25 mcg TRANSDERMA Q72H [facility] Last Admin: 11/13/23 20:47 Dose: 25 mcg Documented By: SAEID Magnesium Hydroxide (Milk Of Magnesia 30 Ml Oral.Susp) 30 ml PO DAILY PRN PRN Reason: Constipation Melatonin (Melatonin 3 Mg Tablet) 6 mg PO BEDTIME PRN PRN Reason: Insomnia Last Admin: 11/14/23 21:01 Dose: 6 mg Documented By: TARYN Olanzapine (Olanzapine Odt 10 Mg Tab.Rapdis) 10 mg TRANSLINGU BID PRN PRN Reason: agitation Last Admin: 11/14/23 09:33 Dose: 10 mg Documented By: LOU Omeprazole (Omeprazole 20 Mg Capsule.Dr) 20 mg PO DAILY@0630 [facility] Last Admin: 11/15/23 07:15 Dose: 20 mg Documented By: TARYN Risperidone (Risperidone 2 Mg Tablet) 2 mg PO BID [facility] Last Admin: 11/15/23 09:38 Dose: 2 mg Documented By: RODO Sodium Chloride (0.9 % Sodium Chloride Flush 3 Ml Syringe) 3 ml IVFLUSH QSHIFT [facility] Last Admin: 11/15/23 07:19 Dose: Not Given Documented By: RODO Non-Admin Reason: No Access Trolamine Salicylate (Trolamine Salicylate 10 % Cream 85 Gm Tube) 1 appl TOPICAL BID PRN PRN Reason: Pain, Mild (Pain Scale 1-3) Last Admin: 11/14/23 22:56 Dose: 1 appl Documented By: TARYN Labs 11/15/23 05:34 11/15/23 05:34 Labs: Laboratory Results - last 24 hr 11/15/23 05:34 MCV 85.6 MCH 26.8 L MCHC 31.3 RDW 19.9 H Plt Count 284 MPV 11.3 Immature Gran % (Auto) 0.9 H Neut % (Auto) 52.8 Lymph % (Auto) 28.6 [place] % (Auto) 11.5 H Eos % (Auto) 5.5 H Baso % (Auto) 0.7 Lymph # (Auto) 2.0 [place] # (Auto) 0.8 Eos # (Auto) 0.4 Baso # (Auto) 0.1 Abs Immat Gran (auto) 0.06 H Absolute Neuts (auto) 3.6 Absolute Nucleated RBC 0.000 Nucleated RBC % (auto) 0.0 Anion Gap 12 Estim Creat Clear Calc 46.8 Estimated GFR > 60 Fasting Glucose 92 Calcium 8.6 Total Bilirubin 0.2 AST 20 ALT 22 Alkaline Phosphatase 41 Total Protein 5.0 L Albumin 2.9 L Assessment and Plan (1) Vascular dementia with behavior disturbance: Status: Acute (2) UTI (urinary tract infection): Status: Acute Plan 88-year-old female with history of chronic right hip pain on fentanyl to be observed as socail admit while admitting placement due to dementia 1.Vascular dementia -evaluated by psychiatry on 2 occasions scoring very low on ACL indicative of severe cognitive impairment and deemed to not have capacity. Healthcare proxy invoked -Aricept 5 mg /Risperdal 1mg BID with good response -continue sitter -awaiting placement to [facility]/LTC 2.Acute UTI -treated for citrobacter UTI with ceftin -levaquin 250mg daily x 3 days (3) 3Chronic R hip pain -continue fentanyl patches Lovenox Full code Requires ongoing hospitalization pending safe placement Quality Stroke Does the patient have a stroke diagnosis?: No VTE Prior VTE?: No VTE Risk Level:: Medical - moderate - high VTE Device Contraindication: Treatment Not Indicated VTE Drug Contraindication: N/A - Med Ordered
--- NOTE | 2023-11-15 13:33 | MHC.CM.PN ---
PATIENT TRANSFERRED TO [facility] UNDER OBSERVATION STATUS. CM ATTEMPTED TO CONTACT HCP/SISTER LISHA @ [phone]. RIVER DELIVERED VIA CM. PER CHART REVIEW, PATIENT IS FROM HOME ALONE W/ [facility] VIA [facility]: [employer] AND [employer] SUPPORT [employer] 6HRS/WK. IN ED PATIENT CONFUSED AND BEHAVIORAL. HCP INVOKED. SEE ED CM NOTES. 1:1 SITTER REMAINS AT BEDSIDE. PCP KATIE FUNES MD HCP ON FILE. DP: PT REC STR, WILL LIKELY TRANSITION TO LTC. PATIENT W/ [facility] & [place]. NO QHS, WILL NEED TO USE [facility] FOR STR. WILL SEND REFERRALS TO LOCAL SNF'S VIA [facility]. CM WILL CONTINUE TO FOLLOW.
[2023-11-15 15:41] VITALS: BP 113/58; PULSE 84; RESP 18; TEMP 36.6; O2SAT 96
[2023-11-15] MEDS: Donepezil HCl 5 MG TABLET PO (19:08)
[2023-11-15 20:00] VITALS: BP 136/64; PULSE 83; RESP 20; TEMP 36.6; O2SAT 96
[2023-11-16] MEDS: OLANZapine ODT 10 MG TAB.RAPDIS TRANSLINGU ×2 (00:27→22:26)
[2023-11-16] MEDS: Acetaminophen 325 MG TABLET 650 MG PO ×2 (00:27→18:17)
[2023-11-16] MEDS: Melatonin 3 MG TABLET 6 MG PO ×2 (00:49→21:25)
--- NOTE | 2023-11-16 01:30 | PC.NURSE ---
Pt with agitation. Frequently attempting to get oob. Stating she wants to leave. This rn asked patient where she wants to go at this time. patient replied i dont care. just not here. ill go to the parking lot . Pt informed she cannot leave. PRN Zyprexa given. Pt then began asking for something to help her sleep as she was experiencing insomnia. PRN melatonin given. Pt also c/o of a headache. PRN Tylenol given.
[2023-11-16 03:56] VITALS: BP 138/63; PULSE 84; RESP 16; TEMP 36.6; O2SAT 95
[2023-11-16] MEDS: Omeprazole 20 MG CAPSULE.DR PO (05:59)
[2023-11-16] MEDS: Enoxaparin Sodium 40 MG/0.4 ML SYRINGE SUBCUT (05:59)
[2023-11-16 06:37] LABS: MANUAL DIFF FLAG NO
[2023-11-16 06:59] LABS: Basophils Absolute Auto 0.1 X10*3/uL (0.0-0.2); Basophils Percent Auto 0.8 % (0-2); Eosinophils Absolute Auto 0.7 X10*3/uL (0.0-0.4); Eosinophils Percent Auto 9.3 % (0-4); Hematocrit 25.6 % (37.0-47.0); Imm Gran Abs Auto 0.04 X10*3/uL (0.00-0.03); Imm Gran Pct Auto 0.6 % (0.0-0.4); Lymphocytes Absolute Auto 2.4 X10*3/uL (1.2-4.9); Lymphocytes Percent Auto 33.8 % (20-40); Mean Corpuscular HGB Conc 31.3 g/dl (31.0-35.0); Mean Corpuscular Hemoglobin 26.8 pg (27.0-33.0); Mean Corpuscular Volume 85.9 fL (80.0-98.0); Neutrophils Absolute Auto 2.9 x10*3/uL (2.0-8.3); Neutrophils Percent Auto 41.5 % (45-73); Platelet Count 256 X10*3/uL (160-400); Red Blood Count 2.98 X10*6/uL (4.20-5.50); Red Cell Distribution Width 20.1 % (11.0-16.0); White Blood Count 7.1 X10*3/uL (4.8-10.8)
[2023-11-16 07:04] LABS: Alanine Aminotransferase 16 U/L (0-31); Albumin Level 2.9 g/dL (3.5-5.0); Alkaline Phosphatase 39 U/L (39-117); Anion Gap 13 (12-20); Aspartate Amino Transferase 14 U/L (5-31); Bilirubin Total 0.2 mg/dL (0.0-1.0); Blood Urea Nitrogen 13 mg/dL (9-16); Calcium 8.5 mg/dL (8.4-10.2); Carbon Dioxide 23 mmol/L (22-29); Chloride 111 mmol/L (96-108); Creatinine Clr Calc Pharmacy 47.5; Estimated Glomerular Filt Rate > 60; Glucose Fasting 87 mg/dL (60-99); Potassium 3.6 mmol/L (3.3-5.1); Sodium 143 mmol/L (135-145); Total Protein 4.9 g/dL (6.5-8.0)
[2023-11-16] MEDS: risperiDONE 2 MG TABLET PO ×2 (07:34→20:50)
[2023-11-16 08:00] VITALS: BP 123/58; PULSE 67; RESP 12; TEMP 36.1; O2SAT 96
--- NOTE | 2023-11-16 13:45 | HO.PM.IMPN ---
Subjective Subjective Date of Service: 11/16/23 Interval History: No acute issues overnight. Behavior well control with current therapies Review of Systems Unable to obtain Physical Exam Vital Signs: Vital Signs: Last Vital Signs Temp 97.0 F 11/16/23 08:00 Pulse 67 11/16/23 08:00 Resp 12 11/16/23 08:00 BP 123/58 L 11/16/23 08:00 Pulse Ox 96 11/16/23 08:00 O2 Del Method Room Air 11/16/23 08:00 BMI result Body Mass Index 24.0 Const: Other: Awake alert no acute distress Resp: Other: Clear to auscultation bilaterally no rales rhonchi or wheezes Cardio: Other: No S4; positive S1-S2; no S3 murmurs rubs or gallops GI: Other: Soft nontender nondistended normoactive bowel sounds Neuro: Other: Awake alert confused. Cranial nerves 2-12 grossly intact as tested. Motor is 5/5 all extremities sensation is intact. Gait steady Extrem: Other: No edema bilaterally Objective Data Active Medications Acetaminophen (Acetaminophen 325 Mg Tablet) 650 mg PO Q6H PRN PRN Reason: Pain, Mild (Pain Scale 1-3), fever or headache Last Admin: 11/16/23 00:27 Dose: 650 mg Documented By: HENRI Calcium Carbonate (Calcium Carbonate 750 Mg Tab.Chew) 750 mg PO Q4H PRN PRN Reason: Heartburn Donepezil HCl (Donepezil Hcl 5 Mg Tablet) 5 mg PO BEDTIME [facility] Last Admin: 11/15/23 19:08 Dose: 5 mg Documented By: CECIL Enoxaparin Sodium (Enoxaparin Sodium 40 Mg/0.4 Ml Syringe) 40 mg SUBCUT Q24H [facility] Last Admin: 11/16/23 05:59 Dose: 40 mg Documented By: HENRI Fentanyl (Fentanyl 25 Mcg Patch.Td72) 25 mcg TRANSDERMA Q72H [facility] Last Admin: 11/13/23 20:47 Dose: 25 mcg Documented By: SAEID Magnesium Hydroxide (Milk Of Magnesia 30 Ml Oral.Susp) 30 ml PO DAILY PRN PRN Reason: Constipation Melatonin (Melatonin 3 Mg Tablet) 6 mg PO BEDTIME PRN PRN Reason: Insomnia Last Admin: 11/16/23 00:49 Dose: 6 mg Documented By: HENRI Olanzapine (Olanzapine Odt 10 Mg Tab.Rapdis) 10 mg TRANSLINGU BID PRN PRN Reason: agitation Last Admin: 11/16/23 00:27 Dose: 10 mg Documented By: HENRI Omeprazole (Omeprazole 20 Mg Capsule.Dr) 20 mg PO DAILY@0630 [facility] Last Admin: 11/16/23 05:59 Dose: 20 mg Documented By: HENRI Risperidone (Risperidone 2 Mg Tablet) 2 mg PO BID [facility] Last Admin: 11/16/23 07:34 Dose: 2 mg Documented By: JEREMY Trolamine Salicylate (Trolamine Salicylate 10 % Cream 85 Gm Tube) 1 appl TOPICAL BID PRN PRN Reason: Pain, Mild (Pain Scale 1-3) Last Admin: 11/14/23 22:56 Dose: 1 appl Documented By: TARYN Labs 11/16/23 06:02 11/16/23 06:02 Labs: Laboratory Results - last 24 hr 11/16/23 06:02 MCV 85.9 MCH 26.8 L MCHC 31.3 RDW 20.1 H Plt Count 256 MPV 11.0 Immature Gran % (Auto) 0.6 H Neut % (Auto) 41.5 L Lymph % (Auto) 33.8 [place] % (Auto) 14.0 H Eos % (Auto) 9.3 H Baso % (Auto) 0.8 Lymph # (Auto) 2.4 [place] # (Auto) 1.0 Eos # (Auto) 0.7 H Baso # (Auto) 0.1 Abs Immat Gran (auto) 0.04 H Absolute Neuts (auto) 2.9 Absolute Nucleated RBC 0.000 Nucleated RBC % (auto) 0.0 Anion Gap 13 Estim Creat Clear Calc 47.5 Estimated GFR > 60 Fasting Glucose 87 Calcium 8.5 Total Bilirubin 0.2 AST 14 ALT 16 Alkaline Phosphatase 39 Total Protein 4.9 L Albumin 2.9 L Assessment and Plan (1) Vascular dementia with behavior disturbance: Status: Acute Plan 88-year-old female with history of chronic right hip pain on fentanyl to be observed as socail admit while admitting placement due to dementia 1.Vascular dementia -evaluated by psychiatry on 2 occasions scoring very low on ACL indicative of severe cognitive impairment and deemed to not have capacity. Healthcare proxy invoked -Aricept 5 mg /Risperdal 1mg BID with good response -continue sitter -awaiting placement to STR/LTC 2.Acute UTI -treated for citrobacter UTI with ceftin -levaquin 250mg daily x 3 days (3) 3Chronic R hip pain -continue fentanyl patches Lovenox Full code Requires ongoing hospitalization pending safe placement Quality Stroke Does the patient have a stroke diagnosis?: No VTE Prior VTE?: No VTE Risk Level:: Medical - moderate - high VTE Device Contraindication: Treatment Not Indicated VTE Drug Contraindication: N/A - Med Ordered
[2023-11-16 15:31] VITALS: BP 106/56; PULSE 74; RESP 14; TEMP 37; O2SAT 96
[2023-11-16 20:00] VITALS: BP 132/63; PULSE 90; RESP 16; TEMP 36.2; O2SAT 98
[2023-11-16] MEDS: fentaNYL 25 MCG PATCH.TD72 TRANSDERMA (20:49)
[2023-11-16] MEDS: Donepezil HCl 5 MG TABLET PO (20:50)
[2023-11-16] MEDS: LORazepam 1 MG TABLET PO (23:35)
--- NOTE | 2023-11-16 23:36 | MHC.PIE ---
Addendum entered by Manan Argueta RN 11/17/23 00:56: p; pt cont to fight sleep jumping out of bed, calling/yelling for help numerous times repeatedly. setting bed and camera alarm on. note; no sitter at this time. i; dr alexander notified. new order im zyprexa. nursing truck repair supervisor notified for need for sitter back in room e; sitter now placed in room. im zyprexa given, will cont to monitor Original Note: p; pt c/o insomnia. pt jumping our of bed numerous time noted with agitation, anxious and restless. note; prn melatonin and prn Zyprexa given with little to no result. i; dr alexander notified. new order Ativan po now e; will cont to monitor
[2023-11-16 23:54] VITALS: BP 127/62; PULSE 82; RESP 16; TEMP 37; O2SAT 96
[2023-11-17] MEDS: OLANZapine 10 MG VIAL 5 MG IM (00:47)
[2023-11-17] MEDS: Acetaminophen 325 MG TABLET 650 MG PO (03:51)
[2023-11-17] MEDS: Enoxaparin Sodium 40 MG/0.4 ML SYRINGE SUBCUT (05:30)
[2023-11-17] MEDS: Omeprazole 20 MG CAPSULE.DR PO (05:30)
[2023-11-17 07:36] VITALS: BP 141/70; PULSE 86; RESP 16; TEMP 36.1; O2SAT 100
[2023-11-17] MEDS: risperiDONE 2 MG TABLET PO ×2 (07:50→20:00)
[2023-11-17] MEDS: Ibuprofen 600 MG TABLET PO (09:49)
--- NOTE | 2023-11-17 10:51 | P.PNIM_ITS ---
Subjective Subjective Date of Service: 11/17/23 Interval History: No acute behavioral issues overnight. More alert this a.m. Review of Systems Unable to obtain Physical Exam 2 Vital Signs: Vital Signs: Last Vital Signs Temp 97.0 F 11/17/23 07:36 Pulse 86 11/17/23 07:36 Resp 16 11/17/23 07:36 BP 141/70 H 11/17/23 07:36 Pulse Ox 100 11/17/23 07:36 O2 Del Method Room Air 11/17/23 07:36 BMI result Body Mass Index 24.0 Const: Other: Awake alert no acute distress Resp: Other: Clear to auscultation bilaterally no rales rhonchi or wheezes Cardio: Other: No S4; positive S1-S2; no S3 murmurs rubs or gallops GI: Other: Soft nontender nondistended normoactive bowel sounds Neuro: Other: Awake alert confused. Cranial nerves 2-12 grossly intact as tested. Motor is 5/5 all extremities sensation is intact. Gait steady Extrem: Other: No edema bilaterally Objective Data Active Medications Acetaminophen (Acetaminophen 325 Mg Tablet) 650 mg PO Q6H PRN PRN Reason: Pain, Mild (Pain Scale 1-3), fever or headache Last Admin: 11/17/23 03:51 Dose: 650 mg Documented By: NAREN Calcium Carbonate (Calcium Carbonate 750 Mg Tab.Chew) 750 mg PO Q4H PRN PRN Reason: Heartburn Donepezil HCl (Donepezil Hcl 5 Mg Tablet) 5 mg PO BEDTIME [facility] Last Admin: 11/16/23 20:50 Dose: 5 mg Documented By: NAREN Enoxaparin Sodium (Enoxaparin Sodium 40 Mg/0.4 Ml Syringe) 40 mg SUBCUT Q24H [facility] Last Admin: 11/17/23 05:30 Dose: 40 mg Documented By: NAREN Fentanyl (Fentanyl 25 Mcg Patch.Td72) 25 mcg TRANSDERMA Q72H [facility] Last Admin: 11/16/23 20:49 Dose: 25 mcg Documented By: NAREN Ibuprofen (Ibuprofen 600 Mg Tablet) 600 mg PO Q8H PRN PRN Reason: Pain, Mild (Pain Scale 1-3) Last Admin: 11/17/23 09:49 Dose: 600 mg Documented By: LEWIS Magnesium Hydroxide (Milk Of Magnesia 30 Ml Oral.Susp) 30 ml PO DAILY PRN PRN Reason: Constipation Melatonin (Melatonin 3 Mg Tablet) 6 mg PO BEDTIME PRN PRN Reason: Insomnia Last Admin: 11/16/23 21:25 Dose: 6 mg Documented By: NAREN Olanzapine (Olanzapine Odt 10 Mg Tab.Rapdis) 10 mg TRANSLINGU BID PRN PRN Reason: agitation Last Admin: 11/16/23 22:26 Dose: 10 mg Documented By: NAREN Omeprazole (Omeprazole 20 Mg Capsule.Dr) 20 mg PO DAILY@0630 [facility] Last Admin: 11/17/23 05:30 Dose: 20 mg Documented By: NAREN Risperidone (Risperidone 2 Mg Tablet) 2 mg PO BID [facility] Last Admin: 11/17/23 07:50 Dose: 2 mg Documented By: LEWIS Trolamine Salicylate (Trolamine Salicylate 10 % Cream 85 Gm Tube) 1 appl TOPICAL BID PRN PRN Reason: Pain, Mild (Pain Scale 1-3) Last Admin: 11/14/23 22:56 Dose: 1 appl Documented By: TARYN Labs 11/16/23 06:02 11/16/23 06:02 Assessment and Plan (1) Vascular dementia with behavior disturbance: Status: Acute Plan 88-year-old female with history of chronic right hip pain on fentanyl to be observed as socail admit while admitting placement due to dementia 1.Vascular dementia -Aricept 5 mg /Risperdal 1mg BID with good response -awaiting placement to STR/LTC 2.Acute UTI -treated for citrobacter UTI with ceftin -levaquin 250mg daily x 3 days (3) 3Chronic R hip pain -continue fentanyl patches Lovenox Full code Requires ongoing hospitalization pending safe placement Quality Stroke Does the patient have a stroke diagnosis?: No VTE Prior VTE?: No VTE Risk Level:: Medical - moderate - high VTE Device Contraindication: Treatment Not Indicated VTE Drug Contraindication: N/A - Med Ordered
--- NOTE | 2023-11-17 14:09 | MHC.CM.PN ---
A clinical update has been sent to referrals. [facility] via BLS. [facility] are following.
[2023-11-17 15:32] VITALS: PULSE 90; RESP 16; TEMP 36.2; O2SAT 96
[2023-11-17 16:09] VITALS: BP 99/54
[2023-11-17 19:40] VITALS: BP 101/55; RESP 16; TEMP 36.1; O2SAT 97
[2023-11-17] MEDS: Melatonin 3 MG TABLET 6 MG PO (20:00)
[2023-11-17] MEDS: Donepezil HCl 5 MG TABLET PO (20:00)
[2023-11-18 03:50] VITALS: BP 106/58; PULSE 84; RESP 18; TEMP 36.3; O2SAT 98
[2023-11-18] MEDS: Enoxaparin Sodium 40 MG/0.4 ML SYRINGE SUBCUT (05:51)
[2023-11-18] MEDS: Omeprazole 20 MG CAPSULE.DR PO (05:51)
--- NOTE | 2023-11-18 06:15 | PC.NURSE ---
noted patient has a fentanyl patch on right shoulder and a small foam dressing present to coccyx.
[2023-11-18 08:00] VITALS: BP 109/54; PULSE 78; RESP 18; TEMP 36.1; O2SAT 97
[2023-11-18] MEDS: risperiDONE 2 MG TABLET PO ×2 (08:06→20:12)
--- NOTE | 2023-11-18 13:35 | HO.PM.IMPN ---
Subjective Subjective Date of Service: 11/18/23 Interval History: No acute issues overnight. Review of Systems Unable to obtain Physical Exam Vital Signs: Vital Signs: Last Vital Signs Temp 97.0 F 11/18/23 08:00 Pulse 78 11/18/23 08:00 Resp 18 11/18/23 08:00 BP 109/54 L 11/18/23 08:00 Pulse Ox 97 11/18/23 08:00 O2 Del Method Room Air 11/18/23 08:00 BMI result Body Mass Index 24.0 Const: Other: Awake alert no acute distress Resp: Other: Clear to auscultation bilaterally no rales rhonchi or wheezes Cardio: Other: No S4; positive S1-S2; no S3 murmurs rubs or gallops GI: Other: Soft nontender nondistended normoactive bowel sounds Neuro: Other: Awake alert confused. Cranial nerves 2-12 grossly intact as tested. Motor is 5/5 all extremities sensation is intact. Gait steady Extrem: Other: No edema bilaterally Objective Data Active Medications Acetaminophen (Acetaminophen 325 Mg Tablet) 650 mg PO Q6H PRN PRN Reason: Pain, Mild (Pain Scale 1-3), fever or headache Last Admin: 11/17/23 03:51 Dose: 650 mg Documented By: NAREN Calcium Carbonate (Calcium Carbonate 750 Mg Tab.Chew) 750 mg PO Q4H PRN PRN Reason: Heartburn Donepezil HCl (Donepezil Hcl 5 Mg Tablet) 5 mg PO BEDTIME [facility] Last Admin: 11/17/23 20:00 Dose: 5 mg Documented By: ESTHER Enoxaparin Sodium (Enoxaparin Sodium 40 Mg/0.4 Ml Syringe) 40 mg SUBCUT Q24H [facility] Last Admin: 11/18/23 05:51 Dose: 40 mg Documented By: ESTHER Fentanyl (Fentanyl 25 Mcg Patch.Td72) 25 mcg TRANSDERMA Q72H [facility] Last Admin: 11/16/23 20:49 Dose: 25 mcg Documented By: NAREN Ibuprofen (Ibuprofen 600 Mg Tablet) 600 mg PO Q8H PRN PRN Reason: Pain, Mild (Pain Scale 1-3) Last Admin: 11/17/23 09:49 Dose: 600 mg Documented By: LEWIS Magnesium Hydroxide (Milk Of Magnesia 30 Ml Oral.Susp) 30 ml PO DAILY PRN PRN Reason: Constipation Melatonin (Melatonin 3 Mg Tablet) 6 mg PO BEDTIME PRN PRN Reason: Insomnia Last Admin: 11/17/23 20:00 Dose: 6 mg Documented By: ESTHER Omeprazole (Omeprazole 20 Mg Capsule.Dr) 20 mg PO DAILY@0630 [facility] Last Admin: 11/18/23 05:51 Dose: 20 mg Documented By: ESTHER Quetiapine Fumarate (Quetiapine Fumarate 25 Mg Tablet) 25 mg PO BID [facility] Risperidone (Risperidone 2 Mg Tablet) 2 mg PO BID [facility] Last Admin: 11/18/23 08:06 Dose: 2 mg Documented By: DABLicha Trolamine Salicylate (Trolamine Salicylate 10 % Cream 85 Gm Tube) 1 appl TOPICAL BID PRN PRN Reason: Pain, Mild (Pain Scale 1-3) Last Admin: 11/14/23 22:56 Dose: 1 appl Documented By: CHELSEYSA Labs 11/16/23 06:02 11/16/23 06:02 Assessment and Plan (1) Vascular dementia with behavior disturbance: Status: Acute Plan 88-year-old female with history of chronic right hip pain on fentanyl to be observed as socail admit while admitting placement due to dementia 1.Vascular dementia -Aricept 5 mg /Risperdal 1mg BID -add Seroquel -awaiting placement to STR/LTC 2.Acute UTI -treated for citrobacter UTI with ceftin -levaquin 250mg daily x 3 days (3) 3Chronic R hip pain -continue fentanyl patches Lovenox Full code Requires ongoing hospitalization pending safe placement Quality Stroke Does the patient have a stroke diagnosis?: No VTE Prior VTE?: No VTE Risk Level:: Medical - moderate - high VTE Device Contraindication: Treatment Not Indicated VTE Drug Contraindication: N/A - Med Ordered
[2023-11-18 16:18] VITALS: BP 112/55; PULSE 75; RESP 18; TEMP 36.3; O2SAT 96
[2023-11-18 18:20] VITALS: BP 103/56; PULSE 93; O2SAT 99
[2023-11-18 20:08] VITALS: BP 117/56; PULSE 87; RESP 20; TEMP 36.7; O2SAT 97
[2023-11-18] MEDS: Donepezil HCl 5 MG TABLET PO (20:12)
[2023-11-18] MEDS: QUEtiapine Fumarate 25 MG TABLET PO (20:12)
[2023-11-18] MEDS: Melatonin 3 MG TABLET 6 MG PO (21:57)
[2023-11-19 04:00] VITALS: BP 110/55; PULSE 84; RESP 18; TEMP 36.3; O2SAT 96
[2023-11-19] MEDS: Enoxaparin Sodium 40 MG/0.4 ML SYRINGE SUBCUT (05:50)
[2023-11-19] MEDS: Omeprazole 20 MG CAPSULE.DR PO (05:51)
[2023-11-19 07:59] VITALS: BP 102/52; PULSE 78; RESP 18; TEMP 36.1; O2SAT 96
[2023-11-19] MEDS: QUEtiapine Fumarate 25 MG TABLET PO ×2 (08:50→19:53)
[2023-11-19] MEDS: risperiDONE 2 MG TABLET PO ×2 (08:50→19:53)
--- NOTE | 2023-11-19 10:52 | P.PNIM_ITS ---
Subjective Subjective Date of Service: 11/19/23 Interval History: Being followed for placement. Offers no acute complaints, tolerated diet. Review of Systems Unable to obtain due to mental status. Physical Exam 2 Vital Signs: Vital Signs: Last Vital Signs Temp 96.9 F 11/19/23 07:59 Pulse 78 11/19/23 07:59 Resp 18 11/19/23 07:59 BP 102/52 L 11/19/23 07:59 Pulse Ox 96 11/19/23 07:59 O2 Del Method Room Air 11/19/23 07:59 BMI result Body Mass Index 24.0 Const: Other: General awake alert, resting comfortably in no acute distress. Neck no JVD. CVS regular rate rhythm, Respiratory lungs clear to auscultation, no respiratory distress, no wheeze, no rhonchi. Gastrointestinal abdomen soft, non tender, bowel sounds audible Extremities no edema. Neuro non focal ,moving all 4 extremity, speech clear. Skin no rash Psych poor insight Objective Data Active Medications Acetaminophen (Acetaminophen 325 Mg Tablet) 650 mg PO Q6H PRN PRN Reason: Pain, Mild (Pain Scale 1-3), fever or headache Last Admin: 11/17/23 03:51 Dose: 650 mg Documented By: NAREN Calcium Carbonate (Calcium Carbonate 750 Mg Tab.Chew) 750 mg PO Q4H PRN PRN Reason: Heartburn Donepezil HCl (Donepezil Hcl 5 Mg Tablet) 5 mg PO BEDTIME [facility] Last Admin: 11/18/23 20:12 Dose: 5 mg Documented By: ESTHRE Enoxaparin Sodium (Enoxaparin Sodium 40 Mg/0.4 Ml Syringe) 40 mg SUBCUT Q24H [facility] Last Admin: 11/19/23 05:50 Dose: 40 mg Documented By: ESTHER Fentanyl (Fentanyl 25 Mcg Patch.Td72) 25 mcg TRANSDERMA Q72H [facility] Last Admin: 11/16/23 20:49 Dose: 25 mcg Documented By: NAREN Ibuprofen (Ibuprofen 600 Mg Tablet) 600 mg PO Q8H PRN PRN Reason: Pain, Mild (Pain Scale 1-3) Last Admin: 11/17/23 09:49 Dose: 600 mg Documented By: LEWIS Magnesium Hydroxide (Milk Of Magnesia 30 Ml Oral.Susp) 30 ml PO DAILY PRN PRN Reason: Constipation Melatonin (Melatonin 3 Mg Tablet) 6 mg PO BEDTIME PRN PRN Reason: Insomnia Last Admin: 11/18/23 21:57 Dose: 6 mg Documented By: ESTHER Omeprazole (Omeprazole 20 Mg Capsule.Dr) 20 mg PO DAILY@0630 [facility] Last Admin: 11/19/23 05:51 Dose: 20 mg Documented By: AVERYZ Quetiapine Fumarate (Quetiapine Fumarate 25 Mg Tablet) 25 mg PO BID [facility] Last Admin: 11/19/23 08:50 Dose: 25 mg Documented By: DABLicha Risperidone (Risperidone 2 Mg Tablet) 2 mg PO BID [facility] Last Admin: 11/19/23 08:50 Dose: 2 mg Documented By: DABLicha Trolamine Salicylate (Trolamine Salicylate 10 % Cream 85 Gm Tube) 1 appl TOPICAL BID PRN PRN Reason: Pain, Mild (Pain Scale 1-3) Last Admin: 11/14/23 22:56 Dose: 1 appl Documented By: CHELSEYSA Labs 11/16/23 06:02 11/16/23 06:02 Assessment and Plan (1) Vascular dementia with behavior disturbance: Status: Acute Plan 88-year-old female with history of chronic right hip pain on fentanyl to be observed as socail admit while admitting placement due to dementia 1.Vascular dementia -Aricept 5 mg /Risperdal 1mg BID -Seroquel 25 mg b.i.d. started on 11/17 -awaiting placement to [facility]/LTC 2.Acute UTI -treated for citrobacter UTI with ceftin, finished course of antibiotic 3Chronic R hip pain -continue fentanyl patch Lovenox Full code Requires ongoing hospitalization pending safe placement Quality Stroke Does the patient have a stroke diagnosis?: No VTE Prior VTE?: No VTE Risk Level:: Medical - moderate - high VTE Device Contraindication: Treatment Not Indicated VTE Drug Contraindication: N/A - Med Ordered
--- NOTE | 2023-11-19 10:57 | P.PNIM_ITS ---
Subjective Subjective Date of Service: 11/19/23 Interval History: Being followed for acute CHF. Complaining of tiredness, denies shortness of breath, no leg edema, no PND, no orthopnea, no acute issues overnight. Review of Systems All other system reviewed and are negative Physical Exam 2 Vital Signs: Vital Signs: Last Vital Signs Temp 96.9 F 11/19/23 07:59 Pulse 78 11/19/23 07:59 Resp 18 11/19/23 07:59 BP 102/52 L 11/19/23 07:59 Pulse Ox 96 11/19/23 07:59 O2 Del Method Room Air 11/19/23 07:59 BMI result Body Mass Index 24.0 Const: Other: General patient resting comfortably in no acute distress. Neck is supple no JVD. CVS regular rate rhythm, Respiratory lungs clear to auscultation, no respiratory distress, no wheeze, no rhonchi. Gastrointestinal abdomen soft, nontender, bowel sounds audible, no no guarding , no rigidity. Extremities no clubbing cyanosis or edema. Neuro nonfocal patient moving all 4 extremity speech clear. Skin no rash Objective Data Active Medications Acetaminophen (Acetaminophen 325 Mg Tablet) 650 mg PO Q6H PRN PRN Reason: Pain, Mild (Pain Scale 1-3), fever or headache Last Admin: 11/17/23 03:51 Dose: 650 mg Documented By: NAREN Calcium Carbonate (Calcium Carbonate 750 Mg Tab.Chew) 750 mg PO Q4H PRN PRN Reason: Heartburn Donepezil HCl (Donepezil Hcl 5 Mg Tablet) 5 mg PO BEDTIME [facility] Last Admin: 11/18/23 20:12 Dose: 5 mg Documented By: ESTHER Enoxaparin Sodium (Enoxaparin Sodium 40 Mg/0.4 Ml Syringe) 40 mg SUBCUT Q24H [facility] Last Admin: 11/19/23 05:50 Dose: 40 mg Documented By: ESTHER Fentanyl (Fentanyl 25 Mcg Patch.Td72) 25 mcg TRANSDERMA Q72H [facility] Last Admin: 11/16/23 20:49 Dose: 25 mcg Documented By: NAREN Ibuprofen (Ibuprofen 600 Mg Tablet) 600 mg PO Q8H PRN PRN Reason: Pain, Mild (Pain Scale 1-3) Last Admin: 11/17/23 09:49 Dose: 600 mg Documented By: LEWIS Magnesium Hydroxide (Milk Of Magnesia 30 Ml Oral.Susp) 30 ml PO DAILY PRN PRN Reason: Constipation Melatonin (Melatonin 3 Mg Tablet) 6 mg PO BEDTIME PRN PRN Reason: Insomnia Last Admin: 11/18/23 21:57 Dose: 6 mg Documented By: ESTHER Omeprazole (Omeprazole 20 Mg Capsule.Dr) 20 mg PO DAILY@0630 [facility] Last Admin: 11/19/23 05:51 Dose: 20 mg Documented By: ESTHER Quetiapine Fumarate (Quetiapine Fumarate 25 Mg Tablet) 25 mg PO BID [facility] Last Admin: 11/19/23 08:50 Dose: 25 mg Documented By: DABLicha Risperidone (Risperidone 2 Mg Tablet) 2 mg PO BID [facility] Last Admin: 11/19/23 08:50 Dose: 2 mg Documented By: DABLicha Trolamine Salicylate (Trolamine Salicylate 10 % Cream 85 Gm Tube) 1 appl TOPICAL BID PRN PRN Reason: Pain, Mild (Pain Scale 1-3) Last Admin: 11/14/23 22:56 Dose: 1 appl Documented By: CHELSEYSA Labs 11/16/23 06:02 11/16/23 06:02 Quality Stroke Does the patient have a stroke diagnosis?: No VTE Prior VTE?: No VTE Risk Level:: Medical - moderate - high VTE Device Contraindication: Treatment Not Indicated VTE Drug Contraindication: N/A - Med Ordered
[2023-11-19 13:10] VITALS: BP 102/52; PULSE 78; O2SAT 96
--- NOTE | 2023-11-19 14:32 | PC.NURSE ---
pt alert and cooperative with care , pt ambulated to BR with walker , steady gait , pt took all meds as directed , no issues .
[2023-11-19] MEDS: Acetaminophen 325 MG TABLET 650 MG PO (14:47)
[2023-11-19 15:42] VITALS: BP 101/58; PULSE 81; RESP 16; TEMP 36.6; O2SAT 98
[2023-11-19] MEDS: fentaNYL 25 MCG PATCH.TD72 TRANSDERMA (19:44)
[2023-11-19 19:45] VITALS: BP 137/63; PULSE 88; RESP 18; TEMP 36.1; O2SAT 99
--- NOTE | 2023-11-19 19:48 | PC.NURSE ---
New Fentanyl patch applied to left outer upper arm (see MAR). Old patch removed from right shoulder and disposed in approved disposal bottle in med room. Witnessed by another RN Shreyas Kay.
[2023-11-19] MEDS: Donepezil HCl 5 MG TABLET PO (19:53)
[2023-11-19] MEDS: Melatonin 3 MG TABLET 6 MG PO (21:13)
[2023-11-20] MEDS: Acetaminophen 325 MG TABLET 650 MG PO (00:45)
[2023-11-20 03:25] VITALS: RESP 15
[2023-11-20] MEDS: Omeprazole 20 MG CAPSULE.DR PO (06:12)
[2023-11-20] MEDS: Enoxaparin Sodium 40 MG/0.4 ML SYRINGE SUBCUT (06:12)
[2023-11-20 08:00] VITALS: BP 134/62; PULSE 66; RESP 18; TEMP 36.3; O2SAT 98
[2023-11-20] MEDS: QUEtiapine Fumarate 25 MG TABLET PO (08:27)
[2023-11-20] MEDS: risperiDONE 2 MG TABLET PO (08:27)
--- NOTE | 2023-11-20 11:33 | PM.DS ---
DS: Providers Provider Date of Service: 11/20/23 Date of admission: 11/12/23 20:17 Primary care physician: Unknown Physician DS: Diagnosis Discharge Diagnosis (1) Vascular dementia with behavior disturbance: Status: Acute DS: Summary Hospital Course Hospital Course: History of presenting illness: Date of Service: 11/12/23 Attending physician on admission: Apoorva Horta Chief Complaint: dementia 88-year-old female with history of chronic right hip pain on fentanyl presented to the ED initially on 10/27 after [facility] appearing generally unwell. The patient was also found to have 5 fentanyl patches on her body and was unaware of the situation however today on exam, she is blaming her VNA service at home for the multiple patches. The patient on arrival had initially been complaining of blurred vision, feeling short of breath and generally weak. She had had similar complaints in the past and was seen at [facility] with negative workup including an MRI. She was then again seen on 09/04 at our ED for similar symptoms with again negative workup including CT scan and MRI of the brain and negative blood work. The MRI did reveal chronic microvascular ischemic changes and diffuse volume loss but no acute findings. She was then discharged from her ED stay to [facility] [place] but was ultimately discharged home. While in the ED, she was diagnosed with UTI and ultimately grew Citrobacter on her urine culture was treated with Ceftin. Repeat culture was obtained and ultimately grew Pseudomonas. The patient has been boarding in the ED after being evaluated by Physical therapy who recommended short-term rehab but ultimately was concern that the patient may need long-term care. She has been evaluated by Psychiatry on 2 occasions and has been deemed to not have capacity due to underlying suspected vascular dementia having score of 3.21 ACL indicative of severe cognitive impairment. Recommended adding treatment with Aricept and Risperdal t.i.d.. The patient does have poor insight and judgment though does speak very confidently. She is being admitted to medical floors as a social admit while awaiting placement. I did initially call her primary healthcare proxy, Cathy, who reports that the patient did fire her as her healthcare proxy since arriving to the hospital. We did discuss with the patient does not have capacity but Cathy would like to be removed as her primary healthcare proxy. Subsequently, call placed to patient's sister, Jojo, who is secondary healthcare proxy who is aware of patient's transfer to the medical floors and is in agreement with plan of care. Hospital course: 88-year-old female with history of chronic right hip pain on fentanyl, admitted due to dementia and inability to take care of herself, patient was evaluated by Psychiatry and was noted to have low scoring on ACL indicative of severe cognitive impairment and deemed incompetent, therefore healthcare proxy invoked, patient treated with Aricept 5 mg at bedtime, risperidone 0.5 mg b.i.d. and Seroquel 25 mg b.i.d. started on 11/17 patient evaluated by Physical therapy and now being discharged to rehab facility for less than 30 days, she finished course of antibiotic for Citrobacter UTI, in regard to chronic right hip pain she is being continued on fentanyl patch 25 mcg to be changed q.72 hours, recommend to use as needed Tylenol/Motrin for breakthrough pain. Time Attestation Discharge Coordination Time (in mins): 36 Quality: Safe Use of Opioids Does Pt have an Active Cancer Diagnosis on the Problem List?: No Quality: Stroke Does the patient have a stroke diagnosis?: No Physical Exam Vital Signs: Vital Signs: Last Vital Signs Temp 97.4 F 11/20/23 08:00 Pulse 66 11/20/23 08:00 Resp 18 11/20/23 08:00 BP 134/62 11/20/23 08:00 Pulse Ox 98 11/20/23 08:00 O2 Del Method Room Air 11/20/23 08:00 BMI result Body Mass Index 24.0 Const: Other: General awake alert, in no acute distress. Neck no JVD. CVS regular rate rhythm, Respiratory lungs clear to auscultation, no respiratory distress, no wheeze, no rhonchi. Gastrointestinal abdomen soft, non tender, bowel sounds audible Extremities no edema. Neuro non focal ,moving all 4 extremity, speech clear. Skin no rash Psych poor insight Discharge Plan Discharge Patient Disposition: er SNF Referrals: Physician,Unknown J [Primary Care Provider] - 1 Week Discharge Medications: New fentanyl 25 mcg/hr Patch 72 Hour 25 mcg transdermal Q72H Qty: 5 0RF Rx Instructions: Partial Fill upon patient request. melatonin 3 mg Tablet 6 mg PO BEDTIME PRN (Reason: Insomnia) Qty: 30 0RF donepezil 5 mg Tablet 5 mg PO BEDTIME Qty: 30 0RF quetiapine 25 mg Tablet 25 mg PO BID Qty: 60 0RF Antacid Ext Str (calcium carb) 300 mg (750 mg) Tablet,Chewable 2.5 tab PO Q4H PRN (Reason: Heartburn) Qty: 30 0RF risperidone 2 mg Tablet 2 mg PO BID Qty: 60 0RF Continued esomeprazole magnesium 40 mg capsule,delayed release(DR/EC) 40 mg PO DAILY Discontinued duloxetine 30 mg capsule,delayed release(DR/EC) 30 mg PO DAILY fentanyl 12 mcg/hr patch 72 hour 3 patch transdermal Q72H Qty: 5 0RF Rx Instructions: Partial Fill upon patient request. Discharge Orders: Discharge Order (Routine); Ordered 11/20/23 Ordered By: Melany Ames Diet: Advance to usual diet Activity on Discharge: As tolerated Stand Alone Forms: Patient Portal Discharge page Print Language: Syriac Care Plan Goals: Short-term rehab for less than 30 days Continue all above medications Health Concerns: Dementia Plan of Treatment: Outpatient follow-up with primary care physician Assessment: As above
--- NOTE | 2023-11-20 11:38 | MHC.CM.PN ---
[facility] OFFERING PT A BED PT WILL RECEIVE STR ON ADMISSION AND THEN TRANSITION TO LTC CM CALLED PTS HCP, LISHA [phone], SHE IS AWARE OF BED OFFER AND IN AGREEMENT WITH [facility] MEDICARE RIGHTS WERE REVIEWED WITH HER AND A COPY WILL BE MAILED TO HER AT [address] [place] [address] BLS TRANSPORT BOOKED WITH DANILO FOR 1400 HOURS MDS COMPLETED AND [facility]ED TO [facility]
== END 2023-11-20 17:47 | disposition skilled nursing facility (03) ==
LOC: HO.EDOVER 11-13 03:49 → HO.S3 11-13 07:29 → HO.EDOVER 11-17 10:13
PROVIDERS: Hospitalist; Admitting Provider Physician Assistant; PCP Internal Medicine; Visit Provider Hospitalist
DX: F91.1 Conduct disorder, childhood-onset type (principal); F01.511 Vascular dementia, unspecified severity, with agitation; N39.0 Urinary tract infection, site not specified; H53.8 Other visual disturbances; M25.551 Pain in right hip
CPT/HCPCS: 36415; 80048; 80053; 85025; 96372; 97116; 97161; 99221; J1650; J2359

== ENCOUNTER → 2023-11-12 | Outpatient (BNV) | payer MEDICARE, MEDICAID, SELFPAY | PROVIDERS: Admitting Provider Physician Assistant; Visit Provider Physician Assistant | DX: F01.518 Vascular dementia, unspecified severity, with other behavioral disturbance (principal) | CPT/HCPCS: 99222; 99231; 99239 ==

== ENCOUNTER 2023-11-30 19:53 | Emergency (ER) | payer MEDICARE, MEDICAID, SELFPAY ==
--- NOTE | ~2023-11-30 | CT_ITS ---
EXAMINATION: CT HEAD WITHOUT CONTRAST CT CERVICAL SPINE WITHOUT CONTRAST CLINICAL INFORMATION: Unwitnessed fall. Altered mental status. Neck pain/tenderness after fall. COMPARISON: MRI brain 09/06/2023 TECHNIQUE: CT of the head and cervical spine were performed without intravenous contrast. Multiplanar reformats were rendered and reviewed. This CT examination was performed using dose optimization techniques as appropriate, variously including the following: *Automated exposure control *Adjustment of mA and/or kV according to patient size (this includes techniques or standardized protocols for targeted exams where dose is matched to indication/reason for exam; i.e. extremities or head) *Use of iterative reconstruction technique DLP: 892 mGy-cm. FINDINGS: CT head: No evidence of acute intracranial hemorrhage or edematous territorial infarction. The mendoza-white matter differentiation appears preserved. The ventricles and cortical sulci are proportional without significant volume loss. Patchy hypodensities in the periventricular and deep white matter likely representing mild chronic microangiopathy. There is no mass effect or midline shift. No acute extra-axial collection. No acute osseous or soft tissue abnormality. Hyperostosis frontalis interna. Aerosolized secretions within the right compartment of sphenoid sinus. Mild mucosal thickening involving the left compartment is paraspinous the remaining paranasal sinuses and mastoids are well-aerated. CT cervical spine: Diffuse osseous demineralization. The atlantooccipital and atlantoaxial articulations remain well aligned. Mild degenerative changes at the atlantodental articulations. The cervical vertebral bodies demonstrate normal height. Minimal retrolisthesis of C2 over C3. Moderate multilevel cervical spondylosis with marginal osteophytes and intervertebral disc space narrowing at C2-C3 through C6-C7. No acute fracture involving the cervical spine. The prevertebral and paravertebral soft tissues appear unremarkable. There is a large hypodense left thyroid lobe nodule/mass measuring approximately 3.8 x 2.8 cm. Included lung apices demonstrate mild mosaic attenuation. CT/CT cervical spine wo IV con IMPRESSION: CT head: No acute intracranial abnormality. CT cervical spine: No acute fracture involving the cervical spine. Moderate multilevel cervical spondylosis as detailed. 3.8 cm hypodense left thyroid lobe nodule/mass. Further evaluation with dedicated thyroid ultrasound is recommended.
[2023-11-30 19:59] VITALS: BP 108/70; PULSE 78; O2SAT 97
[2023-11-30 20:05] VITALS: BP 140/64; PULSE 72; RESP 16; TEMP 36.5; O2SAT 97; BMI 25.5
--- NOTE | 2023-11-30 20:08 | ED_ITS ---
HPI - General Adult General Chief complaint: Fall Stated complaint: fall,neck pain Time Seen by Provider: 11/30/23 20:07 History of Present Illness ED Provider: Sridhar HAYES narrative: The patient is an 88-year-old woman who was sent to the emergency room from the assisted [facility]. Patient has been at the facility for about 10 days. The patient had been hospitalized here from October 27 through November 19. During that time the patient had spent 2 weeks as an observation patient in the emergency room before being admitted to the medical service. The patient's primary issue relates to her dementia and behaviors connected with her dementia. She had 2 urine specimen sent during that time. She had had urine culture positive for Citrobacter freundii on October 27 and on November 05 had a urine culture positive for Pseudomonas. Neither these organisms had any identified resistances. The patient was sent from the custodial today after she had been found on the floor. It is unclear if she had put herself on the floor or if she had fallen. On arrival here she was complaining of a great deal of neck pain. It was not clear if the neck pain was related to a cervical collar that has been placed by EMS or whether the neck pain preceded the placement of the collar. In any event when I first examined the patient and open the collar patient continued to complain of significant neck pain and tenderness. The patient is not able to give any significant additional history. She seems quite demented and was frequently yelling help! very loudly. Related Data Home Medications ?Medication ?Instructions ?Recorded ?Confirmed esomeprazole magnesium 40 mg 40 mg PO DAILY 11/13/23 11/13/23 capsule,delayed release Previous Rx's ?Medication ?Instructions ?Recorded calcium carbonate (Antacid Ext Str 2.5 tab PO Q4H PRN Heartburn #30 11/20/23 (calcium carb)) tabs donepezil 5 mg tablet 5 mg PO BEDTIME #30 tabs 11/20/23 fentanyl 25 mcg/hr transdermal 25 mcg transdermal Q72H #5 ea 11/20/23 patch melatonin 3 mg tablet 6 mg (2 x 3 mg) PO BEDTIME PRN 11/20/23 Insomnia #30 tabs quetiapine 25 mg tablet 25 mg PO BID #60 tabs 11/20/23 risperidone 2 mg tablet 2 mg PO BID #60 tabs 11/20/23 levofloxacin 250 mg tablet 250 mg PO DAILY #5 tabs 12/01/23 Allergies Allergy/AdvReac Type Severity Reaction Status Date / Time No Known Allergies Allergy Verified 11/30/23 20:07 Review of Systems 2 Review of Systems: Yes all other systems are reviewed and are negative [facility] Past Medical History Medical History Chronic hip pain Vascular dementia with behavior disturbance Social History Social History Comment: 1:1 sitter at bedside Smoked in Last 30 Days: No Use of substances other than those prescribed or required for medical reasons: No Advance Directives: Yes Advance Directives on File: Yes Advance Directives Date on File: 09/10/23 service: No Physical Exam ED Vital Signs: Vital Signs - 24 hr 11/30/23 20:05 11/30/23 22:53 11/30/23 23:58 Temperature 97.7 F 97.7 F Pulse Rate 72 70 72 Respiratory Rate 16 12 14 Blood Pressure 140/64 H 141/48 H Pulse Oximetry 97 100 98 Oxygen Delivery Method Room Air Room Air Room Air 12/01/23 00:13 12/01/23 00:28 12/01/23 00:43 Temperature Pulse Rate 73 85 84 Respiratory Rate 16 20 13 Blood Pressure 143/69 H 129/63 132/78 Pulse Oximetry 96 94 99 Oxygen Delivery Method Room Air Room Air 12/01/23 00:58 Temperature Pulse Rate 95 Respiratory Rate 13 Blood Pressure 132/78 Pulse Oximetry 99 Oxygen Delivery Method Room Air BMI result Body Mass Index 25.5 Const Other: The patient is somewhat chronically ill-appearing 88-year-old. She was in a cervical collar. She was yelling for help. She seemed poorly oriented consistent with dementia. HENMT Other: No obvious signs of trauma to the head or face. Eyes Other: Pupils are small round equal, conjunctivae her clear, extraocular movements intact. General: appearance normal, both eyes and all related structures Alignment and Position: alignment normal Neck Other: The patient reported significant posterior C-spine tenderness and said that she was having too much pain to move her neck. Resp Effort & Inspection: normal respiratory effort Auscultation: clear to auscultation bilaterally Cardio Rate: regular rate Rhythm: regular rhythm Heart sounds: S1 normal heart sound present and S2 normal heart sound present GI Other: Abdomen is soft and nontender Skin Other: Skin is dry and unremarkable. No bruising. Neuro Other: The patient was awake and yelling a great deal. She would calm down when directly addressed but would resume yelling when she felt she was not receiving attention. She seems disoriented in a manner consistent with dementia. Cranial nerves seem intact. She seems to move her extremities symmetrically. No focal findings. Extrem Other: No significant edema of the extremities. Moving her extremities with good range of motion of the joints. Medications Administered Generic Name Dose Route Start Last Admin Trade Name Freq PRN Reason Stop Dose Admin Levofloxacin 250 mg in 50 mls @ 50 mls/hr 12/01/23 02:22 12/01/23 02:37 Levaquin IV 12/01/23 03:21 50 mls/hr ONCE ONE Administration Discontinued Medications Generic Name Dose Route Start Last Admin Trade Name Freq PRN Reason Stop Dose Admin Levofloxacin 250 mg 12/01/23 02:07 12/01/23 02:37 Levofloxacin 250 Mg Tablet PO 12/01/23 02:08 Not Given ONCE ONE Olanzapine 10 mg 11/30/23 23:43 11/30/23 23:58 Olanzapine 10 Mg Vial IM 11/30/23 23:44 10 mg ONCE ONE Administration Medical Decision Making Medical Decision Making [facility] Narrative: The patient is an showed mental 88-year-old with a history of dementia and behavioral problems who was sent from the nursing facility where she has been for the last 10 days. Initially my impression was that the patient had possibly fallen and was complaining of neck pain. She had a negative head CT and a negative cervical spine CT. Later it was apparent that the custodial was concerned that the patient's degree of agitation had increased over the last couple of days. Therefore a medical workup was done. The medical workup is largely negative although a straight cath urinalysis shows urinalysis significantly suggestive of a possible UTI. The patient has had 2 recent positive urine cultures. The 1st of these on October 27 grew Citrobacter freundii and a 2nd on November 05 grew Pseudomonas aeruginosa. Because of the patient's significant agitation here she was given 10 mg of IM olanzapine. Perhaps the patient's worsening behaviors over the last day or 2 might be related to urinary tract infection although the patient is not showing any systemic signs of illness. She has no fever, no elevation of her white count, no left shift, and she has a normal CRP. The patient was given a dose of 250 mg of IV Levaquin in the emergency room (no oral Levaquin was available). My hope is that the patient's behaviors may be secondary to a UTI and the treatment of the UTI might improve her behaviors. I therefore think it is reasonable to let her go back to her nursing facility. Lab Data 12/01/23 00:04 12/01/23 00:04 Labs: Lab Results 12/01/23 Range/Units 00:04 WBC 7.0 (4.8-10.8) X10*3/uL RBC 3.95 L D (4.20-5.50) X10*6/uL Hgb 10.2 L D (12.0-16.0) g/dl Hct 32.7 L D (37.0-47.0) % MCV 82.8 (80.0-98.0) fL MCH 25.8 L (27.0-33.0) pg MCHC 31.2 (31.0-35.0) g/dl RDW 19.2 H (11.0-16.0) % Plt Count 273 (160-400) X10*3/uL MPV 10.6 (9.4-12.3) fL Immature Gran % (Auto) 0.3 (0.0-0.4) % Neut % (Auto) 48.6 (45-73) % Lymph % (Auto) 28.9 (20-40) % [place] % (Auto) 13.6 H (2-11) % Eos % (Auto) 7.7 H (0-4) % Baso % (Auto) 0.9 (0-2) % Lymph # (Auto) 2.0 (1.2-4.9) X10*3/uL [place] # (Auto) 1.0 (0.1-1.2) X10*3/uL Eos # (Auto) 0.5 H (0.0-0.4) X10*3/uL Baso # (Auto) 0.1 (0.0-0.2) X10*3/uL Abs Immat Gran (auto) 0.02 (0.00-0.03) X10*3/uL Absolute Neuts (auto) 3.4 (2.0-8.3) x10*3/uL Absolute Nucleated RBC 0.000 (0.0-0.012) X10*3/uL Nucleated RBC % (auto) 0.0 (0.0-0.2) /100WBC Sodium 143 (135-145) mmol/L Potassium 3.6 (3.3-5.1) mmol/L Chloride 109 H (96-108) mmol/L Carbon Dioxide 24 (22-29) mmol/L Anion Gap 14 (12-20) BUN 15 (9-16) mg/dL Creatinine 0.85 (0.5-1.4) mg/dL Estim Creat Clear Calc 39.1 Estimated GFR > 60 Random Glucose 103 (60-115) mg/dL Calcium 9.8 D (8.4-10.2) mg/dL Total Bilirubin 0.4 (0.0-1.0) mg/dL Direct Bilirubin 0.1 (0.0-0.5) mg/dL AST 15 (5-31) U/L ALT 11 (0-31) U/L Alkaline Phosphatase 59 (39-117) U/L C-Reactive Protein < 0.10 (< or = 0.50) mg/dL Total Protein 6.7 (6.5-8.0) g/dL Albumin 4.0 (3.5-5.0) g/dL Discharge Plan Discharge Clinical Impression: Fall, Urinary tract infection, Dementia Patient Disposition: er [facility] Additional Instructions: No sign of injury from the falls. A CT scan of the head and the cervical spine were negative. Her urinalysis suggests a possible urinary tract infection but she is not showing any signs of systemic illness. There is no fever or elevation of her white blood count her C-reactive protein. She has been started on levofloxacin (she has had Pseudomonas in her urine in the past). Please administer the levofloxacin once a day for 5 days. My hope is that if she has had worsening behaviors recently it may be related to her urinary tract infection. My hope is that behaviors may improve with treatment of her urinary tract infection. Please have her follow up with your regular provider. Return to the emergency room if worse. Prescriptions: New levofloxacin 250 mg tablet 250 mg PO DAILY Qty: 5 0RF No Action esomeprazole magnesium 40 mg capsule,delayed release(DR/EC) 40 mg PO DAILY quetiapine 25 mg Tablet 25 mg PO BID Qty: 60 0RF donepezil 5 mg Tablet 5 mg PO BEDTIME Qty: 30 0RF Antacid Ext Str (calcium carb) 300 mg (750 mg) Tablet,Chewable 2.5 tab PO Q4H PRN (Reason: Heartburn) Qty: 30 0RF melatonin 3 mg Tablet 6 mg PO BEDTIME PRN (Reason: Insomnia) Qty: 30 0RF risperidone 2 mg Tablet 2 mg PO BID Qty: 60 0RF fentanyl 25 mcg/hr Patch 72 Hour 25 mcg transdermal Q72H Qty: 5 0RF Rx Instructions: Partial Fill upon patient request. Referrals: Tori Simon Maringouin [Outside] Print Language: Swedish
[2023-11-30 22:53] VITALS: BP 141/48; PULSE 70; RESP 12; TEMP 36.5; O2SAT 100
--- NOTE | 2023-11-30 23:43 | ECG_ITS ---
Test Reason : ams Blood Pressure : / mmHG Vent. Rate : 068 BPM Atrial Rate : 068 BPM P-R Int : 150 ms QRS Dur : 070 ms QT Int : 410 ms P-R-T Axes : 025 036 058 degrees QTc Int : 435 ms Normal sinus rhythm Normal ECG When compared with ECG of 28-OCT-2023 13:39, No significant change was found Referred By: Fletcher Waller Electronically Signed By:KATIE CERVANTES
--- NOTE | 2023-11-30 23:55 | PC.NURSE ---
pt screaming out and asking for help, pt not redirectable at this time. plan for IM medication, labs and ekg.
[2023-11-30 23:58] VITALS: PULSE 72; RESP 14; O2SAT 98
[2023-11-30] MEDS: OLANZapine 10 MG VIAL IM (23:58)
[2023-12-01 00:08] LABS: MANUAL DIFF FLAG NO
[2023-12-01 00:09] LABS: Basophils Absolute Auto 0.1 X10*3/uL (0.0-0.2); Basophils Percent Auto 0.9 % (0-2); Eosinophils Absolute Auto 0.5 X10*3/uL (0.0-0.4); Eosinophils Percent Auto 7.7 % (0-4); Hematocrit 32.7 % (37.0-47.0); Hemoglobin 10.2 g/dl (12.0-16.0); Imm Gran Abs Auto 0.02 X10*3/uL (0.00-0.03); Imm Gran Pct Auto 0.3 % (0.0-0.4); Lymphocytes Percent Auto 28.9 % (20-40); Mean Corpuscular HGB Conc 31.2 g/dl (31.0-35.0); Mean Corpuscular Hemoglobin 25.8 pg (27.0-33.0); Mean Corpuscular Volume 82.8 fL (80.0-98.0); Mean Platelet Volume 10.6 fL (9.4-12.3); Monocytes Percent Auto 13.6 % (2-11); Neutrophils Absolute Auto 3.4 x10*3/uL (2.0-8.3); Neutrophils Percent Auto 48.6 % (45-73); Platelet Count 273 X10*3/uL (160-400); Red Blood Count 3.95 X10*6/uL (4.20-5.50); Red Cell Distribution Width 19.2 % (11.0-16.0)
[2023-12-01 00:13] VITALS: BP 143/69; PULSE 73; RESP 16; O2SAT 96
[2023-12-01 00:21] LABS: Alanine Aminotransferase 11 U/L (0-31); Alkaline Phosphatase 59 U/L (39-117); Anion Gap 14 (12-20); Aspartate Amino Transferase 15 U/L (5-31); Bilirubin Direct 0.1 mg/dL (0.0-0.5); Bilirubin Total 0.4 mg/dL (0.0-1.0); Blood Urea Nitrogen 15 mg/dL (9-16); C Reactive Protein < 0.10 mg/dL (< or = 0.50); Calcium 9.8 mg/dL (8.4-10.2); Carbon Dioxide 24 mmol/L (22-29); Chloride 109 mmol/L (96-108); Creatinine Clr Calc Pharmacy 39.1; Estimated Glomerular Filt Rate > 60; Glucose Random 103 mg/dL (60-115); Potassium 3.6 mmol/L (3.3-5.1); Sodium 143 mmol/L (135-145); Total Protein 6.7 g/dL (6.5-8.0)
[2023-12-01 00:28] VITALS: BP 129/63; PULSE 85; RESP 20; O2SAT 94
[2023-12-01 00:43] VITALS: BP 132/78; PULSE 84; RESP 13; O2SAT 99
[2023-12-01 00:58] VITALS: BP 132/78; PULSE 95; RESP 13; O2SAT 99
--- NOTE | 2023-12-01 01:01 | PC.NURSE ---
pt agitated and screaming help. unable to redirect pt. aware. camera continues in place.
[2023-12-01] MEDS: levoFLOXacin/D5W 250 MG/50 ML PIGGYBACK 50 MG IV (02:37)
--- NOTE | 2023-12-01 03:27 | PC.NURSE ---
report given to Jennifer TORIBIO at [facility].
[2023-12-01 03:39] VITALS: BP 139/89; PULSE 85; RESP 18; TEMP 36.4; O2SAT 96
[2023-12-01 03:41] VITALS: BP 139/89; PULSE 85; RESP 18; TEMP 36.4; O2SAT 96
== END 2023-12-01 03:42 | disposition skilled nursing facility (03) ==
PROVIDERS: Emergency Provider Emergency Medicine; PCP Family Medicine
DX: S19.9XXA Unspecified injury of neck, initial encounter (principal); N39.0 Urinary tract infection, site not specified; F03.911 Unspecified dementia, unspecified severity, with agitation; F05 Delirium due to known physiological condition; R51.9 Headache, unspecified; M54.2 Cervicalgia; X58.XXXA Exposure to other specified factors, initial encounter; Y93.89 Activity, other specified; Y92.89 Other specified places as the place of occurrence of the external cause; Y99.8 Other external cause status; Z79.899 Other long term (current) drug therapy
CPT/HCPCS: 36415; 51702; 51798; 70450; 72125; 80048; 80076; 85025; 86140; 93005; 96372; 99285; J1956; J2359

== ENCOUNTER 2023-12-06 08:50 | Emergency (ER) | payer MEDICARE, MEDICAID, SELFPAY ==
--- NOTE | ~2023-12-06 | XR_ITS ---
EXAMINATION: XR WRIST, RIGHT CLINICAL INFORMATION: 88-year-old female with previous pain and bruising in right wrist COMPARISON: None available. TECHNIQUE: PA, lateral, and oblique views of the right wrist. FINDINGS: There is diffuse osteopenia, narrowing of the right radiocarpal joint and ulnar plus variance. There is healed fracture deformity of the distal radius but no evidence of acute fractures. Soft tissues are unremarkable. There are degenerative changes of the first carpometacarpal joint. XR/XR wrist RT min 3V IMPRESSION: No acute fracture is seen. Changes of osteoarthritis and healed fracture deformity of the distal radius, possibly ulnar and ulnar plus variance. Electronically signed by: Dao Ruiz MD 12/06/2023 09:26 AM EDT
--- NOTE | 2023-12-06 09:01 | ECG_ITS ---
Test Reason : WEAKNESS Blood Pressure : / mmHG Vent. Rate : 084 BPM Atrial Rate : 084 BPM P-R Int : 158 ms QRS Dur : 084 ms QT Int : 360 ms P-R-T Axes : 013 009 030 degrees QTc Int : 425 ms Normal sinus rhythm Normal ECG When compared with ECG of 01-DEC-2023 00:03, No significant change was found Referred By: Sayra Cruz Electronically Signed By:KATIE CERVANTES
[2023-12-06 09:04] VITALS: BP 105/95; BP 86/50; PULSE 87; PULSE 91; RESP 18; TEMP 37.1; O2SAT 97; O2SAT 98; BMI 23.0
[2023-12-06 09:08] VITALS: BP 114/61; PULSE 93; RESP 20; TEMP 36.5; O2SAT 98
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
--- NOTE | 2023-12-06 09:55 | PC.NURSE ---
This RN called [facility] to assess if she had gotten any of her morning medication, and or if they could fax the medication list as well so we can order them. MD ware
[2023-12-06 09:59] LABS: MANUAL DIFF FLAG NO
[2023-12-06 10:11] LABS: Basophils Percent Auto 0.5 % (0-2); Eosinophils Absolute Auto 0.2 X10*3/uL (0.0-0.4); Eosinophils Percent Auto 2.3 % (0-4); Hematocrit 28.3 % (37.0-47.0); Hemoglobin 8.6 g/dl (12.0-16.0); Imm Gran Abs Auto 0.04 X10*3/uL (0.00-0.03); Imm Gran Pct Auto 0.5 % (0.0-0.4); Lymphocytes Absolute Auto 0.8 X10*3/uL (1.2-4.9); Lymphocytes Percent Auto 10.6 % (20-40); Mean Corpuscular HGB Conc 30.4 g/dl (31.0-35.0); Mean Corpuscular Hemoglobin 25.2 pg (27.0-33.0); Mean Platelet Volume 11.3 fL (9.4-12.3); Monocytes Absolute Auto 0.9 X10*3/uL (0.1-1.2); Monocytes Percent Auto 11.5 % (2-11); Neutrophils Absolute Auto 5.9 x10*3/uL (2.0-8.3); Neutrophils Percent Auto 74.6 % (45-73); Platelet Count 243 X10*3/uL (160-400); Red Blood Count 3.41 X10*6/uL (4.20-5.50); Red Cell Distribution Width 19.6 % (11.0-16.0); White Blood Count 7.9 X10*3/uL (4.8-10.8)
[2023-12-06 10:21] LABS: Lactic Acid 2.2 mmol/L (0.5-2.0)
[2023-12-06 10:22] LABS: Alanine Aminotransferase 8 U/L (0-31); Albumin Level 3.5 g/dL (3.5-5.0); Alkaline Phosphatase 51 U/L (39-117); Anion Gap 11 (12-20); Aspartate Amino Transferase 12 U/L (5-31); Bilirubin Direct < 0.2 mg/dL (0.0-0.5); Bilirubin Total 0.2 mg/dL (0.0-1.0); Blood Urea Nitrogen 15 mg/dL (9-16); Calcium 8.9 mg/dL (8.4-10.2); Carbon Dioxide 24 mmol/L (22-29); Chloride 109 mmol/L (96-108); Creatinine Clr Calc Pharmacy 36.8; Estimated Glomerular Filt Rate 60; Glucose Random 145 mg/dL (60-115); Magnesium 1.7 mg/dL (1.6-2.6); Potassium 3.7 mmol/L (3.3-5.1); Sodium 140 mmol/L (135-145); Total Protein 5.8 g/dL (6.5-8.0)
[2023-12-06] MEDS: Lactated Ringers 1,000 ML 999 ML IV (10:54)
[2023-12-06] MEDS: risperiDONE 2 MG TABLET PO (11:05)
[2023-12-06] MEDS: QUEtiapine Fumarate 25 MG TABLET PO (11:05)
[2023-12-06 11:07] LABS: Influenza A PCR NEGATIVE (Negative); Influenza B PCR NEGATIVE (Negative); Resp Syncy Virus RNA Qual PCR NEGATIVE (Negative); SARS COV2 PCR INHOUSE NEGATIVE (Negative)
[2023-12-06 11:46] LABS: Appearance Urine Clear; Color Urine Yellow; Glucose Urine UA Negative (Negative); Leukocyte Esterase Urine Trace (Negative); Nitrite Urine Negative (Negative); PH 5.5 (5.0-9.0); UMIC TRIGGER UACC YES; Urine Blood Negative (Negative); Urine Ketones Negative (Negative); Urine Protein Negative (Neg-Trace)
[2023-12-06 11:49] LABS: Bacteria Urine Trace (None Seen); Hyaline Casts Urine 0-2 /LPF (0-2); RBC Urine 0-2 /HPF (0-2); Squamous Epithelial Cell Urine 0-2 /HPF (0-2); WBC Urine 0-5 /HPF (0-5)
[2023-12-06 11:57] LABS: Reflex Lactate? Lactic Acid Added
--- NOTE | 2023-12-06 12:02 | PC.NURSE ---
This RN and RN Marcelina ambulated pt to bathroom with walker. Pt unsteady gait. Repositioned back into bed.
[2023-12-06 12:41] LABS: ~Lactic Acid-LAB USE ONLY 1.9 mmol/L (0.5-2.0)
--- NOTE | 2023-12-06 12:41 | MHC.EDTECH ---
Patient refused to have vitals monitored.
[2023-12-06 13:26] VITALS: BP 134/57; PULSE 84; RESP 16; TEMP 36.8; O2SAT 98
[2023-12-06 16:50] VITALS: BP 134/57; PULSE 84; RESP 18; TEMP 36.8; O2SAT 98
== END 2023-12-06 16:51 | disposition skilled nursing facility (03) ==
PROVIDERS: Emergency Provider Emergency Medicine; PCP Internal Medicine
DX: R45.1 Restlessness and agitation (principal); F01.511 Vascular dementia, unspecified severity, with agitation; M25.531 Pain in right wrist; Z03.818 Encounter for observation for suspected exposure to other biological agents ruled out; Z79.899 Other long term (current) drug therapy
CPT/HCPCS: 0241U; 36415; 51701; 73110; 80048; 80076; 81001; 83605; 83735; 85025; 93005; 96360; 96361; 99284; 99285; J7120

== ENCOUNTER 2023-12-11 06:19 | Emergency (ER) | payer MEDICARE, MEDICAID, SELFPAY ==
[2023-12-11 06:24] VITALS: BP 117/64; BP 132/82; PULSE 82; PULSE 83; RESP 16; TEMP 36.8; O2SAT 96; O2SAT 97; BMI 26.1
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
--- OUTSIDE RECORDS SUMMARY | 2023-12-11 07:16 | XMS_ITS | Continuity of Care Document ---
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 Role Phone Not on Staff, PCP Primary Care Physician Unavail able Encounter [facility] Date(s): 12/08/23 - 12/09/[address] [id number] Discharge Disposition: A-Transfer SNF Attending Physician: Prasanna Guillaume MD Admitting Physician: Lida Low MD Referring Physician: Not on Staff, Referring MD Allergies, Adverse Reactions, Alerts No Known Allergies Medications Dilaudid Inj 0.5 mg, Injection, IV Push Slowly, Once, PRN for Pain , Severe, Routine, 12/09/23 10:58:00 EDT Start Date: 12/09/23 Stop Date: 12/09/23 Status: Completed donepezil 5 mg oral tablet 5 mg, 1, tablet, By Mouth, Daily at bedtime, # 90 tablet, Refills 0, Maintenance, 12/09/23 12:32:00EDT, Partial fill upon patient request if the prescription is for a schedule II opioid drug. Start Date: 12/09/23 Status: Ordered fentaNYL 25 mcg/hr transdermal film, extended release 1 patch, Topically, Every 72 hours, 0 Refills, Maintenance, 12/09/23 12:31:00 EDT, Patch, Partial fill upon patient request if the prescription is for a schedule II opioid drug. Start Date: 12/09/23 Status: Ordered olanzapine 2.5 mg oral tablet 2.5 mg, 1, tablet, By Mouth, Daily, # 30 tablet, Refills 0, Tot. Refills 0, Maintenance, 12/09/23 12:33:00 EDT, Do Not Route, give at 4 pm Start Date: 12/09/23 Status: Ordered olanzapine 2.5 mg oral tablet 5 mg, 2, tablet, By Mouth, Daily at bedtime, # 60 tablet, Refills 0, Tot. Refills 0, Maintenance, 12/09/23 12:34:00 EDT, Do Not Route, Give at 8 pm Start Date: 12/09/23 Stop Date: 01/08/24 Status: Ordered olanzapine 5 mg oral tablet 2.5 mg, By Mouth, 2 times a day, PRN, moderate, Refills 0, Maintenance, Agitation, 12/09/23 12:35:00 EDT, Partial fill upon patient request if the prescription is for a schedule II opioid drug. Start Date: 12/09/23 Status: Ordered risperiDONE 1 mg oral tablet 1 mg, 1, tablet, By Mouth, Daily, # 30 tablet, Refills 0, Maintenance, 12/09/23 12:31:00 EDT, Partial fill upon patient request if the prescription is for a schedule II opioid drug. Start Date: 12/09/23 Status: Ordered Tylenol 325 mg oral tablet 975 mg, By Mouth, 3 times a day, Refills 0, Maintenance, 12/09/23 12:35:00 EDT, Partial fill upon patient request if the prescription is for a schedule II opioid drug. Start Date: 12/09/23 Status: Ordered Problem List Condition Confirmation Course Effective Dates Status Health [facility] Informant Fall Confirmed Active Results Radiology Reports (Most Recent Ten) * Exam Date Time Procedure Performing Provider Status 12/09/23 9:53 AM XR Femur 2 Views Right Julio Cesar Almanzar; Auth (Verified) Notes: (XR Femur 2 Views Right) Reason For Exam: with Pain;Trauma RESULT: Femur 2 Views Right Pelvis 1 or 2 Views, Femur 2 Views Right REASON: Trauma; With Pain; Clinical Question(s): Fracture COMPARISON: None. FINDINGS: There is no fracture or dislocation. Severe right hip osteoarthritis. Degenerative changes of the visualized lower lumbar spine. Normal soft tissues. IMPRESSION: No evidence of acute osseous abnormality. Severe osteoarthritis of the right hip. WSN: [id number] Ordering Physician: Sugey Dai Dictated By: Carlos Albarado MD Dictated Date/Time: 12/09/23 11:22 a Reviewed By: Carlos Albarado MD Signed By: Carlos Albarado MD Signed Date/Time: 12/09/23 11:22 am Transcribed By: SUNI Transcribed Date/Time: 12/09/23 11:21 am * Exam Date Time Procedure Performing Provider Status 12/09/23 9:53 AM Pelvis 1 or 2 Views Julio Cesar Almanzar; Sarah quan (Verified) Notes: (Pelvis 1 or 2 Views) Reason For Exam: With Pain;Trauma RESULT: Pelvis 1 or 2 Views Pelvis 1 or 2 Views, Femur 2 Views Right REASON: Trauma; With Pain; Clinical Question(s): Fracture COMPARISON: None. FINDINGS: There is no fracture or dislocation. Severe right hip osteoarthritis. Degenerative changes of the visualized lower lumbar spine. Normal soft tissues. IMPRESSION: No evidence of acute osseous abnormality. Severe osteoarthritis of the right hip. WSN: [id number] Ordering Physician: Sugey Dai Dictated By: Carlos Albarado MD Dictated Date/Time: 12/09/23 11:22 a Reviewed By: Carlos Albarado MD Signed By: Carlos Albarado MD Signed Date/Time: 12/09/23 11:22 am Transcribed By: SUNI Transcribed Date/Time: 12/09/23 11:21 am * Exam Date Time Procedure Performing Provider Status 12/08/23 1:16 PM Wrist Comp Min 3 Views Right Marcela Daiglea; Arlen (Verified) Notes: (Wrist Comp Min 3 Views Right) Reason For Exam: with Pain;Trauma RESULT: Wrist Comp Min 3 Views Right Wrist Comp Min 3 Views Right CLINICAL INDICATION: Reason: Trauma; with Pain; Clinical Question(s): Fracture. TECHNIQUE: AP, oblique, lateral, and navicular views. COMPARISON: None. FINDINGS: There is deformity of the distal radius from old healed fracture. This was presumably an impacted distal fracture without clear involvement of articular surface. 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 There is no acute fracture.. There is no focal bony lesion. 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 Moderate osteoarthritis of the carpal-first metacarpal joint. IMPRESSION: 1. No acute fracture. 2. Substantial deformity of distal radius due to old healed fracture. 3. Osteoarthritis base of thumb. WSN: [id number] Ordering Physician: Jelena Fitzgerald Dictated By: Gary Dwyer MD Dictated Date/Time: 12/08/23 1:42 pm Reviewed By: Gary Dwyer MD Signed By: Gary Dwyer MD Signed Date/Time: 12/08/23 1:42 pm Transcribed By: SUNI Transcribed Date/Time: 12/08/23 1:39 pm * Exam Date Time Procedure Performing Provider Status 12/08/23 1:[address] Lumbar Spine W/ Contrast Jean Carlos , N icole; Auth (Verified) Notes: (CT Lumbar Spine W/ Contrast) Reason For Exam: Spine fracture, lumbar, traumatic;Other: RESULT: CT Lumbar Spine W/ Contrast CT Chest W/ Contrast, CT Abd/Pelvis W/ IV Contrast Only, CT Thoracic Spine W/ Contrast, CT Lumbar Spine W/ Contrast INDICATION: Reason: Other:; Chest trauma, blunt; Clinical Question(s): Other:; Aortic hilar injury Abdominal trauma, solid organ injury, perforation free fluid. Assess for spine fracture or dislocation. TECHNIQUE: Helical CT scan of the chest, abdomen, and pelvis with IV contrast, formatted in 3 planes. The original dataset was reconstructed with a small field of view around the thoracic and lumbar spine utilizing soft tissue and bone algorithm reconstructions in 3 planes. 100 cc of Omnipaque 300 was administered intravenously. This study was performed without oral contrast. Weight-based protocol was performed using automatic exposure control. CTDIvol Body: 7.90 mGy, DLP Body: 561 mGy*cm. COMPARISON: None. FINDINGS: Pre Owned Sales Manager view findings, lines and tubes: None. Trachea and airways: Patent without evidence of tracheal or endobronchial lesion. Lungs and pleura: Diffuse mosaic pulmonary attenuation, representing combination hypoaeration, air trapping, atelectasis. Trace bilateral pleural effusions. No pneumothorax. Mediastinum and dutch: No mass or hematoma. No mediastinal or hilar lymphadenopathy. No esophageal abnormality. Enlarged heterogeneous LEFT thyroid lobe extending substernal. Heart: Heart is normal in size. No pericardial effusion. Aorta: Mild vascular calcification but no aneurysm. Pulmonary arteries: Normal caliber. No evidence of pulmonary embolism on this study performed without angiographic technique. Chest wall soft tissues: No acute abnormality. Diaphragm: Intact. Liver: Normal in attenuation and morphology. No suspicious lesion. Gallbladder: No CT evidence of gallbladder pathology. No calcified gallstones or wall thickening. Bile ducts: No biliary ductal dilation. Spleen: Normal in size. No focal lesion. Pancreas: No suspicious lesion or ductal dilatation. Adrenal glands: No nodule. Kidneys and ureters: No hydronephrosis, stone, or suspicious lesion. 6 cm LEFT renal simple cyst. Bladder: Normal. No wall thickening or surrounding stranding. Reproductive organs: Normal uterus and adnexa. Stomach, small bowel, and large bowel: Normal bowel caliber. No bowel obstruction. Moderate amount of colonic stool. No surrounding inflammatory changes. No acute bowel process. Appendix: No evidence of acute appendicitis. Peritoneum and retroperitoneum: A few rim calcified foci of fat in the RIGHT lower quadrant, likelyrepresenting foci of chronic fat necrosis. No ascites or pneumoperitoneum. No omental or mesentericlesions. Lymph nodes: No enlarged lymph nodes. Blood vessels: Mild vascular calcifications but no aneurysm. No evidence of venous thrombosis. Abdominal and pelvic wall soft tissues: There is a tiny fat-containing umbilical hernia. 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 Moderate bilateral glenohumeral degenerative arthrosis. No acute fractures. No acute thoracic or lumbar spine fracture. Moderate to severe thoracic and lumbar spine multilevel degenerative disc narrowing with anterior and posterior marginal endplate spurring. IMPRESSION: No acute traumatic findings in the chest, abdomen and pelvis. No acute thoracic or lumbar spine fractures. WSN: [id number] Ordering Physician: Jelena Fitzgerald Dictated By: Caity Sullivan MD Dictated Date/Time: 12/08/23 1:33 pm Reviewed By: Caity Sullivan MD Signed By: Caity Sullivan MD Signed Date/Time: 12/08/23 1:33 pm Transcribed By: SUNI Transcribed Date/Time: 12/08/23 1:21 pm * Exam Date Time Procedure Performing Provider Status 12/08/23 1:[address] Thoracic Spine W/ Contrast Bharati Evangelista; Auth (Verified) Notes: (CT Thoracic Spine W/ Contrast) Reason For Exam: Spine fracture, thoracic, traumatic;Other: RESULT: CT Thoracic Spine W/ Contrast CT Chest W/ Contrast, CT Abd/Pelvis W/ IV Contrast Only, CT Thoracic Spine W/ Contrast, CT Lumbar Spine W/ Contrast INDICATION: Reason: Other:; Chest trauma, blunt; Clinical Question(s): Other:; Aortic hilar injury Abdominal trauma, solid organ injury, perforation free fluid. Assess for spine fracture or dislocation. TECHNIQUE: Helical CT scan of the chest, abdomen, and pelvis with IV contrast, formatted in 3 planes. The original dataset was reconstructed with a small field of view around the thoracic and lumbar spine utilizing soft tissue and bone algorithm reconstructions in 3 planes. 100 cc of Omnipaque 300 was administered intravenously. This study was performed without oral contrast. Weight-based protocol was performed using automatic exposure control. CTDIvol Body: 7.90 mGy, DLP Body: 561 mGy*cm. COMPARISON: None. FINDINGS: Pre Owned Sales Manager view findings, lines and tubes: None. Trachea and airways: Patent without evidence of tracheal or endobronchial lesion. Lungs and pleura: Diffuse mosaic pulmonary attenuation, representing combination hypoaeration, air trapping, atelectasis. Trace bilateral pleural effusions. No pneumothorax. Mediastinum and dutch: No mass or hematoma. No mediastinal or hilar lymphadenopathy. No esophageal abnormality. Enlarged heterogeneous LEFT thyroid lobe extending substernal. Heart: Heart is normal in size. No pericardial effusion. Aorta: Mild vascular calcification but no aneurysm. Pulmonary arteries: Normal caliber. No evidence of pulmonary embolism on this study performed without angiographic technique. Chest wall soft tissues: No acute abnormality. Diaphragm: Intact. Liver: Normal in attenuation and morphology. No suspicious lesion. Gallbladder: No CT evidence of gallbladder pathology. No calcified gallstones or wall thickening. Bile ducts: No biliary ductal dilation. Spleen: Normal in size. No focal lesion. Pancreas: No suspicious lesion or ductal dilatation. Adrenal glands: No nodule. Kidneys and ureters: No hydronephrosis, stone, or suspicious lesion. 6 cm LEFT renal simple cyst. Bladder: Normal. No wall thickening or surrounding stranding. Reproductive organs: Normal uterus and adnexa. Stomach, small bowel, and large bowel: Normal bowel caliber. No bowel obstruction. Moderate amount of colonic stool. No surrounding inflammatory changes. No acute bowel process. Appendix: No evidence of acute appendicitis. Peritoneum and retroperitoneum: A few rim calcified foci of fat in the RIGHT lower quadrant, likelyrepresenting foci of chronic fat necrosis. No ascites or pneumoperitoneum. No omental or mesentericlesions. Lymph nodes: No enlarged lymph nodes. Blood vessels: Mild vascular calcifications but no aneurysm. No evidence of venous thrombosis. Abdominal and pelvic wall soft tissues: There is a tiny fat-containing umbilical hernia. 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 Moderate bilateral glenohumeral degenerative arthrosis. No acute fractures. No acute thoracic or lumbar spine fracture. Moderate to severe thoracic and lumbar spine multilevel degenerative disc narrowing with anterior and posterior marginal endplate spurring. IMPRESSION: No acute traumatic findings in the chest, abdomen and pelvis. No acute thoracic or lumbar spine fractures. WSN: [id number] Ordering Physician: Jelena Fitzgerald Dictated By: Caity Sullivan MD Dictated Date/Time: 12/08/23 1:33 pm Reviewed By: Caity Sullivan MD Signed By: Caity Sullivan MD Signed Date/Time: 12/08/23 1:33 pm Transcribed By: SUNI Transcribed Date/Time: 12/08/23 1:21 pm * Exam Date Time Procedure Performing Provider Status 12/08/23 1:[address] Abd/Pelvis W/ IV Contrast Only Bharati Bailon rd; Auth (Verified) Notes: (CT Abd/Pelvis W/ IV Contrast Only) Reason For Exam: Abd trauma, blunt;Other: RESULT: CT Abd/Pelvis W/ IV Contrast Only CT Chest W/ Contrast, CT Abd/Pelvis W/ IV Contrast Only, CT Thoracic Spine W/ Contrast, CT Lumbar Spine W/ Contrast INDICATION: Reason: Other:; Chest trauma, blunt; Clinical Question(s): Other:; Aortic hilar injury Abdominal trauma, solid organ injury, perforation free fluid. Assess for spine fracture or dislocation. TECHNIQUE: Helical CT scan of the chest, abdomen, and pelvis with IV contrast, formatted in 3 planes. The original dataset was reconstructed with a small field of view around the thoracic and lumbar spine utilizing soft tissue and bone algorithm reconstructions in 3 planes. 100 cc of Omnipaque 300 was administered intravenously. This study was performed without oral contrast. Weight-based protocol was performed using automatic exposure control. CTDIvol Body: 7.90 mGy, DLP Body: 561 mGy*cm. COMPARISON: None. FINDINGS: Pre Owned Sales Manager view findings, lines and tubes: None. Trachea and airways: Patent without evidence of tracheal or endobronchial lesion. Lungs and pleura: Diffuse mosaic pulmonary attenuation, representing combination hypoaeration, air trapping, atelectasis. Trace bilateral pleural effusions. No pneumothorax. Mediastinum and dutch: No mass or hematoma. No mediastinal or hilar lymphadenopathy. No esophageal abnormality. Enlarged heterogeneous LEFT thyroid lobe extending substernal. Heart: Heart is normal in size. No pericardial effusion. Aorta: Mild vascular calcification but no aneurysm. Pulmonary arteries: Normal caliber. No evidence of pulmonary embolism on this study performed without angiographic technique. Chest wall soft tissues: No acute abnormality. Diaphragm: Intact. Liver: Normal in attenuation and morphology. No suspicious lesion. Gallbladder: No CT evidence of gallbladder pathology. No calcified gallstones or wall thickening. Bile ducts: No biliary ductal dilation. Spleen: Normal in size. No focal lesion. Pancreas: No suspicious lesion or ductal dilatation. Adrenal glands: No nodule. Kidneys and ureters: No hydronephrosis, stone, or suspicious lesion. 6 cm LEFT renal simple cyst. Bladder: Normal. No wall thickening or surrounding stranding. Reproductive organs: Normal uterus and adnexa. Stomach, small bowel, and large bowel: Normal bowel caliber. No bowel obstruction. Moderate amount of colonic stool. No surrounding inflammatory changes. No acute bowel process. Appendix: No evidence of acute appendicitis. Peritoneum and retroperitoneum: A few rim calcified foci of fat in the RIGHT lower quadrant, likelyrepresenting foci of chronic fat necrosis. No ascites or pneumoperitoneum. No omental or mesentericlesions. Lymph nodes: No enlarged lymph nodes. Blood vessels: Mild vascular calcifications but no aneurysm. No evidence of venous thrombosis. Abdominal and pelvic wall soft tissues: There is a tiny fat-containing umbilical hernia. 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 Moderate bilateral glenohumeral degenerative arthrosis. No acute fractures. No acute thoracic or lumbar spine fracture. Moderate to severe thoracic and lumbar spine multilevel degenerative disc narrowing with anterior and posterior marginal endplate spurring. IMPRESSION: No acute traumatic findings in the chest, abdomen and pelvis. No acute thoracic or lumbar spine fractures. WSN: [id number] Ordering Physician: Jelena Fitzgerald Dictated By: Caity Sullivan MD Dictated Date/Time: 12/08/23 1:33 pm Reviewed By: Caity Sullivan MD Signed By: Caity Sullivan MD Signed Date/Time: 12/08/23 1:33 pm Transcribed By: SUNI Transcribed Date/Time: 12/08/23 1:21 pm * Exam Date Time Procedure Performing Provider Status 12/08/23 1:[address] Chest W/ Contrast Jean Carlos Bharati; Auth (Verified) Notes: (CT Chest W/ Contrast) Reason For Exam: Chest trauma, blunt;Other: RESULT: CT Chest W/ Contrast CT Chest W/ Contrast, CT Abd/Pelvis W/ IV Contrast Only, CT Thoracic Spine W/ Contrast, CT Lumbar Spine W/ Contrast INDICATION: Reason: Other:; Chest trauma, blunt; Clinical Question(s): Other:; Aortic hilar injury Abdominal trauma, solid organ injury, perforation free fluid. Assess for spine fracture or dislocation. TECHNIQUE: Helical CT scan of the chest, abdomen, and pelvis with IV contrast, formatted in 3 planes. The original dataset was reconstructed with a small field of view around the thoracic and lumbar spine utilizing soft tissue and bone algorithm reconstructions in 3 planes. 100 cc of Omnipaque 300 was administered intravenously. This study was performed without oral contrast. Weight-based protocol was performed using automatic exposure control. CTDIvol Body: 7.90 mGy, DLP Body: 561 mGy*cm. COMPARISON: None. FINDINGS: Pre Owned Sales Manager view findings, lines and tubes: None. Trachea and airways: Patent without evidence of tracheal or endobronchial lesion. Lungs and pleura: Diffuse mosaic pulmonary attenuation, representing combination hypoaeration, air trapping, atelectasis. Trace bilateral pleural effusions. No pneumothorax. Mediastinum and dutch: No mass or hematoma. No mediastinal or hilar lymphadenopathy. No esophageal abnormality. Enlarged heterogeneous LEFT thyroid lobe extending substernal. Heart: Heart is normal in size. No pericardial effusion. Aorta: Mild vascular calcification but no aneurysm. Pulmonary arteries: Normal caliber. No evidence of pulmonary embolism on this study performed without angiographic technique. Chest wall soft tissues: No acute abnormality. Diaphragm: Intact. Liver: Normal in attenuation and morphology. No suspicious lesion. Gallbladder: No CT evidence of gallbladder pathology. No calcified gallstones or wall thickening. Bile ducts: No biliary ductal dilation. Spleen: Normal in size. No focal lesion. Pancreas: No suspicious lesion or ductal dilatation. Adrenal glands: No nodule. Kidneys and ureters: No hydronephrosis, stone, or suspicious lesion. 6 cm LEFT renal simple cyst. Bladder: Normal. No wall thickening or surrounding stranding. Reproductive organs: Normal uterus and adnexa. Stomach, small bowel, and large bowel: Normal bowel caliber. No bowel obstruction. Moderate amount of colonic stool. No surrounding inflammatory changes. No acute bowel process. Appendix: No evidence of acute appendicitis. Peritoneum and retroperitoneum: A few rim calcified foci of fat in the RIGHT lower quadrant, likelyrepresenting foci of chronic fat necrosis. No ascites or pneumoperitoneum. No omental or mesentericlesions. Lymph nodes: No enlarged lymph nodes. Blood vessels: Mild vascular calcifications but no aneurysm. No evidence of venous thrombosis. Abdominal and pelvic wall soft tissues: There is a tiny fat-containing umbilical hernia. 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 Moderate bilateral glenohumeral degenerative arthrosis. No acute fractures. No acute thoracic or lumbar spine fracture. Moderate to severe thoracic and lumbar spine multilevel degenerative disc narrowing with anterior and posterior marginal endplate spurring. IMPRESSION: No acute traumatic findings in the chest, abdomen and pelvis. No acute thoracic or lumbar spine fractures. WSN: [id number] Ordering Physician: Jelena Fitzgerald Dictated By: Caity Sullivan MD Dictated Date/Time: 12/08/23 1:33 pm Reviewed By: Caity Sullivan MD Signed By: Caity Sullivan MD Signed Date/Time: 12/08/23 1:33 pm Transcribed By: SUNI Transcribed Date/Time: 12/08/23 1:21 pm * Exam Date Time Procedure Performing Provider Status 12/08/23 12:[address] Maxilloface W/O Contrast Bharati Evangelista; Arlen (Verified) Notes: (CT Maxilloface W/O Contrast) Reason For Exam: Facial trauma, blunt;Other: RESULT: CT Maxilloface W/O Contrast CT of the head, cervical spine and facial bones dated December 08, 2023. No prior studies are available. HISTORY: Pain secondary to trauma. FINDINGS: CT of the head was performed with multislice acquisition from the foramen magnum through the vertex. No intravenous contrast material was utilized. Axial, coronal, and sagittal reconstruction was performed. A weight based protocol using automatic tube modulation was used to optimize exposure parameters. Examination of the posterior fossa shows a normal size midline fourth ventricle. No mass, hemorrhage, or abnormal extra-axial fluid collection is identified. Supratentorially, the lateral and third ventricles are normal in size, contour and position. No mass, hemorrhage, or abnormal extra-axial fluid collection is identified. Some minimal sulcal prominence is noted. The mendoza-white matter differentiation is well preserved. No hyperdense vessel or loss of the insular ribbon is appreciated. Visualized osseous structures, paranasal sinuses and orbits shows minimal mucosal thickening in theright sphenoid sinus and within both ethmoid sinuses right greater than left. The mastoid air cellsare clear. Hyperostosis frontalis interna is noted. Evaluation of the cervical spine was performed from the skull base through the apices of the lungs with axial, coronal, and sagittal reconstruction. A weight based protocol using automatic tube modulation was used to optimize exposure parameters. The vertebral bodies are normal in height. There is loss of intervertebral disc space height and osteophyte formation throughout. The facet joints align normally. No locked or perched facets are seen. Craniocervical articulation is anatomic. Prevertebral soft tissues are within normal limits. No epidural hematoma is seen. Evaluation of the facial bones was performed with multislice acquisition through the facial bones. Axial, coronal, and sagittal reconstruction was performed. No intravenous contrast material was utilized. A weight based protocol using automatic tube modulation was used to optimize exposure parameters. This examination shows no evidence of fracture. The bony neural septum is midline. Inez bullosa is noted in the middle turbinates. Minimal subacute to chronic inflammatory changes are demonstrated in the right maxillary and bilateral ethmoid sinuses. The ostiomeatal complexes are patent bilaterally. The bony orbits are intact. The globes are symmetric. There is some increased soft tissue inflammation in the region of the left cheek. The left thyroid shows a 3.5 cm nodule measuring 35 Hounsfield units. A product support sales representative image is 85 of series 308. As visualized, the apices of the lungs show some biapical scarring right greater than left. IMPRESSION: No evidence of acute intracranial abnormality. Degenerative changes in the spine without evidence of fracture or dislocation. No evidence of fracture or dislocation in the orbits. Minimal soft tissue stranding in the left cheek likely from previous trauma. Left thyroid nodule. Ultrasound follow-up is recommended. Examination 58632, [id number]., [place] [address]. Thank you for allowing me to participate in the care of this patient. WSN: [id number] Ordering Physician: Jelena Fitzgerald Dictated By: Jamil Graves MD Dictated Date/Time: 12/08/23 3:33 pm Reviewed By: Jamil Graves MD Signed By: Jamil Graves MD Signed Date/Time: 12/08/23 3:33 pm Transcribed By: SUNI Transcribed Date/Time: 12/08/23 1:36 pm * Exam Date Time Procedure Performing Provider Status 12/08/23 12:[address] Cervical Spine W/O Contrast Bharati Evangelista; Arlen (Verified) Notes: (CT Cervical Spine W/O Contrast) Reason For Exam: Neck trauma, dangerous injury mechanism;Other: RESULT: CT Cervical Spine W/O Contrast CT of the head, cervical spine and facial bones dated December 08, 2023. No prior studies are available. HISTORY: Pain secondary to trauma. FINDINGS: CT of the head was performed with multislice acquisition from the foramen magnum through the vertex. No intravenous contrast material was utilized. Axial, coronal, and sagittal reconstruction was performed. A weight based protocol using automatic tube modulation was used to optimize exposure parameters. Examination of the posterior fossa shows a normal size midline fourth ventricle. No mass, hemorrhage, or abnormal extra-axial fluid collection is identified. Supratentorially, the lateral and third ventricles are normal in size, contour and position. No mass, hemorrhage, or abnormal extra-axial fluid collection is identified. Some minimal sulcal prominence is noted. The mendoza-white matter differentiation is well preserved. No hyperdense vessel or loss of the insular ribbon is appreciated. Visualized osseous structures, paranasal sinuses and orbits shows minimal mucosal thickening in theright sphenoid sinus and within both ethmoid sinuses right greater than left. The mastoid air cellsare clear. Hyperostosis frontalis interna is noted. Evaluation of the cervical spine was performed from the skull base through the apices of the lungs with axial, coronal, and sagittal reconstruction. A weight based protocol using automatic tube modulation was used to optimize exposure parameters. The vertebral bodies are normal in height. There is loss of intervertebral disc space height and osteophyte formation throughout. The facet joints align normally. No locked or perched facets are seen. Craniocervical articulation is anatomic. Prevertebral soft tissues are within normal limits. No epidural hematoma is seen. Evaluation of the facial bones was performed with multislice acquisition through the facial bones. Axial, coronal, and sagittal reconstruction was performed. No intravenous contrast material was utilized. A weight based protocol using automatic tube modulation was used to optimize exposure parameters. This examination shows no evidence of fracture. The bony neural septum is midline. Inez bullosa is noted in the middle turbinates. Minimal subacute to chronic inflammatory changes are demonstrated in the right maxillary and bilateral ethmoid sinuses. The ostiomeatal complexes are patent bilaterally. The bony orbits are intact. The globes are symmetric. There is some increased soft tissue inflammation in the region of the left cheek. The left thyroid shows a 3.5 cm nodule measuring 35 Hounsfield units. A product support sales representative image is 85 of series 308. As visualized, the apices of the lungs show some biapical scarring right greater than left. IMPRESSION: No evidence of acute intracranial abnormality. Degenerative changes in the spine without evidence of fracture or dislocation. No evidence of fracture or dislocation in the orbits. Minimal soft tissue stranding in the left cheek likely from previous trauma. Left thyroid nodule. Ultrasound follow-up is recommended. Examination 94146, [address]., [place] [address]. Thank you for allowing me to participate in the care of this patient. WSN: [id number] Ordering Physician: Jelena Fitzgerald Dictated By: Jamil Graves MD Dictated Date/Time: 12/08/23 3:33 pm Reviewed By: Jamil Graves MD Signed By: Jamil Graves MD Signed Date/Time: 12/08/23 3:33 pm Transcribed By: SUNI Transcribed Date/Time: 12/08/23 1:36 pm * Exam Date Time Procedure Performing Provider Status 12/08/23 12:[address] Head/Brain W/O Contrast Jean Carlos , N icole; Auth (Verified) Notes: (CT Head/Brain W/O Contrast) Reason For Exam: Head trauma, mod-severe;Other: RESULT: CT Head/Brain W/O Contrast CT of the head, cervical spine and facial bones dated December 08, 2023. No prior studies are available. HISTORY: Pain secondary to trauma. FINDINGS: CT of the head was performed with multislice acquisition from the foramen magnum through the vertex. No intravenous contrast material was utilized. Axial, coronal, and sagittal reconstruction was performed. A weight based protocol using automatic tube modulation was used to optimize exposure parameters. Examination of the posterior fossa shows a normal size midline fourth ventricle. No mass, hemorrhage, or abnormal extra-axial fluid collection is identified. Supratentorially, the lateral and third ventricles are normal in size, contour and position. No mass, hemorrhage, or abnormal extra-axial fluid collection is identified. Some minimal sulcal prominence is noted. The mendoza-white matter differentiation is well preserved. No hyperdense vessel or loss of the insular ribbon is appreciated. Visualized osseous structures, paranasal sinuses and orbits shows minimal mucosal thickening in theright sphenoid sinus and within both ethmoid sinuses right greater than left. The mastoid air cellsare clear. Hyperostosis frontalis interna is noted. Evaluation of the cervical spine was performed from the skull base through the apices of the lungs with axial, coronal, and sagittal reconstruction. A weight based protocol using automatic tube modulation was used to optimize exposure parameters. The vertebral bodies are normal in height. There is loss of intervertebral disc space height and osteophyte formation throughout. The facet joints align normally. No locked or perched facets are seen. Craniocervical articulation is anatomic. Prevertebral soft tissues are within normal limits. No epidural hematoma is seen. Evaluation of the facial bones was performed with multislice acquisition through the facial bones. Axial, coronal, and sagittal reconstruction was performed. No intravenous contrast material was utilized. A weight based protocol using automatic tube modulation was used to optimize exposure parameters. This examination shows no evidence of fracture. The bony neural septum is midline. Inez bullosa is noted in the middle turbinates. Minimal subacute to chronic inflammatory changes are demonstrated in the right maxillary and bilateral ethmoid sinuses. The ostiomeatal complexes are patent bilaterally. The bony orbits are intact. The globes are symmetric. There is some increased soft tissue inflammation in the region of the left cheek. The left thyroid shows a 3.5 cm nodule measuring 35 Hounsfield units. A product support sales representative image is 85 of series 308. As visualized, the apices of the lungs show some biapical scarring right greater than left. IMPRESSION: No evidence of acute intracranial abnormality. Degenerative changes in the spine without evidence of fracture or dislocation. No evidence of fracture or dislocation in the orbits. Minimal soft tissue stranding in the left cheek likely from previous trauma. Left thyroid nodule. Ultrasound follow-up is recommended. Examination 80865, [address]32., [place] [address]. Thank you for allowing me to participate in the care of this patient. WSN: [id number] Ordering Physician: Jelena Fitzgerald Dictated By: Jamil Graves MD Dictated Date/Time: 12/08/23 3:33 pm Reviewed By: Jamil Graves MD Signed By: Jamil Graves MD Signed Date/Time: 12/08/23 3:33 pm Transcribed By: SUNI Transcribed Date/Time: 12/08/23 1:36 pm Vital Signs Most recent to oldest [Reference Range]: 1 2 3 Weight 60.1 kg (12/09/23 12:10 AM) Oxygen Saturation [94-100 %] 97 % (12/09/23 2:45 PM) 100 % (12/09/23 11:00 AM) 99 % (12/09/23 7:39 AM) Pulse Rate [55-90 bpm] 88 bpm (12/09/23 2:45 PM) 84 bpm (12/09/23 11:00 AM) 82 bpm (12/09/23 7:39 AM) Blood Pressure [90-138/55-84 mm Hg] 117/61mm Hg (12/09/23 2:45 PM) 119/66mm Hg (12/09/23 11:00 AM) 111/52mm Hg (12/09/23 7:39 AM) Respiratory Rate [16-30 br/min] 18 br/min (12/09/23 2:45 PM) 16 br/min (12/09/23 11:00 AM) 16 br/min (12/09/23 10:40 AM) Temperature [96.8-100.4 DegF] 98.2 DegF (12/09/23 2:45 PM) 97.8 DegF (12/09/23 11:00 AM) 97.6 DegF (12/09/23 7:39 AM) Mode of Delivery (Oxygen) Room air (12/09/23 2:45 PM) Room air (12/09/23 11:00 AM) Room air (12/09/23 7:39 AM) Blood pressure sites Arm, left (12/09/23 2:45 PM) Arm, left (12/09/23 11:00 AM) Arm, right (12/09/23 7:39 AM) Temperature Route Oral (12/09/23 2:45 PM) Oral (12/09/23 11:00 AM) Oral (12/09/23 7:39 AM) Weight Obtained Via Bed scale (12/09/23 12:10 AM) History and physical note * Renetta Resendiz MD: PERFORM, MODIFY, MODIFY Event Display: History and Physical Hospital Authored Date: Patient: ??[facility] ? Age:??88 Years?Sex:??Female?:??1935?? Chief Complaint/Reason for Consultation Fall History of Present Illness The pt is demented 88yo F w other pmhx of bipolar disorder, schizophrenia, GERD, iron def anemia onFe and Vit C, chronic pain syndrome on Fentanyl patch which was changed yesterday on 12/07. She was sent from her SNF, [facility] at [place] for an unwitnessed fall as cat2 trauma with head strike. ?LOC, -EtOH, GCS 15. She had BP of 87/53 in L arm and 105/70 n R arm, HR??83, RR 16 and o2 sats of 95% on RA. Per EMS she had??blood in nares/ mouth??and she is??not??on??blood thinners per medical record sent with her. She was evaluated by trauma team. Her neck collar was removed after Imaging and labs are unremarkable. Trauma will follow in am.??Deferred to medicine for syncopal work ??up. She is pl easantly??confused. Details are not available. She is??ambulatory w walker/cane at baseline. I spoke with [facility]??for the details, number is [phone]?? press 2. Pt is quite agitated at times. She had fall(s) before. She has a sister who takes care of a sick , Pat and asked SNF to [facility], friend of them for decisions, she??is available at [phone].?? Review of Systems Unable to obtain Objective Measurements?? Weight: 60.1 kg (12/09/23) ?? Vital Signs?? Temperature: 97.8 DegF (12/09/23 00:10:00) Temperature Route: Oral (12/09/23 00:10:00) Pulse Rate:??91 bpm??High (12/09/23 00:10:00) Pulse Rate, Lyin bpm (12/09/23 00:10:00) Systolic Blood Pressure, Lyin mm Hg (12/09/23 00:10:00) Diastolic Blood Pressure, Lyin mm Hg (12/09/23 00:10:00) Pulse Rate, Sittin bpm (12/09/23 00:10:00) Systolic Blood Pressure, Sittin mm Hg (12/09/23 00:10:00) Diastolic Blood Pressure, Sittin mm Hg (12/09/23 00:10:00) Pulse Rate, Standin bpm (12/09/23 00:10:00) Systolic Blood Pressure, Standin mm Hg (12/09/23 00:10:00) Diastolic Blood Pressure, Standin mm Hg (12/09/23 00:10:00) Respiratory Rate: 18 br/min (12/09/23 00:10:00) Systolic Blood Pressure: 110 mm Hg (12/09/23 00:10:00) Diastolic Blood Pressure: 59 mm Hg (12/09/23 00:10:00) Blood pressure sites: Arm, left (12/09/23 00:10:00) Mean Arterial Pressure: 76 mm Hg (12/09/23 00:10:00) Pulse Pressure: 51 mm Hg (12/09/23 00:10:00) Oxygen Saturation: 98 % (12/09/23 00:10:00) Mode of Delivery (Oxygen): Room air (12/09/23 00:10:00) Early Warning Score: 2 (12/09/23 00:10:43) ?? Pain Scores FACES Scale Score: 4 (13:53) ?? Intake/Output? 12/07 12:15 12/07 07:00 12/06 07:00 12/05 07:00 ?? 12/08 02:04 12/08 02:04 12/07 06:59 12/06 06:59 Urine Count ?1 ?1 ?0 ?0 Diaper Count ?1 ?1 ?0 ?0 ?? [place] Coma Scale [place] Coma Score: 14 (12/08/23 13:53:00) Motor Response-Adult: Obeys commands (12/08/23 13:53:00) Response Eye Opening: Spontaneously (12/08/23 13:53:00) Verbal Response-Adult: Disoriented and converses (12/08/23 13:53:00) ? Physical Exam Constitutional: Alert, in no distress. Mental Status: Oriented to self Head: Normocephalic. Eyes: Pupils are equal, round and reactive to light. Extraocular muscles intact. Ear, Nose and Throat: Upper lip bleeding site, hemostasis achieved. Trachea midline. Neck: Supple, Full range of motion. Respiratory: Clear to auscultation. No wheezing, rales or rhonchi. Cardiovascular: S1 S2 regular. No murmurs, rubs or gallops. Gastrointestinal: Abdomen soft, non-tender, non-distended. Normal bowel sounds.?? Neurologic: No focal neurological deficits grossly. Moves all extremities spontaneously.?? Skin: Bruising??over left shoulder??and ant??left??hip Musculoskeletal: No cyanosis or clubbing. No gross deformities. Normal range of motion. Psychiatric: Pleasantly??demented ?? RESULT: Chest Single Frontal View Chest Single Frontal View ?? Reason: Other:; Pain; Clinical Question(s): Other:; Fracture, pneumothorax, pulmonary contusion / Other:? COMPARISON: Subsequent CT. ?? FINDINGS: ?? LINES AND TUBES:?? None. ?? LUNGS AND PLEURA: Low lung volumes with mild basilar atelectasis. Lungs are otherwise clear with no definite consolidation.?? No pleural effusion.?? No pneumothorax. ?? HEART, MEDIASTINUM AND DUTCH:?? Heart is normal in size. Trachea is deviated to the right which may be due to left thyroid nodule. ?? BONES AND SOFT TISSUES:?? No acute abnormality. ? IMPRESSION: ?? No evidence of acute abnormality. ? Reason For Exam Chest trauma, blunt;Other: ?? RESULT: CT Chest W/ Contrast CT Chest W/ Contrast, CT Abd/Pelvis W/ IV Contrast Only, CT Thoracic Spine W/ Contrast, CT Lumbar Spine W/ Contrast? INDICATION: Reason: Other:; Chest trauma, blunt; Clinical Question(s): Other:; Aortic hilar injury Abdominal trauma, solid organ injury, perforation free fluid. Assess for spine fracture or dislocation. ?? TECHNIQUE: Helical CT scan of the chest, abdomen, and pelvis with IV contrast, formatted in 3 planes. The original dataset was reconstructed with a small field of view around the thoracic and lumbar spine utilizing soft tissue and bone algorithm reconstructions in 3 planes. 100 cc of Omnipaque 300 was administered intravenously. This study was performed without oral contrast. Weight-based protocol was performed using automatic exposure control.? CTDIvol Body: 7.90 mGy, ??DLP Body: 561 mGy*cm. ? COMPARISON: None. ?? FINDINGS:? Pre Owned Sales Manager view findings, lines and tubes: None. ?? Trachea and airways: Patent without evidence of tracheal or endobronchial lesion. ?? Lungs and pleura: Diffuse mosaic pulmonary attenuation, representing combination hypoaeration, air trapping, atelectasis. Trace bilateral pleural effusions. No pneumothorax. ?? Mediastinum and dutch: No mass or hematoma. No mediastinal or hilar lymphadenopathy. No esophageal abnormality. Enlarged heterogeneous LEFT thyroid lobe extending substernal. ?? Heart: Heart is normal in size. No pericardial effusion. ?? Aorta: Mild vascular calcification but no aneurysm. ?? Pulmonary arteries: Normal caliber. No evidence of pulmonary embolism on this study performed without angiographic technique. ?? Chest wall soft tissues: No acute abnormality. ?? Diaphragm: Intact. ?? Liver: Normal in attenuation and morphology. No suspicious lesion. ?? Gallbladder: No CT evidence of gallbladder pathology. No calcified gallstones or wall thickening. ?? Bile ducts: No biliary ductal dilation. ?? Spleen: Normal in size. No focal lesion. ?? Pancreas: No suspicious lesion or ductal dilatation. ?? Adrenal glands: No nodule. ?? Kidneys and ureters: No hydronephrosis, stone, or suspicious lesion. 6 cm LEFT renal simple cyst. ?? Bladder: Normal. No wall thickening or surrounding stranding. ?? Reproductive organs: Normal uterus and adnexa. ?? Stomach, small bowel, and large bowel: Normal bowel caliber. No bowel obstruction. Moderate amount of colonic stool. No surrounding inflammatory changes. No acute bowel process. ?? Appendix: No evidence of acute appendicitis. ?? Peritoneum and retroperitoneum: A few rim calcified foci of fat in the RIGHT lower quadrant, likelyrepresenting foci of chronic fat necrosis. No ascites or pneumoperitoneum. No omental or mesentericlesions. ?? Lymph nodes: No enlarged lymph nodes. ?? Blood vessels: Mild vascular calcifications but no aneurysm. No evidence of venous thrombosis. ?? Abdominal and pelvic wall soft tissues: There is a tiny fat-containing umbilical hernia. ?? 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 Moderate bilateral glenohumeral degenerative arthrosis. No acute fractures. No acute thoracic or lumbar spine fracture. Moderate to severe thoracic and lumbar spine multilevel degenerative disc narrowing with anterior and posterior marginal endplate spurring. ?? IMPRESSION: ?? No acute traumatic findings in the chest, abdomen and pelvis. No acute thoracic or lumbar spine fractures. ? Reason For Exam with Pain;Trauma ?? RESULT: Wrist Comp Min 3 Views Right Wrist Comp Min 3 Views Right ?? CLINICAL INDICATION: Reason: Trauma; with Pain; Clinical Question(s): Fracture. ? TECHNIQUE: AP, oblique, lateral, and navicular views. ? COMPARISON: None. ?? FINDINGS: ?? There is deformity of the distal radius from old healed fracture. This was presumably an impacted distal fracture without clear involvement of articular surface. 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 ?? There is no acute fracture.. There is no focal bony lesion. ? 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 Moderate osteoarthritis of the carpal-first metacarpal joint. ?? IMPRESSION: 1. No acute fracture. 2. Substantial deformity of distal radius due to old healed fracture. 3. Osteoarthritis base of thumb.? ECG Reviewed QTC Calculation(Bazett): 445 ??ms P [place]: 48 ??degrees R [place]: 17 ??degrees T [place]: 54 ??degrees Normal sinus rhythm Normal ECG No previous ECGs available ?? Assessment/Plan ?? Syncope ??(R55) Fall ??(W19.XXXA) Not clear etiology at this time. She had her Fentanyl patch started same day as the fall. Plan -Admit to tele -Orthostatics when pt is able to -PT evaluation -[facility] consult, medication related effects? ?? Alzheimer's dementia ??(G30.9) Bipolar disorder ??(F31.9) Schizophrenia ??(F20.9) Plan -Cont Olanzapine 2.5 mg po qd -Olanzapine po and IM prn for moderate and severe agitation retrospectively -Con Risperidone scheduled and prn for psychosis -Cont melatonin hs -Aspiration precautions -Delirium management -Hypoglycemia measures -Bowel regimen -Symptomatic treatment -Avoid anticholinergics -Whitley consult ?? Chronic pain syndrome ??(G89.4) Plan -Cont scheduled Tylenol 1 gm po tid -Cont Fentanyl patch 25 mcg q3 days ?? Chronic GERD ??(K21.9) Plan -Cont ppi ?? Iron deficiency anemia ??(D50.9) Plan -Cont Vut C and Fe replacement ?? Quality Measures VTE Prophylaxis:??High risk, chemical?? Regular diet?? Code Status:??Full code ?Order Code Status:??Code Status Ordered Histories Allergies Allergies ?(Active and Proposed Allergies Only) NKA? (Severity: Unknown severity, Onset: Unknown) ? Past Medical History/Problem List Active Problems(1) Alzheimer dementia with agitation Schizophrenia Bipolar GERD Anemia Chronic pain syndrome ?? Past Surgical History Unable to obtain from the pt ?? Social History Unable to obtain from the pt ?? Family History Unable to obtain from the pt Medications Home Medications Melatonin 6 mg qhs Olanzapine 2.5 mg po qd Risperdal 1 mg po bid and same dose bid prn w agitation Tylenol 1 gm po tid Vit c 500 mg po qd Tums prn Donepezil 5 mg po qhs Esomeprazole 40 mg po qd Fentanyl patch 25 mcg q3dys Fe 325 mg po qd ?? Inpatient Medications Medications (22) Active SCHEDULED: (12) Acetaminophen 325 mg Tablet (Tylenol 325 mg oral tablet) ??975 mg, By Mouth, Every 8 hours Ascorbic Acid 250 mg Tablet (Vitamin C 500 mg oral tablet) ??500 mg, By Mouth, Daily Donepezil 5 mg Tablet (donepezil 5 mg oral tablet) ??5 mg, By Mouth, Daily at bedtime Donepezil 5 mg Tablet (donepezil 5 mg oral tablet) ??5 mg, By Mouth, Daily at bedtime FENTanyl 25 mcg/hour Patch (FENTanyl ??Patch) ??25 mcg, Topically, Every 72 hours Ferrous Sulfate 325 mg EC Tablet (ferrous sulfate 325 mg oral enteric coated tablet) ??325 mg, By Mouth, Daily Melatonin 3 mg Tablet (Melatonin Tablet) ??6 mg, By Mouth, Daily at bedtime NaCl 0.9% Flush 3ml (NaCL 0.9% Flush) ??3 mL, IV Push, Every 8 hours Olanzapine 2.5 mg Tablet (olanzapine 2.5 mg oral tablet) ??2.5 mg, By Mouth, Daily Pantoprazole 40 mg EC Tablet (pantoprazole 40 mg oral delayed release tablet) ??40 mg, By Mouth, Daily Remove Patch (Remove ??Patch) ??1 each, Topically, Every 72 hours Risperidone 1 mg Tablet (RisperDAL 1 mg oral tablet) ??1 mg, By Mouth, 2 times a day CONTINUOUS: (0) PRN: (10) Calcium Carbonate 500 mg (Calcium 200 mg) Chewable Tablet (calcium carbonate 500 mg (200 mg elemental calcium) oral tablet, chewable) ??1,000 mg 2 tablet, Chew, Every 4 hours Dextromethorphan-Guaifenesin 20 mg-200 mg/10 mL Liqu UD (Robitussin DM Liquid) ??10 mL, By Mouth, Every 4 hours Docusate Sodium 100 mg Capsule (Docusate Sodium Capsule) ??100 mg 1 capsule, By Mouth, 2 times a day NaCl 0.9% Flush 3ml (NaCL 0.9% Flush) ??3 mL, IV Push, Every 8 hours Olanzapine 10 mg Inj (Olanzapine Inj) ??2.5 mg, Intramuscular, Once Olanzapine 2.5 mg Tablet (olanzapine 5 mg oral tablet) ??2.5 mg, By Mouth, 2 times a day Polyethylene Glycol 17 Gm Powder (MiraLax Powder) ??17 Gm 1 pack/packet, By Mouth, Daily Risperidone 1 mg Tablet (RisperDAL 1 mg oral tablet) ??1 mg, By Mouth, 2 times a day Senna Tablet ??8.6 mg 1 tablet, By Mouth, 2 times a day Simethicone 80 mg Chewable Tablet (Simethicone Tablet) ??80 mg, Chew, 3 times a day Results Recent Labs BLOOD BANK Blood Type A Negative ()?? 12/08/2023 12:31 Antibody Screen Negative ()?? 12/08/2023 12:31 ?? BLOOD COUNT & DIFF WBC 8.2 k/mm3 ()?? 12/08/2023 12:31 RBC 3.43 m/mm3 (Low)?? 12/08/2023 12:31 Hgb 8.6 Gm/dL (Low)?? 12/08/2023 12:31 Hct 28.4 % (Low)?? 12/08/2023 12:31 MCV 82.8 femtoliters ()?? 12/08/2023 12:31 MCH 25.1 pg (Low)?? 12/08/2023 12:31 MCHC 30.3 g/dL (Low)?? 12/08/2023 12:31 Platelet Count 276 k/mm3 ()?? 12/08/2023 12:31 RDW-SD 59.0 femtoliters (High)?? 12/08/2023 12:31 MPV 10.9 femtoliters ()?? 12/08/2023 12:31 Nucleated RBC (Automated) 0.0 #/100 WBC'S ()?? 12/08/2023 12:31 Abs. NRBC 0.0 k/mm3 ()?? 12/08/2023 12:31 Abs. Neut 5.3 k/mm3 ()?? 12/08/2023 12:31 Abs. Lymph 1.3 k/mm3 ()?? 12/08/2023 12:31 Abs. [place] 1.2 k/mm3 (High)?? 12/08/2023 12:31 Abs. Eo 0.3 k/mm3 ()?? 12/08/2023 12:31 Abs. Baso 0.1 k/mm3 ()?? 12/08/2023 12:31 Neut % 64.4 % ()?? 12/08/2023 12:31 Lymph % 15.8 % ()?? 12/08/2023 12:31 [place] % 14.8 % (High)?? 12/08/2023 12:31 Eos % 4.0 % ()?? 12/08/2023 12:31 Baso % 0.6 % ()?? 12/08/2023 12:31 Imm Gran 0.4 % ()?? 12/08/2023 12:31 Abs. Imm Gran 0.0 k/mm3 ()?? 12/08/2023 12:31 ?? CHEM GENERAL Sodium 140 mmol/L ()?? 12/08/2023 12:31 Potassium 4.8 mmol/L ()?? 12/08/2023 12:31 Chloride 105 mmol/L ()?? 12/08/2023 12:31 Bicarbonate Level 22 mmol/L ()?? 12/08/2023 12:31 Anion Gap 13 ()?? 12/08/2023 12:31 Glucose Level 90 mg/dL ()?? 12/08/2023 12:31 BUN 14 mg/dL ()?? 12/08/2023 12:31 Creatinine-Blood 0.87 mg/dL ()?? 12/08/2023 12:31 Estimated GFR Creatinine 64 ML/MIN/1.73 M2 ()?? 12/08/2023 12:31 Calcium 8.7 mg/dL ()?? 12/08/2023 12:31 Amylase 72 units/L ()?? 12/08/2023 12:31 Lactate 1.2 mmol/L ()?? 12/08/2023 12:31 ?? ENDOCRINE/TUMOR MARKER TSH 1.30 uIU/mL ()?? 12/08/2023 12:31 ?? TOXICOLOGY/TDM Ethanol, Serum or Plasma NONE DETECTED mg/dL ()?? 12/08/2023 12:31 Barbiturate Screen, Urine NONE DETECTED ()?? 12/08/2023 14:45 Cannabinoid Screen, Urine NONE DETECTED ()?? 12/08/2023 14:45 Cocaine Metabolite Screen, Urine NONE DETECTED ()?? 12/08/2023 14:45 Benzodiazepine Screen, Urine NONE DETECTED ()?? 12/08/2023 14:45 Amphetamine Screen, Urine NONE DETECTED ()?? 12/08/2023 14:45 Opiate Screen, Urine NONE DETECTED ()?? 12/08/2023 14:45 ?? UA/URINALYSIS Appear/Color, Urine COLORLESS ()?? 12/08/2023 14:45 Specific [place], Urine 1.019 ()?? 12/08/2023 14:45 pH, Urine 7.0 ()?? 12/08/2023 14:45 Albumin, Urine NEGATIVE ()?? 12/08/2023 14:45 Glucose, Urine NEGATIVE ()?? 12/08/2023 14:45 Ketones, Urine NEGATIVE ()?? 12/08/2023 14:45 Bilirubin, Urine NEGATIVE ()?? 12/08/2023 14:45 Hemoglobin, Urine NEGATIVE ()?? 12/08/2023 14:45 Nitrite, Urine NEGATIVE ()?? 12/08/2023 14:45 Leukocyte, Urine NEGATIVE ()?? 12/08/2023 14:45 Urobilinogen NORMAL mg/dL ()?? 12/08/2023 14:45 WBC's, Urine 1 /HPF ()?? 12/08/2023 14:45 RBC's, Urine 1 /HPF ()?? 12/08/2023 14:45 Squamous Epith <1 /HPF ()?? 12/08/2023 14:45 ?? VIROLOGY COVID-19 by RT-PCR NEGATIVE ()?? 12/08/2023 13:46 ? Abnormal Labs ?? BLOOD BANK Antibody Screen?Negative ()?12/08/2023 12:31 Blood Type?A Negative ()?12/08/2023 12:31 ?? BLOOD COUNT & DIFF Abs. Imm Gran?0.0 k/mm3 ()?12/08/2023 12:31 Abs. Republic?1.2 k/mm3 (High)?12/08/2023 12:31 Abs. NRBC?0.0 k/mm3 ()?12/08/2023 12:31 Hct?28.4 % (Low)?12/08/2023 12:31 Hgb?8.6 Gm/dL (Low)?12/08/2023 12:31 Imm Gran?0.4 % ()?12/08/2023 12:31 MCH?25.1 pg (Low)?12/08/2023 12:31 MCHC?30.3 g/dL (Low)?12/08/2023 12:31 Republic %?14.8 % (High)?12/08/2023 12:31 Nucleated RBC (Automated)?0.0 #/100 WBC'S ()?12/08/2023 12:31 RBC?3.43 m/mm3 (Low)?12/08/2023 12:31 RDW-SD?59.0 femtoliters (High)?12/08/2023 12:31 ?? CHEM GENERAL Estimated GFR Creatinine?64 ML/MIN/1.73 M2 ()?12/08/2023 12:31 ?? TOXICOLOGY/TDM Amphetamine Screen, Urine?NONE DETECTED ()?12/08/2023 14:45 Barbiturate Screen, Urine?NONE DETECTED ()?12/08/2023 14:45 Benzodiazepine Screen, Urine?NONE DETECTED ()?12/08/2023 14:45 Cannabinoid Screen, Urine?NONE DETECTED ()?12/08/2023 14:45 Cocaine Metabolite Screen, Urine?NONE DETECTED () ?12/08/2023 14:45 Ethanol, Serum or Plasma?NONE DETECTED mg/dL ()?12/08/2023 12:31 Opiate Screen, Urine?NONE DETECTED ()?12/08/2023 14:45 ?? UA/URINALYSIS Albumin, Urine?NEGATIVE ()?12/08/2023 14:45 Appear/Color, Urine?COLORLESS ()?12/08/2023 14:45 Bilirubin, Urine?NEGATIVE ()?12/08/2023 14:45 Glucose, Urine?NEGATIVE ()?12/08/2023 14:45 Hemoglobin, Urine?NEGATIVE ()?12/08/2023 14:45 Ketones, Urine?NEGATIVE ()?12/08/2023 14:45 Leukocyte, Urine?NEGATIVE ()?12/08/2023 14:45 Nitrite, Urine?NEGATIVE ()?12/08/2023 14:45 Urobilinogen?NORMAL mg/dL ()?12/08/2023 14:45 ?? VIROLOGY COVID-19 by RT-PCR?NEGATIVE ()?12/08/2023 13:46 ?? Note: Critical results are displayed in red. ? Blood Glucose Trend Glucose Level: 90 mg/dL (12/08/23 12:31:00) ? CBC, CBC w/Diff?? CBC?? Differential?? WBC: 8.2 k/mm3 (:) Abs. Neut: 5.3 k/mm3 (:) RBC:??3.43 m/mm3??Low (:) Abs. Lymph: 1.3 k/mm3 (:) Hct:??28.4 %??Low (:) Abs. Republic:??1.2 k/mm3??High (:) RDW-SD:??59 femtoliters??High (:) Abs. Eo: 0.3 k/mm3 (:31) Nucleated RBC (Automated): 0 #/100 WBC'S (:) Abs. Baso: 0.1 k/mm3 (:) Abs. NRBC: 0 k/mm3 (:) Neut %: 64.4 % (:) ?? Lymph %: 15.8 % (:) ?? Republic %:??14.8 %??High (12:31) ?? Eos %: 4 % (12:31) ?? Baso %: 0.6 % (12:31) ?? Imm Gran: 0.4 % (12:31) ?? Abs. Imm Gran: 0 k/mm3 (12:31) ? BMP, Mg, and Phos Anion Gap: 13 (12:31) Bicarbonate Level: 22 mmol/L (12:31) BUN: 14 mg/dL (12:31) Calcium: 8.7 mg/dL (12:31) Chloride: 105 mmol/L (12:31) Creatinine-Blood: 0.87 mg/dL (12:31) Estimated GFR Creatinine: 64 ML/MIN/1.73 M2 (12:31) Glucose Level: 90 mg/dL (12:31) Potassium: 4.8 mmol/L (12:31) Sodium: 140 mmol/L (12:31) ?? Coagulation Profile?? No qualifying data available. ?? LFT?? No qualifying data available. ?? Urinalysis Albumin, Urine: NEGATIVE (14:45) Appear/Color, Urine: COLORLESS (14:45) Bilirubin, Urine: NEGATIVE (14:45) Glucose, Urine: NEGATIVE (14:45) Hemoglobin, Urine: NEGATIVE (14:45) Ketones, Urine: NEGATIVE (14:45) Leukocyte, Urine: NEGATIVE (14:45) Nitrite, Urine: NEGATIVE (14:45) pH, Urine: 7 (14:45) RBC's, Urine: 1 /HPF (14:45) Specific [place], Urine: 1.019 (14:45) Squamous Epith: <1 (14:45) Urobilinogen: NORMAL (14:45) WBC's, Urine: 1 /HPF (14:45) ?? Microbiology ?? COVID-19 (Novel Coronavirus), Rapid PCR?? Completed?? Source: Nasal Body Site: Nose Collected Dt/Tm: 12/08/2023 12:29 Last Updated Dt/Tm: 12/08/2023 15:11 ? Blood Gases?? No qualifying data available. ? * Gelacio QUINONES, Irving H: SIGN Gelacio QUINONES, Irving H: SIGNBERNARDINO MD, Irving H: MODIFY, MODIFY, MODIFY, MODIFY, MODIFY, MODIFY, MODIFY, MODIFY, MODIFY, MODIFY, MODIFY, MODIFY, MODIFY, MODIFY, MODIFY, MODIFY, MODIFY, MODIFY, MODIFY, MODIFY, MODIFY, MODIFY, MODIFY, MODIFY, MODIFY, MODIFY, MODIFY, MODIFY, SIGN, VERIFY Event Display: History and Physical Hospital Authored Date: Patient: CORA PRESOCTT Age: 88 years Sex: Female : 1935 Associated Diagnoses: None Author: Jelena Fitzgerald MD Trauma Activation Category: Category 1. Trauma History 88yoF cat2 trauma s/p fall with headstrike. ?LOC, -[place], GCS 15. Per EMS Patient had unwitnessed fall from SNF with + headstrike with blood in nares/ mouth, on no blood thinners. Upon arrival, primary survey was completed and is as follows: airway patent, breath sounds present equal bilaterally, BP 124/69, pupils pinpoint and reactive, GCS 15 (E4 V5 M6). Secondary survey was completed and is documented below. [place] collar was placed for c-spine precaution. 50mcg of Fentanylwere given. Following CXR, the patient was taken to CT for further workup. Past Medical History Dementia, anemia, UTIs Past Surgical History Unknown Medications Unknown Allergies NKA Family History Not assessed Social History Not assessed Review of Systems A 14-point review of systems was negative except as documented above Past Medical History Allergies No allergies have been recorded. Social History Social History No qualifying data available. . Physical Examination Vital Signs: T 98, BP 124/69, HR 93, RR 20, SpO2 99% on Ra General: no acute distress, alert, awake Head: normocephalic, atraumatic, no hematomas, no abrasions, no wounds, no deformities Face: no ecchymosis, no abrasions, evidence of upper lip bleeding has achieved hemostasis, no looseteeth. Eyes: pupils are pinpoint , equal, round, and reactive; extraocular movement intact Ears: no hemotympanum, no blood in external auditory canal, no abrasions, no landa's sign Nose: no epistaxis, no deformity Mandible: no deformity, no malocclusion Neck: cervical-collar in place, no hematoma, no ecchymosis, no wounds, trachea midline Chest: symmetric, no deformity, sternum, chest wall, and clavicles are nontender to palpation, no crepitus appreciated Heart: regular rate and rhythm Lungs: clear to auscultation bilaterally Abdomen: soft, nondistended, nontender, no wounds, no ecchymosis, no hematoma Pelvis: stable, tender to palpation Back: no ecchymosis, no abrasions, no hematoma, no wounds Cervical spine: no midline deformities or stepoffs, + tenderness, cervical- collar in place Thoracic spine: no midline deformities or stepoffs, + tenderness Lumbar spine: no midline deformities or stepoffs, + tenderness Extremities: no long bone deformities, no wounds, no abrasions, no ecchymosis, no hematomas, Cant move left leg, Full passive ROM of all extremities, Right arm + wrist pain and tenderness to palpation Neurologic: GCS15; 5/5 strength and sensation to light touch intact in the bilateral upper and lower extremities Vascular: palpable dorsalis pedis and radial pulses bilaterally Reason For Exam Pain;Other: RESULT: Chest Single Frontal View Chest Single Frontal View Reason: Other:; Pain; Clinical Question(s): Other:; Fracture, pneumothorax, pulmonary contusion / Other: COMPARISON: Subsequent CT. FINDINGS: LINES AND TUBES: None. LUNGS AND PLEURA: Low lung volumes with mild basilar atelectasis. Lungs are otherwise clear with no definite consolidation. No pleural effusion. No pneumothorax. HEART, MEDIASTINUM AND DUTCH: Heart is normal in size. Trachea is deviated to the right which may be due to left thyroid nodule. BONES AND SOFT TISSUES: No acute abnormality. IMPRESSION: No evidence of acute abnormality. Reason For Exam Chest trauma, blunt;Other: RESULT: CT Chest W/ Contrast CT Chest W/ Contrast, CT Abd/Pelvis W/ IV Contrast Only, CT Thoracic Spine W/ Contrast, CT Lumbar Spine W/ Contrast INDICATION: Reason: Other:; Chest trauma, blunt; Clinical Question(s): Other:; Aortic hilar injury Abdominal trauma, solid organ injury, perforation free fluid. Assess for spine fracture or dislocation. TECHNIQUE: Helical CT scan of the chest, abdomen, and pelvis with IV contrast, formatted in 3 planes. The original dataset was reconstructed with a small field of view around the thoracic and lumbar spine utilizing soft tissue and bone algorithm reconstructions in 3 planes. 100 cc of Omnipaque 300 was administered intravenously. This study was performed without oral contrast. Weight-based protocol was performed using automatic exposure control. CTDIvol Body: 7.90 mGy, DLP Body: 561 mGy*cm. COMPARISON: None. FINDINGS: Pre Owned Sales Manager view findings, lines and tubes: None. Trachea and airways: Patent without evidence of tracheal or endobronchial lesion. Lungs and pleura: Diffuse mosaic pulmonary attenuation, representing combination hypoaeration, air trapping, atelectasis. Trace bilateral pleural effusions. No pneumothorax. Mediastinum and dutch: No mass or hematoma. No mediastinal or hilar lymphadenopathy. No esophageal abnormality. Enlarged heterogeneous LEFT thyroid lobe extending substernal. Heart: Heart is normal in size. No pericardial effusion. Aorta: Mild vascular calcification but no aneurysm. Pulmonary arteries: Normal caliber. No evidence of pulmonary embolism on this study performed without angiographic technique. Chest wall soft tissues: No acute abnormality. Diaphragm: Intact. Liver: Normal in attenuation and morphology. No suspicious lesion. Gallbladder: No CT evidence of gallbladder pathology. No calcified gallstones or wall thickening. Bile ducts: No biliary ductal dilation. Spleen: Normal in size. No focal lesion. Pancreas: No suspicious lesion or ductal dilatation. Adrenal glands: No nodule. Kidneys and ureters: No hydronephrosis, stone, or suspicious lesion. 6 cm LEFT renal simple cyst. Bladder: Normal. No wall thickening or surrounding stranding. Reproductive organs: Normal uterus and adnexa. Stomach, small bowel, and large bowel: Normal bowel caliber. No bowel obstruction. Moderate amount of colonic stool. No surrounding inflammatory changes. No acute bowel process. Appendix: No evidence of acute appendicitis. Peritoneum and retroperitoneum: A few rim calcified foci of fat in the RIGHT lower quadrant, likelyrepresenting foci of chronic fat necrosis. No ascites or pneumoperitoneum. No omental or mesentericlesions. Lymph nodes: No enlarged lymph nodes. Blood vessels: Mild vascular calcifications but no aneurysm. No evidence of venous thrombosis. Abdominal and pelvic wall soft tissues: There is a tiny fat-containing umbilical hernia. 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 Moderate bilateral glenohumeral degenerative arthrosis. No acute fractures. No acute thoracic or lumbar spine fracture. Moderate to severe thoracic and lumbar spine multilevel degenerative disc narrowing with anterior and posterior marginal endplate spurring. IMPRESSION: No acute traumatic findings in the chest, abdomen and pelvis. No acute thoracic or lumbar spine fractures. Reason For Exam with Pain;Trauma RESULT: Wrist Comp Min 3 Views Right Wrist Comp Min 3 Views Right CLINICAL INDICATION: Reason: Trauma; with Pain; Clinical Question(s): Fracture. TECHNIQUE: AP, oblique, lateral, and navicular views. COMPARISON: None. FINDINGS: There is deformity of the distal radius from old healed fracture. This was presumably an impacted distal fracture without clear involvement of articular surface. 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 There is no acute fracture.. There is no focal bony lesion. 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 Moderate osteoarthritis of the carpal-first metacarpal joint. IMPRESSION: 1. No acute fracture. 2. Substantial deformity of distal radius due to old healed fracture. 3. Osteoarthritis base of thumb. Results Review Today's results : ALL RESULTS SECTIONS 12/08/2023 16:55 EDT Temperature 97.7 DegF Temperature Route Oral Pulse Rate 95 bpm H Respiratory Rate 17 br/min Systolic Blood Pressure 103 mm Hg Diastolic Blood Pressure 60 mm Hg Mean Arterial Pressure 74 mm Hg Pulse Pressure 43 mm Hg Oxygen Saturation 100 % ED Forms - Text ED Vital Signs ED Vital Signs ED Vital Signs 12/08/2023 15:57 EDT ECG 12-Lead 12 Lead ECG 12/08/2023 14:45 EDT Barbiturate Screen, Urine NONE DETECTED Cannabinoid Screen, Urine NONE DETECTED Cocaine Metabolite Screen, Urine NONE DETECTED Benzodiazepine Screen, Urine NONE DETECTED Amphetamine Screen, Urine NONE DETECTED Opiate Screen, Urine NONE DETECTED 12/08/2023 13:53 EDT Face scale score 4 Assessment Forms ED Assessment Form Minh Coma Score 14 ED Assessment Form ED Assessment Form History of Present Illness see trauma sheet for more info 55 Yrs or Older, Lives Independently No Allergies Reviewed Unable to obtain Behav Health Condition/Able to Respond? Primary reason for visit is NOT Behavioral Health condition Does Pt have a Medication Infusion Pump No Domestic Violence Screen Unable to assess PLACIDO Level 1 No PLACIDO Level 2 Yes Face scale Hurts a little more (face 4) High Fall Risk (ED) Yes, bracelet on Home Medication Review Done Initial Treatments (ED) Stretcher Motor response Obeys commands Other Objective Findings Other Objective Findings Status Not Recommended PLACIDO 2 Response Eye Opening Spontaneously Smoking cessation Patient unable to answer/respond/obtain Stated Complaint trauma Current Thoughts of Harming Others No Tracking Group [facility] Tracking Group Verbal Response-Adult Disoriented and converses Patient Preferred Pharmacy Addressed Done Is there a possible source of infection? No Current Encounter Data Current Encounter Data ED Tracking Acuity T Pain assessment method used (pedi) FACES scale Pain Assessment Assessment Patient Identifying Information Patient Identifying Information Add Health Care Proxy Adv Directive Doc? Use current scanned-in HCP (only select this option if there HCP and Advance Directive Docs in Chart HCP and Advance Directive Docs in Chart Able to Spell LUNCH Backwards? Yes Arrived w/Alt. Level of Consciousness? No Pt had a Kidney Transplant? No 12/08/2023 13:46 EDT COVID-19 by RT-PCR NEGATIVE 12/08/2023 13:27 EDT Temperature 97.6 DegF Temperature Route Oral Pulse Rate 86 bpm Respiratory Rate 17 br/min Systolic Blood Pressure 131 mm Hg Diastolic Blood Pressure 67 mm Hg Mean Arterial Pressure 88 mm Hg Pulse Pressure 64 mm Hg Oxygen Saturation 95 % Mode of Delivery (Oxygen) Room air ED Forms - Text ED Vital Signs ED Vital Signs ED Vital Signs Abdomen Soft, Non-tender Activity Walks occasionally Affect/Behavior Agitated, Anxious, Uncooperative Capillary Refill < 3 seconds Cardiovascular Comment pt denies chest pain Cardiovascular Symptoms None Cough No cough Gastrointestinal Comment no N /V/D noted Gastrointestinal Symptoms None Genitourinary Comment no urinary symptoms noted. pt has brief on, used bedpan Level of Consciousness Confusion Mobility Slightly limited Musculoskeletal Comment pt has c-collar on due to fall. GARIBAY in bed Musculoskeletal Symptoms Weakness Nail Bed Color [place] Neurological Comments pt able to answer questions correctly but agitated and ucooperative. pt has hist. dementia Neurological Symptoms Back pain, Headache: persistent, changing or sudden Orientated to person, place, time Person, Place, Time, Event Periods of Tachypnea No Range of Motion Description Limited motion Respiratory Assessment Comment RR even and unlabored Respiratory effort Unlabored Respiratory pattern Regular Respiratory Symptoms None Sa02 Desaturations No Skin Color Pale Skin Description Dry Skin Temperature Warm Skin Temperature Lower Extremities Warm Skin Temperature Upper Extremities Warm 12/08/2023 13:16 EDT Wrist Comp Min 3 Views Right XR Wrist Comp Min 3 Views Right 12/08/2023 13:07 EDT ED Forms - Text ED Triage Form ED Triage Form ED Triage Form ABC Stable Yes Arrived by Ambulance Yes Communication Barriers Grid None Language Spoken [id number] Malagasy Stated Complaint trauma Tracking Group [facility] ED [facility] Tracking Group Is there a possible source of infection? No ED Tracking Acuity T Travel Outside [facility] No 12/08/2023 13:[address] Chest W/ Contrast CT Chest W/ Contrast CT Lumbar Spine W/ Contrast CT Lumbar Spine W/ Contrast CT Thoracic Spine W/ Contrast CT Thoracic Spine W/ Contrast CT Abd/Pelvis W/ IV Contrast Only CT Abd/Pelvis W/ IV Contrast Only 12/08/2023 12:[address] Head/Brain W/O Contrast CT Head/Brain W/O Contrast CT Maxilloface W/O Contrast CT Maxilloface W/O Contrast CT Cervical Spine W/O Contrast CT Cervical Spine W/O Contrast 12/08/2023 12:43 EDT Chest Single Frontal View XR Chest Single Frontal View 12/08/2023 12:41 EDT Patient Forms Valuables and Belongings Valuables and Belongings Form Valuables and Belongings Form [facility] RELEASE OF RESPONSIBILITY Signature of Patient/Label Maker Signature of Patient/Label Maker Signature of witness Signature of witness . . . . Date for pt to sign Valuable/Belonging 12/08/2023 12:41 Clothes - Valuables at Bedside Shirt 12/08/2023 12:37 EDT Procedure Note eFAST 12/08/2023 12:31 EDT Blood Type A Negative Antibody Screen Negative 12/08/2023 12:31 EDT WBC 8.2 k/mm3 RBC 3.43 m/mm3 L Hgb 8.6 Gm/dL L Hct 28.4 % L MCV 82.8 femtoliters MCH 25.1 pg L MCHC 30.3 g/dL L Platelet Count 276 k/mm3 RDW-SD 59.0 femtoliters H MPV 10.9 femtoliters Nucleated RBC (Automated) 0.0 #/100 WBC'S Abs. NRBC 0.0 k/mm3 Abs. Neut 5.3 k/mm3 Abs. Lymph 1.3 k/mm3 Abs. Republic 1.2 k/mm3 H Abs. Eo 0.3 k/mm3 Abs. Baso 0.1 k/mm3 Neut % 64.4 % Lymph % 15.8 % Republic % 14.8 % H Eos % 4.0 % Baso % 0.6 % Imm Gran 0.4 % Abs. Imm Gran 0.0 k/mm3 Sodium 140 mmol/L Potassium 4.8 mmol/L Chloride 105 mmol/L Bicarbonate Level 22 mmol/L Anion Gap 13 Glucose Level 90 mg/dL BUN 14 mg/dL Creatinine-Blood 0.87 mg/dL Estimated GFR Creatinine 64 ML/MIN/1.73 M2 Calcium 8.7 mg/dL Amylase 72 units/L Lactate 1.2 mmol/L Ethanol, Serum or Plasma NONE DETECTED mg/dL 12/08/2023 12:15 EDT MARIE Alert MARIE Alert 12/08/2023 0:00 EDT General Consent for Care and Treatment General Consent for Care and Treatment Procedure FAST Exam Normal - no fluid x 4 quadrants. Impression and Plan 88yoF cat2 trauma s/p fall with headstrike. ?LOC, -[place], GCS 15.Patient received a chest xray that showed no acute abnormalities. Patient additionally received a right wrist X-ray that showed chronicchanges but no new acute fracture. Patient received a ct head, neck, chest, abd/pelvis, all of which were negative. In the setting of no traumatic injuries, patient will be admitted to medicine. Trauma to perform a tertiary exam in the morning to evaluate for missed injuries. Injuries None Interventions None Consultants None Plan Tert in AM Medicine admit Syncope + fall work up Discussed with Dr. Brizuela [place] trauma surgery [id number] with any questions or concerns * Gelacio QUINONES, Irving : PERFORM Event Display: History and Physical Hospital Authored Date: Attending Attestation: The patient was seen, examined, and discussed with the Trauma team on the date of service documented above. ??The clinical course, labs, and radiological studies were reviewed by me and findings on exam confirmed. ??I agree with the findings as well as the assessment and plan as delineated above. I have??performed the substantive portion of the medical decision making for the syncope--admit to medicine Medical Decision Making: HIGH -chronic illness w/ SEVERE exac, progression, or AE of Tx, or illness or injury that poses a threat to life or bodily function; 2 of (note / test / order / indep historian = 3), interpretation /discussion; HIGH risk --- Irving Brizuela MD, PATT, FACS, [facility] Division of Trauma, Acute Care Surgery, and Surgical Critical Care EKG study * Event Display: ECG 12-Lead Authored Date: Please click on pdf link to open report * Event Display: ECG 12-Lead Authored Date: Ventricular Rate: 93 BPM Atrial Rate: 93 BPM P-R Interval: 150 ms QRS Duration: 72 ms Q-T Interval: 358 ms QTC Calculation(Bazett): 445 ms P [place]: 48 degrees R [place]: 17 degrees T [place]: 54 degrees Normal sinus rhythm Normal ECG No previous ECGs available Confirmed by Nguyễn Dickinson ([id number]) on 12/08/2023 4:33:25 PM [place] * Lucila Villasenor MD: PERFORM, MODIFY Event Display: Progress Note [facility] Authored Date: Patient: ??CORA PRESCOTT ? Age:??88 Years?Sex:??Female?:??1935?? Subjective Patient had no acute events overnight. When asked about pain, states her right leg hurts. She is eating and drinking without issues. Voiding well. No complaints of headache, nausea, vomiting, abdominal pain, chest pain, SOB or fever. Review of Systems Negative except as noted above Physical Exam Vitals & Measurements T:??97.8?F?? HR:??88??(Peripheral)?? RR:??20?? BP:??130/61?? SpO2:??97%?? WT:??60.1??kg?? Vital Signs: T 98, BP 124/69, HR 93, RR 20, SpO2 99% on Ra General: no acute distress, alert, awake Head: normocephalic, atraumatic, no hematomas, no abrasions, no wounds, no deformities Face: no ecchymosis, no abrasions,??evidence of upper lip bleeding has achieved hemostasis, no loose teeth. Eyes:??equal, round, and reactive; extraocular movement intact Ears: no blood in external auditory canal, no abrasions, no landa's sign Neck: no hematoma, no ecchymosis, no wounds, trachea midline Chest: symmetric, no deformity, sternum, chest wall, and clavicles are nontender to palpation, no crepitus appreciated Heart: regular rate and rhythm Lungs: clear to auscultation bilaterally Abdomen: soft, nondistended, nontender, no wounds, no ecchymosis, no hematoma Pelvis: stable,??right side tender to palpation Back: no ecchymosis, no abrasions, no hematoma, no wounds Cervical spine: no midline deformities or stepoffs,??no tenderness Thoracic spine: no midline deformities or stepoffs,??no tenderness Lumbar spine: no midline deformities or stepoffs,??no tenderness Extremities: no long bone deformities, no wounds, no abrasions, no ecchymosis, no hematomas,??difficulty moving R??leg secondary to pain,??able to bend and move left leg without issue, Right wrist pain and tenderness to palpation with ecchymosis Neurologic: GCS15 Vascular: palpable dorsalis pedis pulses bilaterally?? Assessment/Plan 88yoF cat2 trauma s/p fall with headstrike. ?LOC, -[place], GCS 15.Patient received a chest xray that showed no acute abnormalities. Patient additionally received a right wrist X-ray that showed chronicchanges but no new acute fracture. Patient received a ct head, neck, chest, abd/pelvis, all of which were negative. In the setting of no traumatic injuries, patient was admitted to medicine.? This??morning on tertiary exam, patient had pain and difficulty moving her right leg. She also has ecchymosis??pain in her??right wrist.??Possible she fell on that side. Her wrist was imaged but not her femur. X-ray??femur and pelvis negative for fracture. ?? Injuries None ?? Interventions None ?? Consultants None ?? Plan - Medicine admit - Syncope + fall work up per medicine?? - Trauma will sign off ?? Discussed with Dr. Rylie Hernandez trauma surgery [id number] with any questions or concerns Intake and Output Intake and Output Results?? This visit (24 hour periods starting at 07:00 EDT)? 12/09/23 *?? 12/08/23?? 12/07/23?? Total Summary?Intake mL?? --?? --?? --?Output mL?? --?? --?? --?Fluid Balance ?? --?? --?? --?? Intake (0)? Output (0)? Counts (2)?Diaper Count ?? --?? 1?? --?Urine Count ?? --?? 1?? --? * This column has not completed the indicated time period.?? Labs Last 24 Hours BLOOD COUNT & DIFF ? Event Name?? Event Result?? Date/Time?? WBC 8.2 k/mm3 12/08/23 12:31:00 RBC 3.43 m/mm3??Low 12/08/23 12:31:00 Hgb 8.6 Gm/dL??Low 12/08/23 12:31:00 Hct 28.4 %??Low 12/08/23 12:31:00 MCV 82.8 femtoliters 12/08/23 12:31:00 MCH 25.1 pg??Low 12/08/23 12:31:00 MCHC 30.3 g/dL??Low 12/08/23 12:31:00 Platelet Count 276 k/mm3 12/08/23 12:31:00 MPV 10.9 femtoliters 12/08/23 12:31:00 Nucleated RBC (Automated) 0 #/100 WBC'S 12/08/23 12:31:00 ? CHEM GENERAL ? Event Name?? Event Result?? Date/Time?? Sodium 140 mmol/L 12/08/23 12:31:00 Chloride 105 mmol/L 12/08/23 12:31:00 Bicarbonate Level 22 mmol/L 12/08/23 12:31:00 Anion Gap 13 12/08/23 12:31:00 Glucose Level 90 mg/dL 12/08/23 12:31:00 BUN 14 mg/dL 12/08/23 12:31:00 Creatinine-Blood 0.87 mg/dL 12/08/23 12:31:00 Amylase 72 units/L 12/08/23 12:31:00 ? Images Wrist Comp Min 3 Views Right Event Date: 12/08/2023 13:16:26 EDT Updated: 12/08/2023 13:45 EDT XR Wrist Comp Min 3 Views Right This document has an image Reason For Exam with??Pain;Trauma RESULT: Wrist Comp Min 3 Views Right Wrist??Comp Min 3 Views Right ?? CLINICAL INDICATION: Reason: Trauma; with Pain; Clinical Question(s): Fracture. ? TECHNIQUE: AP, oblique, lateral, and navicular views. ? COMPARISON: None. ?? FINDINGS: ?? There is deformity of the distal radius from old healed fracture. This was presumably an impacted distal fracture without clear involvement of articular surface. 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 ?? There is no acute fracture.. There is no focal bony lesion. ? 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 Moderate osteoarthritis of the carpal-first metacarpal joint. ?? IMPRESSION: 1. No acute fracture. 2. Substantial deformity of distal radius due to old healed fracture. 3. Osteoarthritis base of thumb. ?? WSN: [id number] ? Ordering Physician: Jelena Fitzgerald?? Signature Line Dictated By: ?Gary Dwyer MD Dictated Date/Time: ?12/08/23 1:42 pm Reviewed By: ?Gary Dwyer MD Signed By: ? Gary Dwyer MD Signed Date/Time: ? 12/08/23 1:42 pm Transcribed By: ? CSB Transcribed Date/Time: ?12/08/23 1:39 pm ?? Wrist Comp Min [address] Chest W/ Contrast Event Date: 12/08/2023 13:06:08 EDT Updated: 12/08/2023 13:[address] Chest W/ Contrast This document has an image Reason For Exam Chest trauma, blunt;Other: RESULT: CT Chest W/ Contrast CT Chest W/ Contrast, CT Abd/Pelvis W/ IV Contrast Only, CT Thoracic Spine W/ Contrast, CT Lumbar Spine W/ Contrast? INDICATION: Reason: Other:; Chest trauma, blunt; Clinical Question(s): Other:; Aortic hilar injury Abdominal trauma, solid organ injury, perforation free fluid. Assess for spine fracture or dislocation. ?? TECHNIQUE: Helical CT scan of the chest, abdomen, and pelvis with IV contrast, formatted in 3 planes. The original dataset was reconstructed with a small field of view around the thoracic and lumbar spine utilizing soft tissue and bone algorithm reconstructions in 3 planes. 100 cc of Omnipaque 300 was administered intravenously. This study was performed without oral contrast. Weight-based protocol was performed using automatic exposure control.? CTDIvol Body: 7.90 mGy, ??DLP Body: 561 mGy*cm. ? COMPARISON: None. ?? FINDINGS:? Pre Owned Sales Manager view findings, lines and tubes: None. ?? Trachea and airways: Patent without evidence of tracheal or endobronchial lesion. ?? Lungs and pleura: Diffuse mosaic pulmonary attenuation, representing combination hypoaeration, air trapping, atelectasis. Trace bilateral pleural effusions. No pneumothorax. ?? Mediastinum and dutch: No mass or hematoma. No mediastinal or hilar lymphadenopathy. No esophageal abnormality. Enlarged heterogeneous LEFT thyroid lobe extending substernal. ?? Heart: Heart is normal in size. No pericardial effusion. ?? Aorta: Mild vascular calcification but no aneurysm. ?? Pulmonary arteries: Normal caliber. No evidence of pulmonary embolism on this study performed without angiographic technique. ?? Chest wall soft tissues: No acute abnormality. ?? Diaphragm: Intact. ?? Liver: Normal in attenuation and morphology. No suspicious lesion. ?? Gallbladder: No CT evidence of gallbladder pathology. No calcified gallstones or wall thickening. ?? Bile ducts: No biliary ductal dilation. ?? Spleen: Normal in size. No focal lesion. ?? Pancreas: No suspicious lesion or ductal dilatation. ?? Adrenal glands: No nodule. ?? Kidneys and ureters: No hydronephrosis, stone, or suspicious lesion. 6 cm LEFT renal simple cyst. ?? Bladder: Normal. No wall thickening or surrounding stranding. ?? Reproductive organs: Normal uterus and adnexa. ?? Stomach, small bowel, and large bowel: Normal bowel caliber. No bowel obstruction. Moderate amount of colonic stool. No surrounding inflammatory changes. No acute bowel process. ?? Appendix: No evidence of acute appendicitis. ?? Peritoneum and retroperitoneum: A few rim calcified foci of fat in the RIGHT lower quadrant, likelyrepresenting foci of chronic fat necrosis. No ascites or pneumoperitoneum. No omental or mesentericlesions. ?? Lymph nodes: No enlarged lymph nodes. ?? Blood vessels: Mild vascular calcifications but no aneurysm. No evidence of venous thrombosis. ?? Abdominal and pelvic wall soft tissues: There is a tiny fat-containing umbilical hernia. ?? 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 Moderate bilateral glenohumeral degenerative arthrosis. No acute fractures. No acute thoracic or lumbar spine fracture. Moderate to severe thoracic and lumbar spine multilevel degenerative disc narrowing with anterior and posterior marginal endplate spurring. ?? IMPRESSION: ?? No acute traumatic findings in the chest, abdomen and pelvis. No acute thoracic or lumbar spine fractures. ? WSN: [id number] ? Ordering Physician: Jelena Fitzgerald?? Signature Line Dictated By: ?Caity Sullivan MD Dictated Date/Time: ?12/08/23 1:33 pm Reviewed By: ?Caity Sullivan MD Signed By: ? Caity Sullivan MD Signed Date/Time: ? 12/08/23 1:33 pm Transcribed By: ? CSB Transcribed Date/Time: ?12/08/23 1:21 pm ?? CT Chest W/ Contrast CT Lumbar Spine W/ Contrast Event Date: 12/08/2023 13:06:08 EDT Updated: 12/08/2023 13:[address] Lumbar Spine W/ Contrast This document has an image Reason For Exam Spine fracture, lumbar, traumatic;Other: RESULT: CT Lumbar Spine W/ Contrast CT Chest W/ Contrast, CT Abd/Pelvis W/ IV Contrast Only, CT Thoracic Spine W/ Contrast, CT Lumbar Spine W/ Contrast? INDICATION: Reason: Other:;??Chest trauma, blunt; Clinical Question(s): Other:; Aortic hilar injury Abdominal trauma, solid organ injury, perforation free fluid. Assess for spine fracture or dislocation. ?? TECHNIQUE: Helical CT scan of the chest, abdomen, and pelvis with IV contrast, formatted in 3 planes. The original dataset was reconstructed with a small field of view around the thoracic and lumbar spine utilizing soft tissue and bone algorithm reconstructions in 3 planes. 100 cc of Omnipaque 300 was administered intravenously. This study was performed without oral contrast. Weight-based protocol was performed using automatic exposure control.? CTDIvol Body: 7.90 mGy, ??DLP Body: 561 mGy*cm. ? COMPARISON: None. ?? FINDINGS:? Pre Owned Sales Manager view findings, lines and tubes: None. ?? Trachea and airways: Patent without evidence of tracheal or endobronchial lesion. ?? Lungs and pleura: Diffuse mosaic pulmonary attenuation, representing combination hypoaeration, air trapping, atelectasis. Trace bilateral pleural effusions. No pneumothorax. ?? Mediastinum and dutch: No mass or hematoma. No mediastinal or hilar lymphadenopathy. No esophageal abnormality. Enlarged heterogeneous LEFT thyroid lobe extending substernal. ?? Heart: Heart is normal in size. No pericardial effusion. ?? Aorta: Mild vascular calcification but no aneurysm. ?? Pulmonary arteries: Normal caliber. No evidence of pulmonary embolism on this study performed without angiographic technique. ?? Chest wall soft tissues: No acute abnormality. ?? Diaphragm: Intact. ?? Liver: Normal in attenuation and morphology. No suspicious lesion. ?? Gallbladder: No CT evidence of gallbladder pathology. No calcified gallstones or wall thickening. ?? Bile ducts: No biliary ductal dilation. ?? Spleen: Normal in size. No focal lesion. ?? Pancreas: No suspicious lesion or ductal dilatation. ?? Adrenal glands: No nodule. ?? Kidneys and ureters: No hydronephrosis, stone, or suspicious lesion. 6 cm LEFT renal simple cyst. ?? Bladder: Normal. No wall thickening or surrounding stranding. ?? Reproductive organs: Normal uterus and adnexa. ?? Stomach, small bowel, and large bowel: Normal bowel caliber. No bowel obstruction. Moderate amount of colonic stool. No surrounding inflammatory changes. No acute bowel process. ?? Appendix: No evidence of acute appendicitis. ?? Peritoneum and retroperitoneum: A few rim calcified foci of fat in the RIGHT lower quadrant, likelyrepresenting foci of chronic fat necrosis. No ascites or pneumoperitoneum. No omental or mesentericlesions. ?? Lymph nodes: No enlarged lymph nodes. ?? Blood vessels: Mild vascular calcifications but no aneurysm. No evidence of venous thrombosis. ?? Abdominal and pelvic wall soft tissues: There is a tiny fat-containing umbilical hernia. ?? 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 Moderate bilateral glenohumeral degenerative arthrosis. No acute fractures. No acute thoracic or lumbar spine fracture. Moderate to severe thoracic and lumbar spine multilevel degenerative disc narrowing with anterior and posterior marginal endplate spurring. ?? IMPRESSION: ?? No acute traumatic findings in the chest, abdomen and pelvis. No acute thoracic or lumbar spine fractures. ? WSN: [id number] ? Ordering Physician: Jelena Fitzgerald?? Signature Line Dictated By: ?Caity Sullivan MD Dictated Date/Time: ?12/08/23 1:33 pm Reviewed By: ?Caity Sullivan MD Signed By: ? Caity Sullivan MD Signed Date/Time: ? 12/08/23 1:33 pm Transcribed By: ? CSB Transcribed Date/Time: ?12/08/23 1:21 pm ?? CT Thoracic Spine W/ Contrast Event Date: 12/08/2023 13:06:08 EDT Updated: 12/08/2023 13:[address] Thoracic Spine W/ Contrast This document has an image Reason For Exam Spine fracture, thoracic, traumatic;Other: RESULT: CT Thoracic Spine W/ Contrast CT Chest W/ Contrast, CT Abd/Pelvis W/ IV Contrast Only, CT Thoracic Spine W/ Contrast, CT Lumbar Spine W/ Contrast? INDICATION: Reason: Other:; Chest trauma, blunt; Clinical Question(s): Other:; Aortic hilar injury Abdominal trauma, solid organ injury, perforation free fluid. Assess for spine fracture or dislocation. ?? TECHNIQUE: Helical CT scan of the chest, abdomen, and pelvis with IV contrast, formatted in 3 planes. The original dataset was reconstructed with a small field of view around the thoracic and lumbar spine utilizing soft tissue and bone algorithm reconstructions in 3 planes. 100 cc of Omnipaque 300 was administered intravenously. This study was performed without oral contrast. Weight-based protocol was performed using automatic exposure control.? CTDIvol Body: 7.90 mGy, ??DLP Body: 561 mGy*cm. ? COMPARISON: None. ?? FINDINGS:? Pre Owned Sales Manager view findings, lines and tubes: None. ?? Trachea and airways: Patent without evidence of tracheal or endobronchial lesion. ?? Lungs and pleura: Diffuse mosaic pulmonary attenuation, representing combination hypoaeration, air trapping, atelectasis. Trace bilateral pleural effusions. No pneumothorax. ?? Mediastinum and dutch: No mass or hematoma. No mediastinal or hilar lymphadenopathy. No esophageal abnormality. Enlarged heterogeneous LEFT thyroid lobe extending substernal. ?? Heart: Heart is normal in size. No pericardial effusion. ?? Aorta: Mild vascular calcification but no aneurysm. ?? Pulmonary arteries: Normal caliber. No evidence of pulmonary embolism on this study performed without angiographic technique. ?? Chest wall soft tissues: No acute abnormality. ?? Diaphragm: Intact. ?? Liver: Normal in attenuation and morphology. No suspicious lesion. ?? Gallbladder: No CT evidence of gallbladder pathology. No calcified gallstones or wall thickening. ?? Bile ducts: No biliary ductal dilation. ?? Spleen: Normal in size. No focal lesion. ?? Pancreas: No suspicious lesion or ductal dilatation. ?? Adrenal glands: No nodule. ?? Kidneys and ureters: No hydronephrosis, stone, or suspicious lesion. 6 cm LEFT renal simple cyst. ?? Bladder: Normal. No wall thickening or surrounding stranding. ?? Reproductive organs: Normal uterus and adnexa. ?? Stomach, small bowel, and large bowel: Normal bowel caliber. No bowel obstruction. Moderate amount of colonic stool. No surrounding inflammatory changes. No acute bowel process. ?? Appendix: No evidence of acute appendicitis. ?? Peritoneum and retroperitoneum: A few rim calcified foci of fat in the RIGHT lower quadrant, likelyrepresenting foci of chronic fat necrosis. No ascites or pneumoperitoneum. No omental or mesentericlesions. ?? Lymph nodes: No enlarged lymph nodes. ?? Blood vessels: Mild vascular calcifications but no aneurysm. No evidence of venous thrombosis. ?? Abdominal and pelvic wall soft tissues: There is a tiny fat-containing umbilical hernia. ?? 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 Moderate bilateral glenohumeral degenerative arthrosis. No acute fractures. No acute thoracic or lumbar spine fracture. Moderate to severe thoracic and lumbar spine multilevel degenerative disc narrowing with anterior and posterior marginal endplate spurring. ?? IMPRESSION: ?? No acute traumatic findings in the chest, abdomen and pelvis. No acute thoracic or lumbar spine fractures. ? WSN: [id number] ? Ordering Physician: Jelena Fitzgerald?? Signature Line Dictated By: ?Caity Sullivan MD Dictated Date/Time: ?12/08/23 1:33 pm Reviewed By: ?Caity Sullivan MD Signed By: ? Caity Sullivan MD Signed Date/Time: ? 12/08/23 1:33 pm Transcribed By: ? CSB Transcribed Date/Time: ?12/08/23 1:21 pm ?? CT Abd/Pelvis W/ IV Contrast Only Event Date: 12/08/2023 13:06:08 EDT Updated: 12/08/2023 13:[address] Abd/Pelvis W/ IV Contrast Only This document has an image Reason For Exam Abd trauma, blunt;Other: RESULT: CT Abd/Pelvis W/ IV Contrast Only CT Chest W/ Contrast, CT Abd/Pelvis W/ IV Contrast Only, CT Thoracic Spine W/ Contrast, CT Lumbar Spine W/ Contrast? INDICATION: Reason: Other:; Chest trauma, blunt; Clinical Question(s): Other:; Aortic hilar injury Abdominal trauma, solid organ injury, perforation free fluid. Assess for spine fracture or dislocation. ?? TECHNIQUE: Helical CT scan of the chest, abdomen, and pelvis with IV contrast, formatted in 3 planes. The original dataset was reconstructed with a small field of view around the thoracic and lumbar spine utilizing soft tissue and bone algorithm reconstructions in 3 planes. 100 cc of Omnipaque 300 was administered intravenously. This study was performed without oral contrast. Weight-based protocol was performed using automatic exposure control.? CTDIvol Body: 7.90 mGy, ??DLP Body: 561 mGy*cm. ? COMPARISON: None. ?? FINDINGS:? Pre Owned Sales Manager view findings, lines and tubes: None. ?? Trachea and airways: Patent without evidence of tracheal or endobronchial lesion. ?? Lungs and pleura: Diffuse mosaic pulmonary attenuation, representing combination hypoaeration, air trapping, atelectasis. Trace bilateral pleural effusions. No pneumothorax. ?? Mediastinum and dutch: No mass or hematoma. No mediastinal or hilar lymphadenopathy. No esophageal abnormality. Enlarged heterogeneous LEFT thyroid lobe extending substernal. ?? Heart: Heart is normal in size. No pericardial effusion. ?? Aorta: Mild vascular calcification but no aneurysm. ?? Pulmonary arteries: Normal caliber. No evidence of pulmonary embolism on this study performed without angiographic technique. ?? Chest wall soft tissues: No acute abnormality. ?? Diaphragm: Intact. ?? Liver: Normal in attenuation and morphology. No suspicious lesion. ?? Gallbladder: No CT evidence of gallbladder pathology. No calcified gallstones or wall thickening. ?? Bile ducts: No biliary ductal dilation. ?? Spleen: Normal in size. No focal lesion. ?? Pancreas: No suspicious lesion or ductal dilatation. ?? Adrenal glands: No nodule. ?? Kidneys and ureters: No hydronephrosis, stone, or suspicious lesion. 6 cm LEFT renal simple cyst. ?? Bladder: Normal. No wall thickening or surrounding stranding. ?? Reproductive organs: Normal uterus and adnexa. ?? Stomach, small bowel, and large bowel: Normal bowel caliber. No bowel obstruction. Moderate amount of colonic stool. No surrounding inflammatory changes. No acute bowel process. ?? Appendix: No evidence of acute appendicitis. ?? Peritoneum and retroperitoneum: A few rim calcified foci of fat in the RIGHT lower quadrant, likelyrepresenting foci of chronic fat necrosis. No ascites or pneumoperitoneum. No omental or mesentericlesions. ?? Lymph nodes: No enlarged lymph nodes. ?? Blood vessels: Mild vascular calcifications but no aneurysm. No evidence of venous thrombosis. ?? Abdominal and pelvic wall soft tissues: There is a tiny fat-containing umbilical hernia. ?? 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 Moderate bilateral glenohumeral degenerative arthrosis. No acute fractures. No acute thoracic or lumbar spine fracture. Moderate to severe thoracic and lumbar spine multilevel degenerative disc narrowing with anterior and posterior marginal endplate spurring. ?? IMPRESSION: ?? No acute traumatic findings in the chest, abdomen and pelvis. No acute thoracic or lumbar spine fractures. ? WSN: [id number] ? Ordering Physician: Jelena Fitzgerald?? Signature Line Dictated By: ?Caity Sullivan MD Dictated Date/Time: ?12/08/23 1:33 pm Reviewed By: ?Caity Sullivan MD Signed By: ? Caity Sullivan MD Signed Date/Time: ? 12/08/23 1:33 pm Transcribed By: ? CSB Transcribed Date/Time: ?12/08/23 1:21 pm ?? CT Head/Brain W/O Contrast Event Date: 12/08/2023 12:57:51 EDT Updated: 12/08/2023 15:[address] Head/Brain W/O Contrast This document has an image Reason For Exam Head trauma, mod-severe;Other: RESULT: CT Head/Brain W/O Contrast CT of the head, cervical spine and facial bones dated December 08, 2023. No prior studies are available. ?? HISTORY: Pain secondary to trauma. ?? FINDINGS: CT of the head was performed with multislice acquisition from the foramen magnum through the vertex. No intravenous contrast material was utilized. Axial, coronal, and sagittal reconstruction was performed. A weight based protocol using automatic tube modulation was??used to optimize exposure parameters. ?? Examination of the posterior fossa shows a normal size midline fourth ventricle. No mass, hemorrhage, or abnormal extra-axial fluid collection is identified. ?? Supratentorially, the lateral and third ventricles are normal in size, contour and position. No mass, hemorrhage, or abnormal extra-axial fluid collection is identified. Some minimal sulcal prominence is noted. ?? The mendoza-white matter differentiation is well preserved. No hyperdense vessel or loss of the insular ribbon is appreciated. ?? Visualized osseous structures, paranasal sinuses and orbits shows minimal mucosal thickening in theright sphenoid sinus and within both ethmoid sinuses right greater than left. The mastoid air cellsare clear. Hyperostosis frontalis interna is noted. ?? Evaluation of the cervical spine was performed from the skull base through the apices of the lungs with axial, coronal, and sagittal reconstruction. A weight based protocol using automatic tube modulation was used to optimize exposure parameters. ?? The vertebral bodies are normal in height. There is loss of intervertebral disc space height and osteophyte formation throughout. The facet joints align normally. No locked or perched facets are seen. Craniocervical articulation is anatomic. Prevertebral soft tissues are within normal limits. No epidural hematoma is seen. ?? Evaluation of the facial bones was performed with multislice acquisition through the facial bones. Axial, coronal, and sagittal reconstruction was performed. No intravenous contrast material was utilized. A weight based protocol using automatic tube modulation was used to optimize exposure parameters. ?? This examination shows no evidence of fracture. The bony neural septum is midline. Inez bullosa is noted in the middle turbinates. ?? Minimal subacute to chronic inflammatory changes are demonstrated in the right maxillary and bilateral ethmoid sinuses. ?? The ostiomeatal complexes are patent bilaterally. ?? The bony orbits are intact. ?? The globes are symmetric. ?? There is some increased soft tissue inflammation in the region of the left cheek. ?? The left thyroid shows a 3.5 cm nodule measuring 35 Hounsfield units. A product support sales representative image is 85 of series 308. ?? As visualized, the apices of the lungs show some biapical scarring right greater than left. ?? IMPRESSION: ?? No evidence of acute intracranial abnormality. ?? Degenerative changes in the spine without evidence of fracture or dislocation. ?? No evidence of fracture or dislocation in the orbits. ?? Minimal soft tissue stranding in the left cheek likely from previous trauma. ?? Left thyroid nodule. Ultrasound follow-up is recommended. ?? Examination [address], [id number]., [place] [address]. ?? Thank you for allowing me to participate in the care of this patient. WSN: [id number] ? Ordering Physician: Jelena Fitzgerald?? Signature Line Dictated By: ?Jamil Graves MD Dictated Date/Time: ?12/08/23 3:33 pm Reviewed By: ?Jamil Graves MD Signed By: ? Jamil Graves MD Signed Date/Time: ? 12/08/23 3:33 pm Transcribed By: ? CSB Transcribed Date/Time: ?12/08/23 1:36 pm ?? CT Head/Brain W/O Contrast CT Maxilloface W/O Contrast Event Date: 12/08/2023 12:57:51 EDT Updated: 12/08/2023 15:[address] Maxilloface W/O Contrast This document has an image Reason For Exam Facial trauma, blunt;Other: RESULT: CT Maxilloface W/O Contrast CT of the head, cervical spine and facial bones dated December 08, 2023. No prior studies are available. ?? HISTORY: Pain secondary to trauma. ?? FINDINGS: CT of the head was performed with multislice acquisition from the foramen magnum through the vertex. No intravenous contrast material was utilized. Axial, coronal, and sagittal reconstruction was performed. A weight based protocol using automatic tube modulation was used to optimize exposure parameters. ?? Examination of the posterior fossa shows a normal size midline fourth ventricle. No mass, hemorrhage, or abnormal extra-axial fluid collection is identified. ?? Supratentorially, the lateral and third ventricles are normal in size, contour and position. No mass, hemorrhage, or abnormal extra-axial fluid collection is identified. Some minimal sulcal prominence is noted. ?? The mendoza-white matter differentiation is well preserved. No hyperdense vessel or loss of the insular ribbon is appreciated. ?? Visualized osseous structures, paranasal sinuses and orbits shows minimal mucosal thickening in theright sphenoid sinus and within both ethmoid sinuses right greater than left. The mastoid air cellsare clear. Hyperostosis frontalis interna is noted. ?? Evaluation of the cervical spine was performed from the skull base through the apices of the lungs with axial, coronal, and sagittal reconstruction. A weight based protocol using automatic tube modulation was used to optimize exposure parameters. ?? The vertebral bodies are normal in height. There is loss of intervertebral disc space height and osteophyte formation throughout. The facet joints align normally. No locked or perched facets are seen. Craniocervical articulation is anatomic. Prevertebral soft tissues are within normal limits. No epidural hematoma is seen. ?? Evaluation of the facial bones was performed with multislice acquisition through the facial bones. Axial, coronal, and sagittal reconstruction was performed. No intravenous contrast material was utilized. A weight based protocol using automatic tube modulation was used to optimize exposure parameters. ?? This examination shows no evidence of fracture. The bony neural septum is midline. Inez bullosa is noted in the middle turbinates. ?? Minimal subacute to chronic inflammatory changes are demonstrated in the right maxillary and bilateral ethmoid sinuses. ?? The ostiomeatal complexes are patent bilaterally. ?? The bony orbits are intact. ?? The globes are symmetric. ?? There is some increased soft tissue inflammation in the region of the left cheek. ?? The left thyroid shows a 3.5 cm nodule measuring 35 Hounsfield units. A product support sales representative image is 85 of series 308. ?? As visualized, the apices of the lungs show some biapical scarring right greater than left. ?? IMPRESSION: ?? No evidence of acute intracranial abnormality. ?? Degenerative changes in the spine without evidence of fracture or dislocation. ?? No evidence of fracture or dislocation in the orbits. ?? Minimal soft tissue stranding in the left cheek likely from previous trauma. ?? Left thyroid nodule. Ultrasound follow-up is recommended. ?? Examination [address], [address]., [place] [address]. ?? Thank you for allowing me to participate in the care of this patient. WSN: [id number] ? Ordering Physician: Jelena Fitzgerald?? Signature Line Dictated By: ?Jamil Graves MD Dictated Date/Time: ?12/08/23 3:33 pm Reviewed By: ?Jamil Graves MD Signed By: ? Jamil Graves MD Signed Date/Time: ? 12/08/23 3:33 pm Transcribed By: ? CSB Transcribed Date/Time: ?12/08/23 1:36 pm ?? CT Cervical Spine W/O Contrast Event Date: 12/08/2023 12:57:51 EDT Updated: 12/08/2023 15:[address] Cervical Spine W/O Contrast This document has an image Reason For Exam Neck trauma, dangerous injury mechanism;Other: RESULT: CT Cervical Spine W/O Contrast CT of the head, cervical spine and facial bones dated December 08, 2023. No prior studies are available. ?? HISTORY: Pain secondary to trauma. ?? FINDINGS: CT of the head was performed with multislice acquisition from the foramen magnum through the vertex. No intravenous contrast material was utilized. Axial, coronal, and sagittal reconstruction was performed. A weight based protocol using automatic tube modulation was used to optimize exposure parameters. ?? Examination of the posterior fossa shows a normal size midline fourth ventricle. No mass, hemorrhage,??or abnormal extra-axial fluid collection is identified. ?? Supratentorially, the lateral and third ventricles are normal in size, contour and position. No mass, hemorrhage, or abnormal extra-axial fluid collection is identified. Some minimal sulcal prominence is noted. ?? The mendoza-white matter differentiation is well preserved. No hyperdense vessel or loss of the insular ribbon is appreciated. ?? Visualized osseous structures, paranasal sinuses and orbits shows minimal mucosal thickening in theright sphenoid sinus and within both ethmoid sinuses right greater than left. The mastoid air cellsare clear. Hyperostosis frontalis interna is noted. ?? Evaluation of the cervical spine was performed from the skull base through the apices of the lungs with axial, coronal, and sagittal reconstruction. A weight based protocol using automatic tube modulation was used to optimize exposure parameters. ?? The vertebral bodies are normal in height. There is loss of intervertebral disc space height and osteophyte formation throughout. The facet joints align normally. No locked or perched facets are seen. Craniocervical articulation is anatomic. Prevertebral soft tissues are within normal limits. No epidural hematoma is seen. ?? Evaluation of the facial bones was performed with multislice acquisition through the facial bones. Axial, coronal, and sagittal reconstruction was performed. No intravenous contrast material was utilized. A weight based protocol using automatic tube modulation was used to optimize exposure parameters. ?? This examination shows no evidence of fracture. The bony neural septum is midline. Inez bullosa is noted in the middle turbinates. ?? Minimal subacute to chronic inflammatory changes are demonstrated in the right maxillary and bilateral ethmoid sinuses. ?? The ostiomeatal complexes are patent bilaterally. ?? The bony orbits are intact. ?? The globes are symmetric. ?? There is some increased soft tissue inflammation in the region of the left cheek. ?? The left thyroid shows a 3.5 cm nodule measuring 35 Hounsfield units. A product support sales representative image is 85 of series 308. ?? As visualized, the apices of the lungs show some biapical scarring right greater than left. ?? IMPRESSION: ?? No evidence of acute intracranial abnormality. ?? Degenerative changes in the spine without evidence of fracture or dislocation. ?? No evidence of fracture or dislocation in the orbits. ?? Minimal soft tissue stranding in the left cheek likely from previous trauma. ?? Left thyroid nodule. Ultrasound follow-up is recommended. ?? Examination 63899, [address]., [place] [address]. ?? Thank you for allowing me to participate in the care of this patient. WSN: [id number] ? Ordering Physician: Jelena Fitzgerald?? Signature Line Dictated By: ?Jamil Graves MD Dictated Date/Time: ?12/08/23 3:33 pm Reviewed By: ?Jamil Graves MD Signed By: ? Jamil Graves MD Signed Date/Time: ? 12/08/23 3:33 pm Transcribed By: ? CSB Transcribed Date/Time: ?12/08/23 1:36 pm ?? Chest Single Frontal View Event Date: 12/08/2023 12:43:10 EDT Updated: 12/08/2023 13:07 EDT XR Chest Single Frontal View This document has an image Reason For Exam Pain;Other: RESULT: Chest Single Frontal View Chest Single Frontal View ?? Reason: Other:; Pain; Clinical Question(s): Other:; Fracture, pneumothorax, pulmonary contusion / Other:? COMPARISON: Subsequent CT. ?? FINDINGS: ?? LINES AND TUBES:?? None. ?? LUNGS AND PLEURA: Low lung volumes with mild basilar atelectasis. Lungs are otherwise clear with no definite consolidation.?? No pleural effusion.?? No pneumothorax. ?? HEART, MEDIASTINUM AND DUTCH:?? Heart is normal in size. Trachea is deviated to the right which may be due to left thyroid nodule. ?? BONES AND SOFT TISSUES:?? No acute abnormality. ? IMPRESSION: ?? No evidence of acute abnormality. ? WSN: [id number] ? Ordering Physician: Jelena Fitzgerald?? Signature Line Dictated By: ?Carlos Albarado MD Dictated Date/Time: ?12/08/23 1:03 pm Reviewed By: ?Carlos Albarado MD Signed By: ? Carlos Albarado MD Signed Date/Time: ? 12/08/23 1:03 pm Transcribed By: ? CSB Transcribed Date/Time: ?12/08/23 1:03 pm ?? Chest Single Frontal View Note * Anjali Pryor RN: PERFORM Event Display: Discharge/Transfer Note Hospital Authored Date: [id number] Nursing Discharge Note Entered On: 12/09/2023 15:55 EDT Performed On: 12/09/2023 15:55 EDT by Anjali Pryor RN Nursing Discharge Note 2 Discharge Time : 12/09/2023 3:50 EDT Discharge Level of Care at Discharge : shelter facility Patient Left Unit Via : Ambulance Patient Accompanied Off Unit with : Ambulance/Chair Van Personnel Handover Given to Transport Personnel : Yes DC Instructions Provided & Signed by Pt : Unable Patient Understands D/C Instructions : Unable Verbalized Understanding of D/C Plan By : Responsible adult Patient Instructions Discharge Signed : Yes Did Pt have Specialty Bed or Wound Vac : No Anjali Pryor RN - 12/09/2023 15:55 EDT * Prasanna Guillaume MD: PERFORM, SIGN, VERIFY Event Display: Discharge/Transfer Note Hospital Authored Date: [id number] Patient: CORA PRESCOTT Age: 88 years Sex: Female : 1935 Associated Diagnoses: None Author: Prasanna Guillaume MD Discharge Information Principal Observation Diagnosis Alzheimer's dementia. Bipolar disorder. Schizophrenia. Fall. Hospital Course Typed narrative 88yo F w other pmhx of bipolar disorder, schizophrenia, GERD, iron def anemia on Fe and Vit C, chronic pain syndrome on Fentanyl patch which was changed yesterday on 12/07. She was sent from her SNF, [facility] [place] for an unwitnessed fall as cat2 trauma with head strike. ?LOC, -EtOH, GCS 15. She had BP of 87/53 in L arm and 105/70 n R arm, HR 83, RR 16 and o2 sats of 95% on RA. Per EMS she had blood in nares/ mouth and she is not on blood thinners per medical record sent with her. She was evaluated by trauma team. Her neck collar was removed after Imaging and labs are unremarkable per trauma surgery : 88yoF cat2 trauma s/p fall with headstrike. ?LOC, -EtOH, GCS 15.Patient received a chest xray that showed no acute abnormalities. Patient additionally received a right wrist X-ray that showed chronicchanges but no new acute fracture. Patient received a ct head, neck, chest, abd/pelvis, all of which were negative. In the setting of no traumatic injuries, patient was admitted to medicine. This morning on tertiary exam, patient had pain and difficulty moving her right leg. She also has ecchymosis pain in her right wrist. Possible she fell on that side. Her wrist was imaged but not her femur. X-ray femur and pelvis negative for fracture. Injuries None Interventions None Patient when seen on December 08 by physical therapy and medical along with trauma team has no traumatic injury she has progressive dementia for that she is needs to be optimized on her antipsychotics she is on olanzapine which has been rescheduled to be 2.5 mg at 4 PM and later in the day same 5 mg at 8 PM with as needed 2.5 as needed basis along with risperidone in the morning. I spoke to care team at [facility] care of Dr. Jett spoke to Marleni care plan discussed patient has beenruled out for any urinary tract infection she has a progress of dementia with and agitation along with schizophrenia needs [facility] for long-term placement that needs to be spoken to the family or healthcare proxy event. I tried to reach Cathy her friend at [phone] number but not available. Given circumstances that she had a fall which was mechanical found to be having behind fluids IV fluids given mildly orthostatic on on presentation after fluids blood pressure is in upper 100s to 110s asymptomatic. Examination remains unchanged she was on and off yelling and shouting for pain medications she is on fentanyl patch which has been replaced yesterday we will avoid other narcotics at this time continue with Tylenol full dose 3 times a day Care plan as documented lab data chart reviewed PT evaluation done patient will be going back to [facility] care in [facility] today December 08 had been accepted by rn care transition at [place] Significant Results Results: Laboratory : LABORATORY 12/08/2023 14:45 EDT Barbiturate Screen, Urine NONE DETECTED Cannabinoid Screen, Urine NONE DETECTED Cocaine Metabolite Screen, Urine NONE DETECTED Benzodiazepine Screen, Urine NONE DETECTED Amphetamine Screen, Urine NONE DETECTED Opiate Screen, Urine NONE DETECTED Appear/Color, Urine COLORLESS Specific Bushnell, Urine 1.019 pH, Urine 7.0 Albumin, Urine NEGATIVE Glucose, Urine NEGATIVE Ketones, Urine NEGATIVE Bilirubin, Urine NEGATIVE Hemoglobin, Urine NEGATIVE Nitrite, Urine NEGATIVE Leukocyte, Urine NEGATIVE Urobilinogen NORMAL mg/dL WBC's, Urine 1 /HPF RBC's, Urine 1 /HPF Squamous Epith <1 /HPF 12/08/2023 13:46 EDT COVID-19 by RT-PCR NEGATIVE 12/08/2023 12:31 EDT Blood Type A Negative Antibody Screen Negative 12/08/2023 12:31 EDT WBC 8.2 k/mm3 RBC 3.43 m/mm3 L Hgb 8.6 Gm/dL L Hct 28.4 % L MCV 82.8 femtoliters MCH 25.1 pg L MCHC 30.3 g/dL L Platelet Count 276 k/mm3 RDW-SD 59.0 femtoliters H MPV 10.9 femtoliters Nucleated RBC (Automated) 0.0 #/100 WBC'S Abs. NRBC 0.0 k/mm3 Abs. Neut 5.3 k/mm3 Abs. Lymph 1.3 k/mm3 Abs. Republic 1.2 k/mm3 H Abs. Eo 0.3 k/mm3 Abs. Baso 0.1 k/mm3 Neut % 64.4 % Lymph % 15.8 % Republic % 14.8 % H Eos % 4.0 % Baso % 0.6 % Imm Gran 0.4 % Abs. Imm Gran 0.0 k/mm3 Sodium 140 mmol/L Potassium 4.8 mmol/L Chloride 105 mmol/L Bicarbonate Level 22 mmol/L Anion Gap 13 Glucose Level 90 mg/dL BUN 14 mg/dL Creatinine-Blood 0.87 mg/dL Estimated GFR Creatinine 64 ML/MIN/1.73 M2 Calcium 8.7 mg/dL Amylase 72 units/L Lactate 1.2 mmol/L TSH 1.30 uIU/mL Ethanol, Serum or Plasma NONE DETECTED mg/dL , Imaging : RADIOLOGY 12/09/2023 9:53 EDT XR Femur 2 Views Right Femur 2 Views Right Pelvis 1 or 2 Views RESULT: Pelvis 1 or 2 Views 12/08/2023 13:16 EDT Wrist Comp Min 3 Views Right Wrist Comp Min 3 Views Right 12/08/2023 13:[address] Chest W/ Contrast CT Chest W/ Contrast CT Lumbar Spine W/ Contrast RESULT: CT Lumbar Spine W/ Contrast CT Thoracic Spine W/ Contrast RESULT: CT Thoracic Spine W/ Contrast CT Abd/Pelvis W/ IV Contrast Only RESULT: CT Abd/Pelvis W/ IV Contrast Only 12/08/2023 12:[address] Head/Brain W/O Contrast CT Head/Brain W/O Contrast CT Maxilloface W/O Contrast RESULT: CT Maxilloface W/O Contrast CT Cervical Spine W/O Contrast RESULT: CT Cervical Spine W/O Contrast 12/08/2023 12:43 EDT Chest Single Frontal View Chest Single Frontal View . Discharge Plan MEDICATION LIST (Selected) Prescriptions Prescribed olanzapine 2.5 mg oral tablet: 2.5 mg, 1, tablet, By Mouth, Daily, # 30 tablet, Refills 0, Tot. Refills 0, Maintenance, 12/09/23 12:33:00 EDT, Do Not Route, give at 4 pm olanzapine 2.5 mg oral tablet: 5 mg, 2, tablet, By Mouth, Daily at bedtime, # 60 tablet, Refills 0,Tot. Refills 0, Maintenance, 12/09/23 12:34:00 EDT, Do Not Route, Give at 8 pm Documented Medications Documented Tylenol 325 mg oral tablet: 975 mg, By Mouth, 3 times a day, Refills 0, Maintenance, 12/09/23 12:35:00 EDT, Partial fill upon patient request if the prescription is for a schedule II opioid drug. donepezil 5 mg oral tablet: 5 mg, 1, tablet, By Mouth, Daily at bedtime, # 90 tablet, Refills 0, Maintenance, 12/09/23 12:32:00 EDT, Partial fill upon patient request if the prescription is for a schedule II opioid drug. fentaNYL 25 mcg/hr transdermal film, extended release: 1 patch, Topically, Every 72 hours, 0 Refills, Maintenance, 12/09/23 12:31:00 EDT, Patch, Partial fill upon patient request if the prescription is for a schedule II opioid drug. olanzapine 5 mg oral tablet: 2.5 mg, By Mouth, 2 times a day, PRN, moderate, Refills 0, Maintenance, Agitation, 12/09/23 12:35:00 EDT, Partial fill upon patient request if the prescription is for a schedule II opioid drug. risperiDONE 1 mg oral tablet: 1 mg, 1, tablet, By Mouth, Daily, # 30 tablet, Refills 0, Maintenance, 12/09/23 12:31:00 EDT, Partial fill upon patient request if the prescription is for a schedule II opioid drug. Patient Education/Follow Up Follow Up with: PCP Not on Staff. * Konstantin TORIBIO, Anjali: PERFORM, MODIFY Event Display: Patient Education/Instruction Authored Date: [id number] Inpatient Adult Discharge Instructions. [address] [id number] Name: CORA PRESCOTT : 1935?? Visit: 12/08/2023 12:15?? Current Date: 12/09/2023 14:51 ?? Account: [id number]?? Inpatient Adult Discharge Instructions We would like to thank you for allowing us to assist you with your healthcare needs. The following includes patient education materials and information regarding your injury/illness. Our entire staffstrives to provide an excellent experience for our patients and their families. PLEASE ENSURE YOU FOLLOW-UP PER THE INSTRUCTIONS BELOW! ?? YOUR OPINION IS IMPORTANT TO US! Please complete the survey you may receive by mail or email. Your feedback will be used to make improvements to the healthcare experiences of our patients and their families. Surveys are administered by [employer] ?? If further treatment with your primary care physician or another doctor is recommended, it is important for you to keep the appointment. Call your primary care physician or return to the Emergency Department immediately if your condition worsens, fails to improve, or new symptoms develop. If you need to find a doctor, you can call [facility] [employer] [facility] for a referral at [phone] or toll free at [phone] or log in to [email or web address].. ?? [facility], in keeping with [facility] guidance, no longer requires face masks for staff, patientsor visitors in most situations. Similiar to time spent indoors at other locations, there is the chance that you were exposed to repiratory viruses during your time with us (such as flu or COVID-19). If you develop symptoms concerning for a viral respiratory infection, please seek testing (and treatment if indicated) from your medical provider or home test kit. ?? You can view and manage your care through the patient portal or by using a health care anastacio of your choosing. [employer] is a website that allows you to securely view your medical information including your hospital discharge summary, office visit summaries, medications and follow-up visits. You can also request appointments, renew medications, and request access to your medical information using a health care anastacio of your choosing, or just ask a question. You can enroll at [email or web address] or register during your next office visit. You have been discharged from [facility], Patient Care Unit: D3B??. If you have any questions regarding these instructions, including results of studies pending, afteryou leave, please call us and we will be happy to assist you 04/11. [facility] Your Care Team Attending Physician Prasanna Guillaume MD?? Consulting Providers Prasanna Guillaume MD?? Discharging Providers Prasanna Guillaume MD Reason for Your Visit syncope, frequent falls, AMS?? Your Diagnosis Alzheimer's dementia Bipolar disorder Chronic GERD Chronic pain syndrome Fall Iron deficiency anemia Schizophrenia Syncope Tests Performed Below is a partial list of the tests performed during your hospitalization. You may have had other tests and procedures not included in this list. Please discuss all test results with your provider. Alcohol Level Amphetamine Urine Screen Amylase Barbiturate Urine Screen Basic Metabolic Panel Benzodiazepine Urine Screen Cannabinoid Urine Screen CBC w/ Differential Cocaine Urine Screen COMPLETE URINALYSIS COVID-19 (Novel Coronavirus), Rapid PCR Lactic Acid Level Opiate Screen Urine TSH WITH REFLEX TO FT4 Type and Screen CT Abd/Pelvis W/ IV Contrast Only CT Cervical Spine W/O Contrast CT Chest W/ Contrast CT Head/Brain W/O Contrast CT Lumbar Spine W/ IV Contrast CT Maxilloface W/O Contrast CT Thoracic Spine W/ IV Contrast XR Chest Single Frontal View XR Femur 2 Views Right XR Pelvis 1 or 2 Views XR Wrist Comp Min 3 Views Right Add On Lab Order?? Amphetamine Urine Screen?? Amylase?? Barbiturate Urine Screen?? Basic Metabolic Panel?? Benzodiazepine Urine Screen?? CBC w/ Differential?? COVID-19 (Novel Coronavirus), Rapid PCR?? CT Abd/Pelvis W/ IV Contrast Only?? CT Cervical Spine W/O Contrast?? CT Chest W/ Contrast?? CT Head/Brain W/O Contrast?? CT Lumbar Spine W/ Contrast (CT Lumbar Spine W/ IV Contrast)?? CT Maxilloface W/O Contrast?? CT Thoracic Spine W/ Contrast (CT Thoracic Spine W/ IV Contrast)?? Cannabinoid Urine Screen?? Cocaine Urine Screen?? Complete Urinalysis?? Ethanol Level (Alcohol Level)?? Hold Red Top Tube (HOLD RED TUBE)?? INR (PT (INR))?? Lactic Acid Level?? Opiate Screen Urine?? TSH with T4 Reflex (Adults Only) (TSH WITH REFLEX TO FT4)?? Type and Screen?? Chest Single Frontal View (XR Chest Single Frontal View)?? Femur 2 Views Right (XR Femur 2 Views Right)?? Pelvis 1 or 2 Views?? Wrist Comp Min 3 Views Right (XR Wrist Comp Min 3 Views Right)?? Primary Care Provider Darryl Rios III, MD?? Advance Directive Health Care Proxy on File No Patient refuses to discuss Discharge Vitals Temperature: 98.2 DegF Weight: 60.1 kg Pulse Rate: 88 bpm ?? Respiratory Rate: 18 br/min ?? Systolic Blood Pressure: 117 mm Hg ?? Diastolic Blood Pressure: 61 mm Hg ?? Oxygen Saturation: 97 % ?? Studies Pending All studies ordered during this hospital stay have been completed unless listed below. Please discuss all pending results with your provider listed above in these instructions. ?? Add On Lab Order?? Hold Red Top Tube (HOLD RED TUBE)?? INR (PT (INR))?? What to do next Instructions From Your Doctor ?? Orders? 12/09/23 12:43:00 EDT?? You Need to Schedule the Following Appointments Follow Up with??PCP Not on Staff When:??In 0 days Discharge Medications CORA PRESCOTT :1935 Visit Date:12/08/2023 Medications: Please continue your medications until treatment is completed or stopped by your provider. Medications not listed below should be discontinued. Discuss any questions related to medications with your provider. What How Much When Instructions Next Dose New Acetaminophen (Tylenol 325 mg oral tablet) 975 Milligram Oral 3 times a day 12/09/2023 4:00 pm or later Changed Olanzapine (olanzapine 2.5 mg oral tablet) 1 tab(s) Oral Daily 12/10/2023 in the morning Changed Olanzapine (olanzapine 2.5 mg oral tablet) 2 tab(s) Oral Daily at Bedtime Duration: 30 Days 12/09/2023, at bedtime Changed Olanzapine (olanzapine 5 mg oral tablet) 2.5 Milligram Oral Twice a day as needed for Agitation moderate ?? As needed Unchanged Donepezil (donepezil 5 mg oral tablet) 1 tab(s) Oral Daily at Bedtime 12/09/2023, at bedtime Unchanged Fentanyl (fentaNYL 25 mcg/ hr transdermal film, extended release) 1 patch(es) Topically Every 72 hours Pt currently has patch on, due for change 12/10/2023, per label on patch Unchanged Risperidone (risperiDONE 1 mg oral tablet) 1 tab(s) Oral Daily 12/10/2023 in the morning Prescription Given During Visit Olanzapine (olanzapine 2.5 mg oral tablet) - 2 tablet = 5 mg, By Mouth, Daily at bedtime, # 60 tablet, 0 Refills?? Olanzapine (olanzapine 2.5 mg oral tablet) - 1 tablet = 2.5 mg, By Mouth, Daily, # 30 tablet, 0 Refills?? Laboratory Results Below is a partial list of the most recent Laboratory test results done prior to this discharge. You may have had other tests and procedures not included in this list. Please discuss all test resultswith your provider. Alcohol Level (12/08/2023) ???Ethanol, Serum or Plasma - NONE DETECTED Amphetamine Urine Screen (12/08/2023) ???Amphetamine Screen, Urine - NONE DETECTED Amylase (12/08/2023) ???Amylase - 72 units/L Barbiturate Urine Screen (12/08/2023) ???Barbiturate Screen, Urine - NONE DETECTED Basic Metabolic Panel (12/08/2023) ???Sodium - 140 mmol/L???Potassium - 4.8 mmol/L???Chloride - 105 mmol/L???Bicarbonate Level - 22 mmol/L???Anion Gap - 13???Glucose Level - 90 mg/dL???BUN - 14 mg/dL???Creatinine-Blood - 0.87 mg/dL???Estimated GFR Creatinine - 64 ML/MIN/1.73 M2???Calcium - 8.7 mg/dL Benzodiazepine Urine Screen (12/08/2023) ???Benzodiazepine Screen, Urine - NONE DETECTED Cannabinoid Urine Screen (12/08/2023) ???Cannabinoid Screen, Urine - NONE DETECTED CBC w/ Differential (12/08/2023) ???WBC - 8.2 k/mm3???RBC - 3.43 m/mm3???Hgb - 8.6 Gm/dL???Hct - 28.4 %???MCV - 82.8 femtoliters???MCH - 25.1 pg???MCHC - 30.3 g/dL???Platelet Count - 276 k/mm3???RDW-SD - 59.0 femtoliters???MPV - 10.9 femtoliters???Nucleated RBC (Automated) - 0.0 #/100 WBC'S???Abs. NRBC - 0.0 k/mm3???Abs. Neut - 5.3 k/mm3???Abs. Lymph - 1.3 k/mm3???Abs. Republic - 1.2 k/mm3???Abs. Eo - 0.3 k/mm3???Abs. Baso - 0.1 k/mm3???Neut % - 64.4 %???Lymph % - 15.8 %???Republic % - 14.8 %???Eos % - 4.0 %???Baso % - 0.6 %???Imm Gran - 0.4 %???Abs. Imm Gran - 0.0 k/mm3 Cocaine Urine Screen (12/08/2023) ???Cocaine Metabolite Screen, Urine - NONE DETECTED COMPLETE URINALYSIS (12/08/2023) ???Appear/Color, Urine - COLORLESS???Specific Bushnell, Urine - 1.019???pH, Urine - 7.0???Albumin, Urine - NEGATIVE???Glucose, Urine - NEGATIVE???Ketones, Urine - NEGATIVE???Bilirubin, Urine - NEGATIVE???Hemoglobin, Urine - NEGATIVE???Nitrite, Urine - NEGATIVE???Leukocyte, Urine - NEGATIVE???Urobilinogen - NORMAL? ?WBC's, Urine - 1 /HPF? ?RBC's, Urine - 1 /HPF? ?Squamous Epith - <1 /HPF COVID-19 (Novel Coronavirus), Rapid PCR (12/08/2023) ???COVID-19 by RT-PCR - NEGATIVE Lactic Acid Level (12/08/2023) ???Lactate - 1.2 mmol/L Opiate Screen Urine (12/08/2023) ???Opiate Screen, Urine - NONE DETECTED TSH WITH REFLEX TO FT4 (12/08/2023) ???TSH - 1.30 uIU/mL Type and Screen (12/08/2023) ???Blood Type - A Negative???Antibody Screen - Negative You will be contacted within 72 hours with your results. Allergies (NKA means No Known Allergies) NKA Problems Active Problems??(1) Fall?? Education Materials Below is the list of Educational Leaflet Providered with your Discharge Instructions. Valuables and Belongings I fully understand and agree that [facility] accepts no responsibility for all my personal property including clothing, toilet articles, radios, jewelry, dentures, hearing aids, rings, money, or any other property that is in my possession or is brought to me after admission. I understand certain valuables may be placed in a hospital safe for a short period of time. I understand that the hospital is not liable for loss or damage due to accident, fire, or other natural occurrence while said property is in the safe. I accept full responsibility for any personal property that I keep with me, and will not hold the hospital responsible in case of loss or disappearance. I acknowledge that i have been encouraged to send valuables and belongings home. ?? Review of Valuable and Belonging List: With patient Date for Pt to Sign Valuables/Belongings: 12/09/23 00:08:00 ?? Other Discharge Information ? Case Management Discharge Plan?? Discharge Plan?? Discharge Agency Information?? Discharge Level of Care at Discharge: shelter facility Name of Agency #1: [facility] ?? Pulmonary Rehab Status?? Pulmonary Rehab Discharge Status?? Respiratory Rate: 18 br/min ? Common Emergency Awareness Tips IS IT A STROKE? Act FAST and Check for these signs: FACE Does the face look uneven? ARM Does one arm drift down? SPEECH Does their speech sound strange? TIME Call at any sign of stroke ?? Heart Attack Signs Chest discomfort: Most heart attacks involve discomfort in the center of the chest and lasts more than a few minutes, or goes away and comes back. It can feel like uncomfortable pressure, squeezing, fullness or pain. Discomfort in upper body: Symptoms can include pain or discomfort in one or both arms, back, neck, jaw or stomach. Shortness of breath: With or without discomfort. Other signs: Breaking out in a cold sweat, nausea, or lightheaded. Remember, MINUTES DO MATTER. If you experience any of these heart attack warning signs, call to get immediate medical attention! ?? Smoking can increase your chances of developing chronic health problems and can cause harmful effects to other family members in your house. If you smoke, you are strongly encouraged to quit. Please call [facility] [employer] [facility] at [phone] or [phone]) or log in to [email or web address] for referrals to smoking cessation programs. ?? 266 Suicide & Crisis Lifeline is available 04/11 if you or someone you know needs to find a reason to keep living. By calling 830 you'll be connected to a skilled, trained counselor at a crisis center in your area. INPATIENT DISCHARGE INSTRUCTIONS SIGNATURE PAGE [facility] Location:[facility] Registration Date and Time:12/08/2023 12:15 EDT Primary Care Physician: Not on Staff, PCP Attending Physician: Markell QUINONES, Prasanna Hickman, CORA BOYKIN, have received the above patient education materials/instructions and have verbalized understanding. If ambulance or transport services are being used I further acknowledge being given a choice of service. ?? If you need to contact me, please call me at this number: . Patient/Label Maker Name: Patient/Label Maker Signature: Relationship to Patient: Witness Name/Signature: Date: * Prasanna Guillaume MD K: PERFORM, SIGN, VERIFY Event Display: Patient Education Handout Authored Date: Patient Care team information Care Team Personnel Name: Placido Schmitt RN Position: [facility] RN Member Role: Primary Care Nurse Name: Not on Staff, PCP Position: [facility] Physician (General Medicine) Member Role: PCP Name: Lisa Angulo RN Position: [facility] RN Member Role: Primary Care Nurse Care Team Related Persons Name: DR SIN LOCKE
[2023-12-11 08:00] VITALS: BP 136/61; PULSE 74; RESP 20; TEMP 36.7; O2SAT 96
--- NOTE | 2023-12-11 09:02 | PC.NURSE ---
Calm and cooperative, denies pain or discomfort
--- NOTE | 2023-12-11 09:05 | MHC.CM.ED ---
Addendum entered by Zoey Sebastian 12/11/23 12:19: [facility] [place] is able to accept patient back. Ismael MILLER booked for 3pm. Patient, Nany TORIBIO and [facility] aware. Original Note: Received case management consult from [facility]. Patient is a resident of [facility]. Return referral made in [facility] for patient to return. Continue to monitor for d/c needs.
[2023-12-11 10:00] VITALS: BP 125/62; PULSE 77; RESP 18; TEMP 36.7; O2SAT 96
--- NOTE | 2023-12-11 10:54 | MHC.EDTECH ---
this tech assumed care of pt at 0700, pt was assisted to bedside commode a few times to void, pt tolerated well and states no discomfort or pain. pt comfortable and clean.
--- NOTE | 2023-12-11 11:33 | PC.NURSE ---
pt calm, alert, oriented to self and situation. bruises on face and hands in various stages of healing. the pt states that she fell a couple of days ago. She says she wants to go home, bot back to [facility] but to her home. She says she is hungry. Pt given PBandJ and a breakfast tray. Eating now, reports no opinion on the food.
[2023-12-11] MEDS: QUEtiapine Fumarate 25 MG TABLET PO (12:13)
[2023-12-11] MEDS: risperiDONE 2 MG TABLET PO (12:13)
[2023-12-11 16:03] VITALS: BP 125/62; PULSE 77; RESP 18; TEMP 36.7; O2SAT 96
== END 2023-12-11 16:04 | disposition skilled nursing facility (03) ==
PROVIDERS: Emergency Provider Emergency Medicine; PCP Family Medicine
DX: F03.911 Unspecified dementia, unspecified severity, with agitation (principal); F91.8 Other conduct disorders; Z79.899 Other long term (current) drug therapy
CPT/HCPCS: 99284

== ENCOUNTER 2023-12-14 09:18 | Emergency (ER) | payer MEDICARE, MEDICAID, SELFPAY ==
[2023-12-14 09:32] VITALS: BP 134/69; PULSE 80; RESP 20; TEMP 37.1; O2SAT 98; BMI 23.5
--- NOTE | 2023-12-14 09:47 | ED_ITS ---
HPI - Psych General Chief Complaint: Psychiatric Symptoms Stated Complaint: SI Time Seen by Provider: 12/14/23 09:47 Source: patient, EMS, RN notes reviewed and other Mode of arrival: EMS Limitations: altered mental status History of Present Illness ED Provider: zeyad HPI Narrative: Patient is an 88-year-old female with history of dementia presenting to the emergency department from her facility after making suicidal statements prior to arrival. Patient denies suicidal ideation here and states that she does not want to be at her facility any longer. Denies homicidal ideation, auditory or visual hallucinations. Repeating home. Complains of mild low back pain, denies any other physical complaints. MD complaint: suicidal ideation and anxiety History of same: Yes Context: other (dementia) Related Data Home Medications ?Medication ?Instructions ?Recorded ?Confirmed esomeprazole magnesium 40 mg 40 mg PO DAILY 11/13/23 11/13/23 capsule,delayed release Previous Rx's ?Medication ?Instructions ?Recorded calcium carbonate (Antacid Ext Str 2.5 tab PO Q4H PRN Heartburn #30 11/20/23 (calcium carb)) tabs donepezil 5 mg tablet 5 mg PO BEDTIME #30 tabs 11/20/23 fentanyl 25 mcg/hr transdermal 25 mcg transdermal Q72H #5 ea 11/20/23 patch melatonin 3 mg tablet 6 mg (2 x 3 mg) PO BEDTIME PRN 11/20/23 Insomnia #30 tabs quetiapine 25 mg tablet 25 mg PO BID #60 tabs 11/20/23 risperidone 2 mg tablet 2 mg PO BID #60 tabs 11/20/23 levofloxacin 250 mg tablet 250 mg PO DAILY #5 tabs 12/01/23 cefuroxime axetil 250 mg tablet 250 mg PO BID #13 tabs 12/14/23 Allergies Allergy/AdvReac Type Severity Reaction Status Date / Time No Known Allergies Allergy Verified 12/14/23 09:35 Review of Systems 2 Review of Systems: Yes all other systems are reviewed and are negative Constitutional: Constitutional: Reports as per [facility] Past Medical History Medical History Chronic hip pain Vascular dementia with behavior disturbance Social History Social History Unable to assess alcohol history related to: Unable to respond Comment: 1:1 sitter at bedside Patient Tobacco Use Status: Tobacco use Unknown Advance Directives: No Advance Directives Information Provided: No Advance Directives Date on File: 09/10/23 Do you have a plan to hurt others: No Plan service: No Physical Exam 2 Vital Signs: Vital Signs: Last Vital Signs Temp 97.7 F 12/14/23 12:58 Pulse 80 12/14/23 12:58 Resp 13 12/14/23 12:58 BP 104/59 L 12/14/23 12:58 Pulse Ox 98 12/14/23 12:58 O2 Del Method Room Air 12/14/23 12:58 BMI result Body Mass Index 23.5 Vital signs have been reviewed and appear to be correct. Blood pressure normal. Heart rate normal. Respiratory rate normal. Temperature normal. Oxygen saturation normal. Const: General: cooperative, healthy appearing and no acute distress O rientation/consciousness: oriented to person HEENT: Head: Yes normocephalic Ears: external ears normal General nose exam: Normal external nose present Face and sinus: Yes face symmetric M outh: oropharynx normal and moist mucous membranes Throat: Yes uvula midline Eyes: Pupils: Equal, round and reactive pupils present Neck: Neck: Yes normal visual inspection and Yes supple Resp: Effort & Inspection: normal respiratory effort and able to speak in complete sentences Auscultation: clear to auscultation bilaterally Cardio: Rate: regular rate Rhythm: regular rhythm Heart sounds: S1 normal heart sound present and S2 normal heart sound present GI: Palpation (GI): Soft to palpation and nontender Auscultation: n ormoactive bowel sounds : General: Yes no CVA tenderness Back/Spine/Pelvis: Back: no CVA tenderness Skin: General skin exam: elasticity normal and turgor normal Neuro: General: oriented to person, moves all extremities, no focal motor deficits and CN's II-XI intact bilaterally Cranial nerves: Yes Equal, round and reactive pupils present Extrem: General: Yes full ROM, Yes no pedal edema and Yes no calf tenderness Course Reevaluation(s) Reevaluation #1: Patient increasingly agitated, repeatedly attempting to get out of bed despite bed alarm. Zyprexa ordered for agitation. Time: 13:23 Medications Administered Generic Name Dose Route Start Last Admin Trade Name Freq PRN Reason Stop Dose Admin Cefuroxime Axetil 250 mg 12/14/23 12:00 12/14/23 13:26 Cefuroxime Axetil 250 Mg Tablet PO 12/20/23 21:01 250 mg BID BALTAZAR Administration Discontinued Medications Generic Name Dose Route Start Last Admin Trade Name Hayley PRN Reason Stop Dose Admin Olanzapine 5 mg 12/14/23 13:18 12/14/23 13:26 Olanzapine 5 Mg Tablet PO 12/14/23 13:19 5 mg ONCE ONE Administration Quetiapine Fumarate 25 mg 12/14/23 09:52 12/14/23 10:17 Quetiapine Fumarate 25 Mg Tablet PO 12/14/23 09:53 25 mg ONCE ONE Administration Medical Decision Making Medical Decision Making [facility] Narrative: Patient is an 88-year-old female with history of dementia presenting to the emergency department from her facility after making suicidal statements prior to arrival. On exam patient is awake, A+Ox3, VS WNL, afebrile, normal neurological exam without focal deficits, physical exam findings as above. Given reported symptoms and physical exam findings, initial differential includes dementia, UTI, viral illness, electrolyte abnormality. Labs consistent with baseline, no electrolyte abnormalities. Viral serology negative. Ethanol negative, urine drug screen positive only for fentanyl which patient is prescribed. Urinalysis notable for 1+ leukocytes, 11-20 WBCs, 4+ bacteria, 11-20 epithelials. Given complaint of low back pain will treat for UTI at this time with cefuroxime. Per Ciarra from CARE team, patient does not need to be evaluated by them as she has known dementia and is from a dementia unit. Will discharge patient with prescription for cefuroxime. Follow-up with PCP. Differential Diagnosis Differential Diagnoses: The differential diagnosis associated with the presentation includes As per [facility] Admission/Observation Consideration of admission/observation: Escalation of care including admission/observation considered Patient would have been admitted to the hospital had their work up had any findings where hospital admission was appropriate and their clinical presentation warranted hospital admission. Consult Healthcare Provider Management of the patient was discussed with: Behavioral Health Provider Lab Data [facility] Lab Attestation statement: I reviewed the patient's lab results. As per [facility] 12/14/23 10:07 12/14/23 10:07 Labs: Lab Results 12/14/23 12/14/23 Range/Units 10:07 11:06 WBC 8.2 (4.8-10.8) X10*3/uL RBC 3.83 L (4.20-5.50) X10*6/uL Hgb 9.7 L (12.0-16.0) g/dl Hct 31.8 L (37.0-47.0) % MCV 83.0 (80.0-98.0) fL MCH 25.3 L (27.0-33.0) pg MCHC 30.5 L (31.0-35.0) g/dl RDW 21.0 H (11.0-16.0) % Plt Count 239 (160-400) X10*3/uL MPV 11.5 (9.4-12.3) fL Immature Gran % (Auto) 0.7 H (0.0-0.4) % Neut % (Auto) 64.5 (45-73) % Lymph % (Auto) 15.8 L (20-40) % [place] % (Auto) 15.1 H (2-11) % Eos % (Auto) 3.4 (0-4) % Baso % (Auto) 0.5 (0-2) % Lymph # (Auto) 1.3 (1.2-4.9) X10*3/uL [place] # (Auto) 1.2 (0.1-1.2) X10*3/uL Eos # (Auto) 0.3 (0.0-0.4) X10*3/uL Baso # (Auto) 0.0 (0.0-0.2) X10*3/uL Abs Immat Gran (auto) 0.06 H (0.00-0.03) X10*3/uL Absolute Neuts (auto) 5.3 (2.0-8.3) x10*3/uL Absolute Nucleated RBC 0.000 (0.0-0.012) X10*3/uL Nucleated RBC % (auto) 0.0 (0.0-0.2) /100WBC Sodium 140 (135-145) mmol/L Potassium 3.9 (3.3-5.1) mmol/L Chloride 106 (96-108) mmol/L Carbon Dioxide 23 (22-29) mmol/L Anion Gap 15 (12-20) BUN 16 (9-16) mg/dL Creatinine 0.86 (0.5-1.4) mg/dL Estim Creat Clear Calc 38.1 Estimated GFR > 60 Random Glucose 95 (60-115) mg/dL Calcium 9.4 (8.4-10.2) mg/dL Total Bilirubin 0.3 (0.0-1.0) mg/dL AST 13 (5-31) U/L ALT 11 (0-31) U/L Alkaline Phosphatase 62 (39-117) U/L Total Protein 6.7 (6.5-8.0) g/dL Albumin 3.8 (3.5-5.0) g/dL Urine Color Yellow Urine Appearance Cloudy Urine pH 6.0 (5.0-9.0) Ur Specific [place] 1.025 (1.005-1.025) Urine Protein Negative (Neg-Trace) mg/dL Urine Glucose (UA) Negative (Negative) mg/dL Urine Ketones Trace (Negative) mg/dL Urine Blood Negative (Negative) Urine Nitrite Negative (Negative) Ur Leukocyte Esterase Small (1+) H (Negative) Urine RBC 0-2 (0-2) /HPF Urine WBC 11-20 H (0-5) /HPF Ur Squamous Epith Cells 11-20 (0-2) /HPF Urine Bacteria 4+ (None Seen) Hyaline Casts 0-2 (0-2) /LPF Urine Opiates Screen Not Detected (Not Detect) Ur Buprenorphine Scrn Not Detected (Not Detect) ng/mL Ur Oxycodone Screen Not Detected (Not Detect) ng/mL Urine Methadone Screen Not Detected (Not Detect) ng/mL Urine Fentanyl Screen POSITIVE H (Not Detect) Ur Barbiturates Screen Not Detected (Not Detect) Ur Phencyclidine Scrn Not Detected (Not Detect) Ur Amphetamines Screen Not Detected (Not Detect) U Benzodiazepines Scrn Not Detected (Not Detect) Urine Cocaine Screen Not Detected (Not Detect) U Marijuana (THC) Screen Not Detected (Not Detect) Ethyl Alcohol < 10 mg/dL Influenza Type A (PCR) NEGATIVE (Negative) Influenza Type B (PCR) NEGATIVE (Negative) RSV RNA Qual (PCR) NEGATIVE (Negative) SARS-CoV-2 RNA (RT-PCR) NEGATIVE (Negative) External Record Review External record reviewed: Inpatient record, Office record and Outpatient record Prescription Management I considered prescription management with: Antibiotic Discharge Plan Discharge Clinical Impression: Urinary tract infection Patient Disposition: Xfer [facility] Transfer Details: return to [facility] Instructions: Urinary Tract Infection in Older Adults (ED) Additional Instructions: was evaluated in the emergency department today after making suicidal statements. Her evaluation showed evidence of urinary tract infection. She is being treated with a course of antibiotics, please ensure that she completes the full course as prescribed. Follow up with her primary care provider. Return to the emergency department with new or concerning symptoms. Prescriptions: New cefuroxime axetil 250 mg tablet 250 mg PO BID Qty: 13 0RF No Action esomeprazole magnesium 40 mg capsule,delayed release(DR/EC) 40 mg PO DAILY quetiapine 25 mg Tablet 25 mg PO BID Qty: 60 0RF donepezil 5 mg Tablet 5 mg PO BEDTIME Qty: 30 0RF Antacid Ext Str (calcium carb) 300 mg (750 mg) Tablet,Chewable 2.5 tab PO Q4H PRN (Reason: Heartburn) Qty: 30 0RF melatonin 3 mg Tablet 6 mg PO BEDTIME PRN (Reason: Insomnia) Qty: 30 0RF risperidone 2 mg Tablet 2 mg PO BID Qty: 60 0RF fentanyl 25 mcg/hr Patch 72 Hour 25 mcg transdermal Q72H Qty: 5 0RF Rx Instructions: Partial Fill upon patient request. levofloxacin 250 mg tablet 250 mg PO DAILY Qty: 5 0RF Print Language: Bengali
--- NOTE | 2023-12-14 10:08 | PC.NURSE ---
Labs collected and sent as ordered.
[2023-12-14 10:16] LABS: MANUAL DIFF FLAG NO
[2023-12-14] MEDS: QUEtiapine Fumarate 25 MG TABLET PO (10:17)
[2023-12-14 10:18] LABS: Basophils Percent Auto 0.5 % (0-2); Eosinophils Absolute Auto 0.3 X10*3/uL (0.0-0.4); Eosinophils Percent Auto 3.4 % (0-4); Hematocrit 31.8 % (37.0-47.0); Hemoglobin 9.7 g/dl (12.0-16.0); Imm Gran Abs Auto 0.06 X10*3/uL (0.00-0.03); Imm Gran Pct Auto 0.7 % (0.0-0.4); Lymphocytes Absolute Auto 1.3 X10*3/uL (1.2-4.9); Lymphocytes Percent Auto 15.8 % (20-40); Mean Corpuscular HGB Conc 30.5 g/dl (31.0-35.0); Mean Corpuscular Hemoglobin 25.3 pg (27.0-33.0); Mean Platelet Volume 11.5 fL (9.4-12.3); Monocytes Absolute Auto 1.2 X10*3/uL (0.1-1.2); Monocytes Percent Auto 15.1 % (2-11); Neutrophils Absolute Auto 5.3 x10*3/uL (2.0-8.3); Neutrophils Percent Auto 64.5 % (45-73); Platelet Count 239 X10*3/uL (160-400); Red Blood Count 3.83 X10*6/uL (4.20-5.50); White Blood Count 8.2 X10*3/uL (4.8-10.8)
[2023-12-14 10:34] LABS: Alanine Aminotransferase 11 U/L (0-31); Albumin Level 3.8 g/dL (3.5-5.0); Alkaline Phosphatase 62 U/L (39-117); Anion Gap 15 (12-20); Aspartate Amino Transferase 13 U/L (5-31); Bilirubin Total 0.3 mg/dL (0.0-1.0); Blood Urea Nitrogen 16 mg/dL (9-16); Calcium 9.4 mg/dL (8.4-10.2); Carbon Dioxide 23 mmol/L (22-29); Chloride 106 mmol/L (96-108); Creatinine Clr Calc Pharmacy 38.1; Estimated Glomerular Filt Rate > 60; Ethanol < 10 mg/dL; Glucose Random 95 mg/dL (60-115); Potassium 3.9 mmol/L (3.3-5.1); Sodium 140 mmol/L (135-145); Total Protein 6.7 g/dL (6.5-8.0)
[2023-12-14 10:56] LABS: Influenza A PCR NEGATIVE (Negative); Influenza B PCR NEGATIVE (Negative); Resp Syncy Virus RNA Qual PCR NEGATIVE (Negative); SARS COV2 PCR INHOUSE NEGATIVE (Negative)
[2023-12-14 11:12] LABS: Appearance Urine Cloudy; Color Urine Yellow; Glucose Urine UA Negative (Negative); Leukocyte Esterase Urine Small (1+) (Negative); Nitrite Urine Negative (Negative); Specific Gravity - Urine 1.025 (1.005-1.025); UMIC TRIGGER UACC YES; Urine Blood Negative (Negative); Urine Ketones Trace mg/dL (Negative); Urine Protein Negative (Neg-Trace)
[2023-12-14 11:14] LABS: Bacteria Urine 4+ (None Seen); Hyaline Casts Urine 0-2 /LPF (0-2); RBC Urine 0-2 /HPF (0-2); UACC Culture Trigger YES
[2023-12-14 11:23] LABS: Amphetamine Screen Urine Not Detected (Not Detect); Barbiturates, Urine Not Detected (Not Detect); Benzodiazepines Screen Urine Not Detected (Not Detect); Buprenorphine Scr Not Detected (Not Detect); Cannabinoid Screen Urine Not Detected (Not Detect); Cocaine Screen Urine Not Detected (Not Detect); Fentanyl, urine POSITIVE (Not Detect); Methadone Screen, Urine Not Detected (Not Detect); Opiate Screen Urine Not Detected (Not Detect); Oxycodone Screen Urine Not Detected (Not Detect); Phencyclidine Screen Urine Not Detected (Not Detect)
[2023-12-14 12:58] VITALS: BP 104/59; PULSE 80; RESP 13; TEMP 36.5; O2SAT 98
[2023-12-14] MEDS: OLANZapine 5 MG TABLET PO (13:26)
[2023-12-14] MEDS: cefuroxime axetiL 250 MG TABLET PO (13:26)
--- NOTE | 2023-12-14 13:27 | PC.NURSE ---
Pt. continues to scream out, unable to redirect, continues to get out of bed without assistance. Has been screaming help for multiple hours. PO Zyprexa administered.
[2023-12-14 15:54] VITALS: BP 140/76; PULSE 77; RESP 14; TEMP 36.2; O2SAT 98
--- NOTE | 2023-12-14 17:55 | PC.NURSE ---
Pt. denies SI/HI at time of discharge.
[2023-12-14 17:56] VITALS: BP 140/76; PULSE 77; RESP 14; TEMP 36.2; O2SAT 98
== END 2023-12-14 17:57 | disposition skilled nursing facility (03) ==
PROVIDERS: Registered Nurse Emergency; Emergency Provider Emergency Medicine; PCP Family Medicine
DX: F03.94 Unspecified dementia, unspecified severity, with anxiety (principal); F05 Delirium due to known physiological condition; R45.851 Suicidal ideations; N39.0 Urinary tract infection, site not specified; Z03.818 Encounter for observation for suspected exposure to other biological agents ruled out; Z79.899 Other long term (current) drug therapy; Z51.81 Encounter for therapeutic drug level monitoring
CPT/HCPCS: 0241U; 36415; 80053; 80307; 81001; 85025; 87086; 99284